=== PATIENT | male | born 1960 | race Caucasian/White ===

== ENCOUNTER 2019-09-28 13:18 | Outpatient (CLI) | payer OTHER, SELFPAY ==
--- NOTE | ~2019-09-28 | CT_ITS ---
EXAMINATION: CT abdomen pelvis wo/w con DATE: 09/28/2019 14:11 INDICATION: Hematuria, weight loss, right-sided abdominal pain TECHNIQUE: Computed tomography (CT) of the abdomen and pelvis was performed without intravenous contr ast. CT of the abdomen and pelvis was then performed with a total of 130 mL Omnipaque 350 intravenous contrast using a double-bolus technique for simultaneous opacification of the renal parenchyma and r enal collecting system. The dose-length product (DLP) was 1491.59 mGy-cm. Automated exposure control and iterative reconstruction technique were employed. COMPARISON: 03/09/2019 FINDINGS: Minimal dependent atelectasis is present in the lung bases. The heart size is normal. A tra ce pericardial effusion is noted. The gallbladder is surgically absent. The liver, spleen, pancreas, and adrenal glands are normal. No stones are identified in the kidneys, ureters, or bladder. There is no hydronephrosis or hydroureter. Cysts of the left kidney measure up to 6 mm. No suspicious renal o r urothelial lesion is identified. No pathologically enlarged abdominal or pelvic lymph nodes are george ntified. There is no free intraperitoneal gas or evidence of bowel obstruction. There is calcified at herosclerosis of the aorta and many of the other arteries. The appendix is normal. There is colonic d iverticulosis without evidence of diverticulitis. Again noted is thickening of the sigmoid colon whic h is unchanged since the prior examination. There is severe lumbar spondylosis at L5-S1. IMPRESSION: 1. No CT correlate for the patient's symptoms. 2. Chronic thickening of the sigmoid colon which could reflect diverticulitis but correlation with co lonoscopy history is recommended to exclude underlying neoplasm. Reviewed, dictated and finalized at location A. DER IMPRESSION: 1. No CT correlate for the patient's symptoms. 2. Chronic thickening of the sigmoid colon which could reflect diverticulitis b ut correlation with colonoscopy history is recommended to exclude underlying ne oplasm.
[2019-09-28 13:42] LABS: Blood Urea Nitrogen 11 mg/dL (8-26); Estimated Glomerular Filt Rate > 60
== END 2019-09-28 13:19 ==
DX: R31.9 Hematuria, unspecified (principal); K63.89 Other specified diseases of intestine; R10.9 Unspecified abdominal pain
CPT/HCPCS: 74178; Q9967

== ENCOUNTER 2020-05-06 11:21 | Outpatient (CLI) | payer OTHER, SELFPAY ==
--- NOTE | ~2020-05-06 | MR_ITS ---
EXAMINATION: MR cervical spine wo con DATE: 05/06/2020 12:19 INDICATION: Cervical spondylosis. Neck pain. TECHNIQUE: Magnetic resonance imaging (MRI) of the cervical spine was performed without intravenous c ontrast. Sequences included sagittal T2-weighted FSE, sagittal STIR FSE, sagittal T1-weighted FSE, ax ial MERGE, and axial T2-weighted FSE. COMPARISON: Cervical spine MRI 07/12/2009 FINDINGS: There is 2 mm anterolisthesis of C3 on C4. Vertebral body heights are normal. There is mild ly decreased disc height at C3-C4, C5-C6, and C6-C7. The spinal cord signal intensity is normal. The following disc levels are specifically discussed: C2-C3: There is a central protrusion. There is moderate right uncovertebral joint osteoarthritis. The re is mild right and severe left facet joint osteoarthritis. There is mild bilateral neural foraminal stenosis. There is no central canal stenosis. C3-C4: The disc is bulging. There is mild right and severe left uncovertebral joint osteoarthritis. T here is mild right and severe left facet joint osteoarthritis. There is moderate left neural foramina l stenosis. There is mild central canal stenosis. C4-C5: The disc does not extend beyond the endplate margin. There is mild left uncovertebral joint os teoarthritis. There is mild right and severe left facet joint osteoarthritis. There is mild left neur al foraminal stenosis. There is no central canal stenosis. C5-C6: The disc is bulging. There is mild bilateral uncovertebral joint osteoarthritis. There is linda re right and moderate left facet joint osteoarthritis. There is mild left neural foraminal stenosis. There is mild central canal stenosis. C6-C7: The disc is bulging. There is mild bilateral uncovertebral joint osteoarthritis. There is mode rate right and severe left facet joint osteoarthritis. There is mild bilateral neural foraminal steno sis. There is no central canal stenosis. C7-T1: The disc does not extend beyond the endplate margin. There is no uncovertebral joint osteoarth ritis. There is moderate bilateral facet joint osteoarthritis. There is no neural foraminal stenosis. There is no central canal stenosis. IMPRESSION: 1. Moderate cervical spondylosis, worsened from 07/12/2009. Reviewed, dictated and finalized at location A.
== END 2020-05-06 11:22 ==
LOC: MICIMG 11:21
PROVIDERS: PCP Emergency Medicine; Visit Provider Emergency Medicine
DX: M47.892 Other spondylosis, cervical region (principal)
CPT/HCPCS: 72141

== ENCOUNTER 2020-06-26 10:45 | Outpatient (CLI) | payer OTHER, SELFPAY ==
--- NOTE | ~2020-06-26 | CT_ITS ---
EXAMINATION:CT lung screening DATE: 06/26/2020 10:59 INDICATION: Personal history of tobacco dependence. Current smoker with 54 pack year history. TECHNIQUE: Computed tomography (CT) of the chest was performed without intravenous contrast. Automate d exposure control and iterative reconstruction technique were employed. The dose-length product (DLP ) was 123.24 mGy-cm. COMPARISON: Chest CT 12/23/2018 FINDINGS: There is moderate emphysema. There is mild scarring at right lung apex. There is a 5 mm nod ule at left major fissure without change. There is a 5 mm nodule in left upper lobe without change. N o pleural effusion. The heart size is normal. There is a chronic small pericardial effusion. There is mild bilateral gynecomastia. There are changes of cholecystectomy. There is mild thoracic spondylosi s. IMPRESSION: 1. Lung-RADS category 2: Benign appearance or behavior. Continue annual screening with noncontrast lo w-dose chest CT in 12 months. Reviewed, dictated and finalized at location B. ANCE DIRECTOR IMPRESSION: 1. Lung-RADS category 2: Benign appearance or behavior. Continue annual screeni ng with noncontrast low-dose chest CT in 12 months.
== END 2020-06-26 10:46 ==
LOC: MICIMG 10:46
PROVIDERS: PCP Emergency Medicine; Visit Provider Emergency Medicine
DX: Z72.0 Tobacco use (principal); Z12.2 Encounter for screening for malignant neoplasm of respiratory organs
CPT/HCPCS: G0297

== ENCOUNTER 2021-01-17 11:21 | Emergency (ER) | payer OTHER, SELFPAY ==
--- NOTE | ~2021-01-17 | CT_ITS ---
EXAMINATION: CTA neck EXAM DATE: 01/17/2021 12:52 INDICATION: Right neck pain, difficulty swallowing. TECHNIQUE: Spiral CTA of the carotid arteries was performed with intravenous injection 100cc of Omnip aque 350. Axial, coronal, sagittal reformatted images reviewed. Additional reformatted images creat ed on dedicated 3-D workstation. NASCET comparable standard used to assess the degree of arterial st enosis. The dose-length product (DLP) for this examination was 555.09 mGy-cm. The exposure was tail ored according to patient size (auto mA exposure control), and iterative reconstruction (ASIR) was us ed as additional dose reduction technique. There is no prior study for comparison. FINDINGS: There is tiny amount of bilateral carotid bulb plaque, 0% stenosis bilaterally. Carotid sip hons are also widely patent. Left vertebral artery is dominant. No aortic arch, carotid, vertebral di ssection or evidence of fibromuscular dysplasia. No cervical lymphadenopathy. Parotid, submandibular glands are unremarkable. There is a right thyroid lobe 1.5 cm nodule. Parapharyngeal fat planes are clear. Mild to moderate paraseptal emphysema. Subcutaneous nodule overlying the right posterior cervical triangle, lateral aspect of the neck measu ring 1.8 cm, likely containing proteinaceous fluid. Location and appearance most consistent with seba ceous cyst but please clinically correlate. Advanced left-sided facet arthropathy C2-5, with signific ant left C3-4 neural foraminal stenosis suspected. IMPRESSION: 1. Bilateral carotid bulb 0% stenosis. 2. Right lateral neck subcutaneous nodule most likely sebaceous cyst. 3. Right thyroid lobe nodule; consider nonemergent ultrasound for risk stratification. 4. Mild to moderate paraseptal emphysema. 5. Cervical spondylosis. Reviewed, dictated and finalized at location B. IMPRESSION: 1. Bilateral carotid bulb 0% stenosis. 2. Right lateral neck subcutaneous nodule most likely sebaceous cyst. 3. Right thyroid lobe nodule; consider nonemergent ultrasound for risk stratif ication. 4. Mild to moderate paraseptal emphysema. 5. Cervical spondylosis.
[2021-01-17 11:26] VITALS: BP 150/94; PULSE 101; RESP 17; TEMP 36.7; O2SAT 100
[2021-01-17 12:01] VITALS: BP 139/86; PULSE 85; RESP 20; O2SAT 97
[2021-01-17 12:15] LABS: Basophils Percent Auto 0.4 % (0.2-1.2); Eosinophils Absolute Auto 0.1 K/mm3 (0-0.3); Eosinophils Percent Auto 0.9 % (0-4.4); Hematocrit 44.5 % (42.0-52.0); Hemoglobin 15.5 g/dL (14.0-18.0); Immature Granulocyte Absolute 0.03 K/mm3 (0.00-0.031); Immature Granulocyte Percent A 0.3 % (0-0.5); Lymphocytes Absolute Auto 2.07 K/mm3 (0.9-3.2); Lymphocytes Percent Auto 22.8 % (18.3-44.2); Mean Corpuscular HGB Conc 34.8 g/dl (32-36); Mean Corpuscular Hemoglobin 32.4 pg (26-34); Mean Corpuscular Volume 92.9 fl (80-100); Mean Platelet Volume 9.4 fl (7.4-10.4); Monocytes Absolute Auto 0.6 K/mm3 (0.1-0.6); Monocytes Percent Auto 6.2 % (2.6-8.5); Neutrophils Absolute Auto 6.3 K/mm3 (1.3-6.7); Neutrophils Percent Auto 69.4 % (45.5-73.1); Platelet Count Result 223 k/mm3 (150-375); Red Blood Count 4.79 M/mm3 (4.6-6.20); Red Cell Distribution Width 12.6 % (11.5-14.5); White Blood Count 9.1 K/mm3 (4.5-10.0)
--- NOTE | 2021-01-17 12:22 | ED.GENADULT ---
HPI - General Adult General Chief complaint: Neck Pain/Injury Stated complaint: neck started swelling up Time Seen by Provider: 01/17/21 11:38 History of Present Illness HPI narrative: Patient is a 60-year-old male who presents ER with right neck pain and swelling. Patient reports he was mowing his lawn a couple days ago when he felt a pop in his neck. He then reports became tight and she is started having pressure along his esophagus and trachea that gives him discomfort when he tries to swallow. No lightheadedness or syncope. Has discomfort that radiates down into his chest. No chest pain or new back pain. Patient reports chronic numbness to his right neck over the last year that is not related to this issue. Patient also reports a cyst on his right neck that he has not had evaluated. Related Data Home Medications Medication Instructions Recorded Confirmed hydrocodone 7.5 mg-acetaminophen 1 tablet PO Q8H PRN 09/15/20 09/27/20 325 mg tablet omeprazole 20 mg-sodium 1 cap PO DAILY 09/15/20 09/27/20 bicarbonate 1.1 gram capsule tamsulosin mg PO 01/17/21 Allergies Allergy/AdvReac Type Severity Reaction Status Date / Time latex Allergy Mild Rash Verified 01/17/21 11:40 Review of Systems Review of Systems: All systems reviewed & are unremarkable except as noted in HPI and below Constitutional: Constitutional: Denies chills and Denies fever(s) ENT: Denies nasal congestion and Denies sore throat Comments: Right neck pain Cardiovascular: Cardiovascular: Denies chest pain, Denies rapid heart rate and Denies radiating jaw, neck or arm pain Respiratory: Respiratory: Denies cough and Denies dyspnea Gastrointestinal: Gastrointestinal: Denies abdominal pain, Denies nausea and Denies vomiting Neurologic: Denies dizziness, Denies focal weakness and Reports numbness (Chronic right neck) [facility] Past Medical History Medical History (Updated 01/17/21 @ 14:18 by Harris Murillo MD) Carpal tunnel syndrome IBS (irritable bowel syndrome) Ulnar club hand Surgical History Surgical History Hx of cholecystectomy Social History Social History (Updated 09/27/20 @ 10:12 by Liz Weiner CMA) Smoking status: Former smoker Tobacco type: cigarettes Alcohol intake: never Substance use: never Gender identity (if verbalized by the patient): Male Exam Narrative: Exam Narrative: GENERAL: Well-appearing, well-nourished, and in no acute distress. HEAD: Normocephalic, atraumatic. ENT: Normal posterior oropharynx. Tolerating oral secretions without issue. NECK: Supple. No discernible swelling. Large sebaceous cyst right side. Trachea midline. CHEST: Clear to auscultation. No respiratory distress. No stridor. HEART: Regular rate and rhythm. Normal peripheral pulses. EXTREMITIES: Normal range of motion. No edema. SKIN: Warm, dry, no rash. NEURO: Alert and oriented x3. PSYCH: Normal mood and affect. Course Course Emergency Course: Patient informed of results. Discharge home. Vital Signs Vital signs: Vital Signs Temperature 98.1 F 01/17/21 11:26 Pulse Rate 101 H 01/17/21 11:26 Respiratory Rate 17 01/17/21 11:26 Blood Pressure 150/94 H 01/17/21 11:26 Pulse Oximetry 100 01/17/21 11:26 Temperature 98.1 F 01/17/21 11:26 Pulse Rate 70 01/17/21 13:02 Respiratory Rate 13 01/17/21 13:02 Blood Pressure 139/85 01/17/21 13:02 Pulse Oximetry 100 01/17/21 13:02 Medical Decision Making Vital Signs Vital Signs: Vital Signs Temperature 98.1 F 01/17/21 11:26 Pulse Rate 101 H 01/17/21 11:26 Respiratory Rate 17 01/17/21 11:26 Blood Pressure 150/94 H 01/17/21 11:26 Pulse Oximetry 100 01/17/21 11:26 Temperature 98.1 F 01/17/21 11:26 Pulse Rate 70 01/17/21 13:02 Respiratory Rate 13 01/17/21 13:02 Blood Pressure 139/85 01/17/21 13:02 Pulse Oximetry 100 01/17/21 13:02 Lab Da
[2021-01-17 12:23] LABS: Anion Gap 10 mmol/L (8-16); Blood Urea Nitrogen 7 mg/dL (9-20); Calcium 9.6 mg/dL (8.4-10.2); Carbon Dioxide 24 mmol/L (22-30); Chloride 108 mmol/L (98-107); Estimated CRCL calculation 79 ml/min; Estimated Glomerular Filt Rate > 60; Glucose 106 mg/dL (75-110); Potassium 4.1 mmol/L (3.4-5.0); Sodium 142 mmol/L (137-145)
[2021-01-17 12:24] LABS: INR 0.9; Partial Thromboplastin Time 30.9 SECONDS (22.3-36.8); Prothrombin Time 12.6 Seconds (11.1-14.7)
[2021-01-17 12:54] VITALS: BP 153/87; PULSE 73; RESP 18; O2SAT 100
[2021-01-17 13:02] VITALS: BP 139/85; PULSE 70; RESP 13; O2SAT 100
[2021-01-17 14:30] VITALS: BP 136/81; PULSE 82; RESP 16; O2SAT 100
== END 2021-01-17 14:30 | disposition home or self-care (01) ==
PROVIDERS: Emergency Provider Emergency Medicine; PCP Emergency Medicine
DX: S16.1XXA Strain of muscle, fascia and tendon at neck level, initial encounter (principal); E04.1 Nontoxic single thyroid nodule; K58.9 Irritable bowel syndrome, unspecified; Z87.891 Personal history of nicotine dependence; M47.812 Spondylosis without myelopathy or radiculopathy, cervical region; J43.9 Emphysema, unspecified; X50.9XXA Other and unspecified overexertion or strenuous movements or postures, initial encounter
CPT/HCPCS: 36415; 70498; 80048; 85025; 85610; 85730; 99284; Q9967

== ENCOUNTER → 2021-01-27 10:09 | Outpatient (CLI) | payer OTHER, SELFPAY ==
--- NOTE | ~2021-01-27 | US_ITS ---
EXAMINATION: US thyroid DATE: 01/27/2021 10:27 INDICATION: Thyroid nodule TECHNIQUE: Multiple ultrasound images of the thyroid were obtained. COMPARISON: CTA neck dated 01/17/2021 FINDINGS: The right thyroid lobe measures 3.8 x 2.3 x 1.4 cm. The left thyroid lobe measures 3.5 x 1.5 x 1.1 c m. Thyroid isthmus measures 5 mm in thickness. 1.9 cm wider than tall solid hypoechoic nodule with sm ooth margins and without echogenic foci (TI-RADS 4, moderately suspicious , FNA if >=1.5 cm, annual f ollowup is >=1 cm) in the right thyroid lobe. There is normal echotexture, echogenicity and vascular flow throughout the thyroid gland. IMPRESSION: 1. 0.9 cm solid TI RADS 4 nodule in the right thyroid for which ultrasound-guided biopsy would be rec ommended. Reviewed, dictated and finalized at location A. IMPRESSION: 1. 0.9 cm solid TI RADS 4 nodule in the right thyroid for which ultrasound-guid ed biopsy would be recommended.
== END ==
PROVIDERS: Visit Provider Emergency Medicine
DX: E04.1 Nontoxic single thyroid nodule (principal)
CPT/HCPCS: 76536

== ENCOUNTER 2021-02-16 10:10 | Outpatient (CLI) | payer OTHER, SELFPAY ==
--- NOTE | ~2021-02-16 | US_ITS ---
EXAMINATION: US FNA w image guidance DATE: 02/16/2021 11:14 INDICATION: Right thyroid nodule. TECHNIQUE: The procedure and its benefits and risks were discussed with the patient. Risks specifically discusse d included bleeding. The patient verbalized understanding of the risks and agreed to proceed. The nec k was prepped and draped in the usual sterile manner. 1% lidocaine was used for local anesthesia. 5 passes were made with a 25G needle into the lesion under ultrasound guidance. There were no immedia te complications. The patient understood to call the ordering physician for results after a week and a half and verbalized that understanding. FINDINGS: Grayscale ultrasound images demonstrate needles advanced into a 2.1 cm nodule in right thyroid lobe f or biopsy. IMPRESSION: 1. Ultrasound-guided fine needle aspiration of a right thyroid nodule. Reviewed, dictated and finalized at location A.
== END 2021-02-16 10:11 | disposition home or self-care (01) ==
PROVIDERS: PCP Emergency Medicine; Visit Provider Otolaryngology
DX: E04.1 Nontoxic single thyroid nodule (principal)
CPT/HCPCS: 10005; 88173; 88305

== ENCOUNTER 2021-02-19 18:53 | Emergency (ER) | payer OTHER, SELFPAY ==
[2021-02-19 19:52] VITALS: BP 131/88; PULSE 98; RESP 17; TEMP 36.7; O2SAT 99
[2021-02-19 20:16] LABS: Basophils Percent Auto 0.3 % (0.2-1.2); Eosinophils Percent Auto 0.1 % (0-4.4); Hematocrit 45.6 % (42.0-52.0); Immature Granulocyte Absolute 0.06 K/mm3 (0.00-0.031); Immature Granulocyte Percent A 0.4 % (0-0.5); Lymphocytes Absolute Auto 1.96 K/mm3 (0.9-3.2); Lymphocytes Percent Auto 12.6 % (18.3-44.2); Mean Corpuscular HGB Conc 35.1 g/dl (32-36); Mean Corpuscular Hemoglobin 32.7 pg (26-34); Mean Corpuscular Volume 93.1 fl (80-100); Mean Platelet Volume 9.5 fl (7.4-10.4); Monocytes Absolute Auto 1.4 K/mm3 (0.1-0.6); Monocytes Percent Auto 8.9 % (2.6-8.5); Neutrophils Absolute Auto 12.1 K/mm3 (1.3-6.7); Neutrophils Percent Auto 77.7 % (45.5-73.1); Platelet Count Result 218 k/mm3 (150-375); Red Cell Distribution Width 12.4 % (11.5-14.5); White Blood Count 15.6 K/mm3 (4.5-10.0)
[2021-02-19 20:24] LABS: Add Urine Microscopic? YES; Appearance Urine Clear (Clear); Bacteria Urine Trace /hpf; Bilirubin Urine Negative (Negative); Blood Urine 1+ (Negative); Color Urine Yellow (Yellow); Glucose Urine UA Negative (Negative); Ketones Urine 2+ mg/dL (Negative); Leukocyte Esterase Ur Negative LEU/UL (Negative); Mucus Urine Heavy /lpf; Nitrate Urine Negative (Negative); Protein Urine 1+ mg/dL (Negative); Specific Grav Ur 1.024 (1.001-1.035); Squamous Epithelial Cell Urine Occasional /hpf (Few); Urobilinogen Urine Negative mg/dL (<2.0); WBC Urine 0-3 /hpf
[2021-02-19 20:26] LABS: Alanine Aminotransferase 14 U/L (4-50); Albumin Level 4.7 g/dL (3.5-5.1); Alkaline Phosphatase 102 U/L (38-126); Anion Gap 12 mmol/L (8-16); Aspartate Amino Transferase 20 U/L (17-59); Blood Urea Nitrogen 9 mg/dL (9-20); Calcium 9.6 mg/dL (8.4-10.2); Carbon Dioxide 23 mmol/L (22-30); Chloride 104 mmol/L (98-107); Estimated CRCL calculation 87 ml/min; Estimated Glomerular Filt Rate > 60; Glucose 97 mg/dL (75-110); Lipase 83 U/L (23-300); Potassium 3.9 mmol/L (3.4-5.0); Sodium 139 mmol/L (137-145)
[2021-02-19 21:44] VITALS: BP 140/77; PULSE 96; RESP 14; TEMP 37; O2SAT 99
--- NOTE | 2021-02-20 00:39 | PC.NURSE ---
Pt called to be roomed. No answer from the WR.
== END 2021-02-20 03:28 | disposition left against medical advice (07) ==
PROVIDERS: Emergency Provider Emergency Medicine; PCP Emergency Medicine
DX: Z53.21 Procedure and treatment not carried out due to patient leaving prior to being seen by health care provider (principal)
CPT/HCPCS: 36415; 80053; 81001; 83690; 85025; 99199

== ENCOUNTER 2021-03-05 12:34 | Emergency (ER) | payer OTHER, SELFPAY ==
[2021-03-05 12:50] VITALS: BP 134/99; PULSE 84; RESP 17; TEMP 36.7; O2SAT 100
--- NOTE | 2021-03-05 13:58 | ED.SKABFB ---
HPI - Skin/Abscess/Foreign Bdy General Chief complaint: Skin/Abscess/Foreign Body Stated complaint: Lump on Neck Source: patient and RN notes reviewed Limitations: no limitations History of Present Illness HPI narrative: The patient, on minimal meds who is followed by ENT, presents with neck pain/wound check. Patient states he has had a recent CT scan of his neck and ultrasound biopsy of his thyroid after being seen by ENT for thyroid nodule and separate cyst. He also has a known ganglion cyst of the right neck, US shows sebaceous cyst. The last couple days has had increasing redness and discomfort with spontaneous discharge this morning -despite the Augmentin provided by his doctor. No fever, hoarseness, trismus, abscess / fluctuance -and the discharge is thick/cheesy. He has upcoming appointment, discussed plan to provide pain meds and slightly stronger antibiotic [ so stop augmentin] . 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 Related Data Home Medications Medication Instructions Recorded Confirmed amoxicillin-pot clavulanate 1 tablet PO DAILY 03/05/21 03/05/21 Allergies Allergy/AdvReac Type Severity Reaction Status Date / Time latex Allergy Mild Rash Verified 03/05/21 12:52 Review of Systems Review of Systems: Narrative: General/Constitutional: No weight loss,fever Eyes: N0: Redness,discharge Ears/Nose/Throat: No: Epistaxis,ear discharge Respiratory: Denies: Hemoptysis Gastrointestinal: No Vomiting, Bleeding-rectal Skin: REPORTS lumps, eruption Neurologic: No Focal Weakness,Sz Hematologic: Denies: Petechiae/Purpura Psychiatric: No: Suicida ideationl All Other Systems: Reviewed and Negative [facility] Past Medical History Medical History (Updated 03/06/21 @ 00:01 by Lakshmi Garsia) Carpal tunnel syndrome IBS (irritable bowel syndrome) Ulnar club hand Surgical History Surgical History Hx of cholecystectomy Social History Social History (Updated 09/27/20 @ 10:12 by Liz Weiner CMA) Smoking status: Former smoker Tobacco type: cigarettes Alcohol intake: never Substance use: never Gender identity (if verbalized by the patient): Male Comments At time of signature, agree with nursing past medical, surgical, social and family history. There is no relevant family history pertinent to the presenting complaint Exam Narrative: Exam Narrative: General Appearance: Well appearing, Well nourished, No distress EYE: PERRLA, EOMI Ears: External ear normal, Auditory canal normal Nose: Normal nose, Nares clear Mouth/Throat: Normal appearing, Normal lips Neck: Supple, No adenopathy Respiratory: Airway patent, No respiratory distress Skin: Warm, Dry; infected sebaceous cyst on the right neck with spontaneously oozing cheesy discharge Neurological: A&O x3, CN II-X intact Psychiatric: Normal mood, Normal affect Course Vital Signs Vital signs: Vital Signs Temperature 98.1 F 03/05/21 12:50 Pulse Rate 84 03/05/21 12:50 Respiratory Rate 17 03/05/21 12:50 Blood Pressure 134/99 H 03/05/21 12:50 Pulse Oximetry 100 03/05/21 12:50 Temperature 98.1 F 03/05/21 12:50 Pulse Rate 84 03/05/21 12:50 Respiratory Rate 17 03/05/21 12:50 Blood Pressure 134/99 H 03/05/21 12:50 Pulse Oximetry 100 03/05/21 12:50 Discharge Plan Discharge Clinical Impression: Infected cyst of skin Patient Disposition: Home, Self-Care Condition: Stable Instructions: Antibiotic Form Additional Instructions: Take clindamycin with food, probiotics, or antacids; stop if diarrhea occurs Keep photo log of area; see ENT as scheduled this week Prescriptions: New cyclobenzaprine 10 mg tablet 10 mg PO BID Qty: 20 RF: 0 acetaminophen-codeine 120-12 mg/5 mL solution 5 - 7.5 ml PO HS PRN (Reason: pain) Qty: 118
== END 2021-03-05 14:06 | disposition home or self-care (01) ==
PROVIDERS: Emergency Provider Emergency Medicine; PCP Emergency Medicine
DX: L72.0 Epidermal cyst (principal); Z87.891 Personal history of nicotine dependence
CPT/HCPCS: 99213; G0463

== ENCOUNTER 2021-09-04 14:31 | Emergency (ER) | payer OTHER, SELFPAY ==
--- NOTE | ~2021-09-04 | XR_ITS ---
EXAMINATION: XR knee LT 3V DATE: 09/04/2021 15:05 INDICATION: Left knee pain. TECHNIQUE: 3 views of left knee were obtained. COMPARISON: None. FINDINGS: Bone alignment is normal. No fracture. There is mild tricompartmental osteoarthritis charac terized by tiny marginal osteophytes. No joint space narrowing. There is a small knee joint effusion. IMPRESSION: 1. Mild left knee osteoarthritis. 2. Small left knee joint effusion. Reviewed, dictated and finalized at location A. RIOR DESIGN DIRECTOR
--- NOTE | 2021-09-04 14:37 | ED.LOWEXIN ---
HPI - Extremity Injury (Lower) General Chief Complaint: Extremity Injury, Lower Stated Complaint: Left Knee Pain Time Seen by Provider: 09/04/21 14:43 Source: patient, RN notes reviewed and old records reviewed Mode of arrival: ambulatory Limitations: no limitations History of Present Illness HPI Narrative: 60-year-old male presents to the [facility] with complaints of left knee pain for 2 days. Has taken ibuprofen, tried using a knee brace, icing it and heating it Related Data Allergies Allergy/AdvReac Type Severity Reaction Status Date / Time latex Allergy Mild Rash Verified 09/04/21 15:24 Review of Systems Review of Systems: All systems reviewed & are unremarkable except as noted in HPI and below Constitutional: Constitutional: Reports no additional constitutional complaints, Denies chills and Denies fever(s) Eyes: Eyes: Reports no additional eye complaints ENT: Reports system reviewed and no additional complaints, except as documented Cardiovascular: Cardiovascular: Reports no additional cardiovascular complaints and Denies chest pain Respiratory: Respiratory: Reports no additional respiratory complaints Gastrointestinal: Gastrointestinal: Reports no additional gastrointestinal complaints Musculoskeletal: Musculoskeletal: Reports as per HPI, Reports arthralgias (left knee) and Reports joint swelling (left knee) Comments: walking with a limp Integumentary/Breasts: Skin/Breast: Reports system reviewed and no additional complaints, except as docu Neurologic: Reports system reviewed and no additional complaints, except as documented Psychiatric: Psychiatric: Reports no additional psychiatric complaints Allergic/Immunologic: Allergic/Immunologic: Reports no additional allergic/immunologic complaints PMFSH Past Medical History Medical History Carpal tunnel syndrome IBS (irritable bowel syndrome) Ulnar club hand Surgical History Surgical History Hx of cholecystectomy Social History Social History Smoking status: Former smoker Tobacco type: cigarettes Alcohol intake: never Substance use: never Gender identity (if verbalized by the patient): Male Comments At the time of my signature, I reviewed and agree with the nursing past medical, surgical, social, and family history. There is no relevant family history pertinent to the patient complaint. Exam Const: General: healthy appearing, no acute distress and alert Nutritional Appearance: well nourished Orientation/consciousness: patient oriented x3 Limitations: no limitations HENMT: Head: normal to inspection Ears: external ears normal Eyes: Pupils: Equal, round and reactive pupils present Neck: Neck: normal visual inspection, no lymphadenopathy and no meningeal signs Chest: Chest palpation & inspection: normal inspection of the chest Resp: Effort & Inspection: normal respiratory effort Cardio: Rate: regular rate Back/Spine/Pelvis: Back: no CVA tenderness Skin: General skin exam: normal color Rashes: no rashes Wounds: no wounds Neuro: General: patient oriented x3, moves all extremities, no meningeal signs and no focal motor deficits Cranial nerves: Yes Equal, round and reactive pupils present Speech: normal speech Gait exam (Neuro): gait abnormal (walking with a limp favoring left leg) Extrem: General: full ROM, capillary refill normal and normal exam except as noted Left lower extremity: knee Details: tenderness (Posterior and lateral), swelling (Mild lateral), normal ROM and knee ligament exam normal; no abrasions, no ecchymosis, no penetrating wound, no deformity and no unusual warmth Psych: Appearance: grossly normal and well kempt Mental Status: mental status grossly normal Affect: normal affect Attitude: cooperative Thought content: Yes Normal thought content present Course Cou
[2021-09-04 14:42] VITALS: BP 147/87; PULSE 91; RESP 16; TEMP 37.2; O2SAT 99
== END 2021-09-04 15:24 | disposition home or self-care (01) ==
PROVIDERS: Emergency Provider Nurse Practitioner; PCP Emergency Medicine
DX: M25.462 Effusion, left knee (principal); M17.12 Unilateral primary osteoarthritis, left knee; Z87.891 Personal history of nicotine dependence
CPT/HCPCS: 73562; 99213; G0463

== ENCOUNTER → 2021-10-19 13:16 | Outpatient (CLI) | payer OTHER, SELFPAY ==
--- NOTE | ~2021-10-19 | CT_ITS ---
EXAMINATION: CT lung screening DATE: 10/19/2021 13:35 INDICATION: Personal history of tobacco dependence. Lung cancer screening. TECHNIQUE: Computed tomography (CT) of the chest was performed without intravenous contrast. The dose -length product was 93.64 mGy-cm. Automated exposure control and iterative reconstruction technique w ere employed. COMPARISON: CT dated 06/26/2020 FINDINGS: Small pericardial effusion. Heart size normal. No thoracic lymphadenopathy. No significant pleural effusion. There are cholecystectomy clips. There is moderate emphysema. There is a 4 mm left upper lobe nodule, unchanged. There is a 5 mm nodule of the left major fissure without change. Calcif ied granuloma right upper lobe. No new pulmonary nodules or masses. There is bilateral gynecomastia. IMPRESSION: 1. Lung-RADS category 2: Benign appearance or behavior. Continue annual screening with noncontrast lo w-dose chest CT in 12 months. Reviewed, dictated and finalized at location A. WELDER IMPRESSION: 1. Lung-RADS category 2: Benign appearance or behavior. Continue annual screeni ng with noncontrast low-dose chest CT in 12 months.
== END ==
PROVIDERS: PCP Emergency Medicine; Visit Provider Emergency Medicine
DX: Z12.2 Encounter for screening for malignant neoplasm of respiratory organs (principal); Z87.891 Personal history of nicotine dependence
CPT/HCPCS: 71271

== ENCOUNTER 2021-11-29 13:49 | Outpatient (CLI) | payer OTHER, SELFPAY ==
--- NOTE | ~2021-11-29 | US_ITS ---
EXAMINATION: US soft tissue head and neck EXAM DATE: 11/29/2021 14:14 INDICATION: Neck pain on left side . TECHNIQUE: Multiple grayscale and Doppler images of the left-sided neck symptomatic region were obtai estrella (by a technologist who performed the scan) and subsequently reviewed. There is no prior study fo r comparison. FINDINGS: Scanning in the left-sided neck area of concern demonstrated several small internal jugular chain lym ph nodes well within normal size limits. Unremarkable skin, subcutaneous fat, sternocleidomastoid. IMPRESSION: Small left internal jugular chain lymph nodes well within normal size limits. Reviewed, dictated and finalized at location B. IMPRESSION: Small left internal jugular chain lymph nodes well within normal si ze limits.
== END 2021-11-29 13:50 ==
LOC: MICIMG 13:49
PROVIDERS: PCP Emergency Medicine; Visit Provider Otolaryngology
DX: M54.2 Cervicalgia (principal)
CPT/HCPCS: 76536

== ENCOUNTER 2022-01-05 12:16 | Emergency (ER) | payer OTHER, SELFPAY ==
--- NOTE | 2022-01-05 12:24 | ED.EYEPROB ---
HPI - Eye Problem General Chief complaint: Eye Problems Stated complaint: right eye redness/pain Time Seen by Provider: 01/05/22 12:25 Source: patient and RN notes reviewed Mode of arrival: ambulatory Limitations: no limitations History of Present Illness HPI Narrative: 61-year-old male presents to the [facility] with right eye redness, pain, drainage and crusting that started 2 days ago. Swelling noted to the right lower lid. thought it was a stye and has been using warm compresses chief complaint: eye pain (right eye) and eye redness Related Data Allergies Allergy/AdvReac Type Severity Reaction Status Date / Time latex Allergy Mild Rash Verified 01/05/22 12:24 Review of Systems Review of Systems: All systems reviewed & are unremarkable except as noted in HPI and below Constitutional: Constitutional: Reports no additional constitutional complaints, Denies chills and Denies fever(s) Eyes: Eyes: Reports as per HPI, Denies blind spots, Denies blurry vision, Denies exophthalmos, Denies change in vision, Reports eye discharge, Reports irritation, Reports itchy eyes, Denies eye pain, Denies requires corrective lenses and Denies photophobia ENT: Reports system reviewed and no additional complaints, except as documented Cardiovascular: Cardiovascular: Reports no additional cardiovascular complaints Respiratory: Respiratory: Reports no additional respiratory complaints Gastrointestinal: Gastrointestinal: Reports no additional gastrointestinal complaints Musculoskeletal: Musculoskeletal: Reports no additional musculoskeletal complaints Integumentary/Breasts: Skin/Breast: Reports system reviewed and no additional complaints, except as docu Neurologic: Reports system reviewed and no additional complaints, except as documented Psychiatric: Psychiatric: Reports no additional psychiatric complaints Allergic/Immunologic: Allergic/Immunologic: Reports no additional allergic/immunologic complaints [facility] Past Medical History Medical History Carpal tunnel syndrome IBS (irritable bowel syndrome) Ulnar club hand Surgical History Surgical History Hx of cholecystectomy Social History Social History Smoking status: Former smoker Tobacco type: cigarettes Alcohol intake: never Substance use: never Gender identity (if verbalized by the patient): Male Comments At the time of my signature, I reviewed and agree with the nursing past medical, surgical, social, and family history. There is no relevant family history pertinent to the patient complaint. Exam Const: General: healthy appearing, no acute distress and alert Nutritional Appearance: well nourished Orientation/consciousness: patient oriented x3 Limitations: no limitations HENMT: Head: normal to inspection Ears: external ears normal Eyes: General: appearance normal, both eyes and all related structures Visual Stapleton: normal visual stapleton by confrontation Eyelids: eyelid abnormality right lower eyelid inflamed cyst, erythema, lid margins crusty/scaly, swelling and tenderness Conjunctivae: conjunctival abnormality right conjunctival injection localized (Right lower lid) and discharge mucoid; without chemosis and without subconjunctival hemmorhages Pupils: Equal, round and reactive pupils present Neck: Neck: normal visual inspection, no lymphadenopathy and no meningeal signs Chest: Chest palpation & inspection: normal inspection of the chest Resp: Effort & Inspection: normal respiratory effort and no use of accessory muscles Auscultation: clear to auscultation bilaterally, no crackles, no rales, no rhonchi and no wheezes Cardio: Rate: regular rate Rhythm: regular rhythm GI: GI Palp: Yes Soft to palpation and No Tenderness to palpation present (GI) Back/Spine/Pelvis: Back: no CVA tenderness Skin: Gener
[2022-01-05 12:26] VITALS: BP 129/87; PULSE 77; RESP 16; TEMP 36.4; O2SAT 99
== END 2022-01-05 12:50 | disposition home or self-care (01) ==
PROVIDERS: Emergency Provider Nurse Practitioner; PCP Emergency Medicine
DX: H10.9 Unspecified conjunctivitis (principal); H00.012 Hordeolum externum right lower eyelid; Z87.891 Personal history of nicotine dependence
CPT/HCPCS: 99213; A9270; G0463

== ENCOUNTER 2023-05-26 13:19 | Emergency (ER) | payer BC, SELFPAY ==
--- NOTE | ~2023-05-26 | CT_ITS ---
EXAMINATION: CT abdomen pelvis wo con DATE: 05/26/2023 13:52 INDICATION: Right flank pain. TECHNIQUE: Computed tomography (CT) of the abdomen and pelvis was performed without intravenous contr ast. Automated exposure control and iterative reconstruction technique were employed. The dose-length product was 179.97 mGy-cm. COMPARISON: CT abdomen and pelvis 09/28/2019 FINDINGS: The visualized portions of the lung bases demonstrated minimal atelectasis on the left. No pleural effusion. The heart size is normal. There is a stable small pericardial effusion. The liver a nd spleen are normal. There are changes of cholecystectomy. The pancreas, adrenal glands, and right k idney are normal. There is a 13 mm cyst in left kidney. There is no urolithiasis. The prostate is mil dly enlarged. There is calcified atherosclerosis of the aorta and many of the other arteries. There i s diverticulosis of the colon without evidence of diverticulitis. There are no dilated loops of bowel . The appendix is normal. There are no pathologically enlarged lymph nodes. There is no free intraper itoneal fluid. There is severe lumbar spondylosis. IMPRESSION: 1. No urolithiasis. Reviewed, dictated and finalized at location A. IMPRESSION: 1. No urolithiasis.
--- NOTE | ~2023-05-26 | XR_ITS ---
EXAMINATION: XR chest 2V DATE: 05/26/2023 13:55 INDICATION: Chest pain and right flank pain TECHNIQUE: PA and lateral views of the chest were obtained. COMPARISON: Chest CT dated 10/19/2021 FINDINGS: Mild increased lucency in the parasternal upper lungs consistent with emphysema better appreciated on prior CT. Small focus of linear lingular atelectasis/scarring extending peripherally from the apex o f heart. No other airspace opacities, pulmonary edema, pleural effusion or pneumothorax. Heart size i s normal. Mild thoracic spondylosis with chronic mild anterior wedging at T7. IMPRESSION: 1. Emphysema with mild lingular atelectasis/scarring. Reviewed, dictated and finalized at location A.
[2023-05-26 13:23] VITALS: BP 143/85; PULSE 73; RESP 16; O2SAT 100
--- NOTE | 2023-05-26 13:32 | ED.BACK ---
HPI - Back Pain/Injury General Chief Complaint: Back Pain/Injury Stated Complaint: right flank pain Time Seen by Provider: 05/26/23 13:31 History of Present Illness HPI Narrative: Patient is a 62-year-old male with history of diverticulosis, chronic back and neck pain here with right sided flank pain. he notes that his flank pain began 4 days ago, seems to be located over the right flank and radiates anteriorly into the lower abdomen. He notes he has had some increased urinary frequency does drink quite a bit a water so he is unsure if this is a change for him. He denies dysuria or hematuria. He notes a history of chronic back pain and initially thought that this was his back pain however the nature of it seemed to be quite a bit different so he decided to present to the emergency department to get seen. He does note chronic lower extremity numbness which is unchanged from his baseline. Denies bowel or bladder incontinence. No saddle anesthesia. No history of prior kidney stones. He additionally does note some neck pain and left-sided chest pain which she notes has been constant for the last 2 years. This is unchanged. He denies cough, congestion, fever, chills. Related Data Allergies Allergy/AdvReac Type Severity Reaction Status Date / Time latex Allergy Mild Rash Verified 05/26/23 14:16 Review of Systems Review of Systems: All systems reviewed & are unremarkable except as noted in HPI and below PMFSH Past Medical History Medical History Carpal tunnel syndrome IBS (irritable bowel syndrome) Ulnar club hand Surgical History Surgical History Hx of cholecystectomy Social History Social History Smoking status: Former smoker Tobacco type: cigarettes Alcohol intake: never Substance use: never Living arrangements: with family Occupation/Education: retired Gender identity (if verbalized by the patient): Male Exam Narrative: GENERAL: Well-appearing, well-nourished, and in no acute distress. HEAD: Normocephalic, atraumatic. EYES: PERRLA and EOMI. ENT: Nares clear. Mucous membranes moist. NECK: Supple. CHEST: Clear to auscultation. No respiratory distress. HEART: Regular rate and rhythm. Normal peripheral pulses. ABDOMEN: Soft, nontender, nondistended. Right sided CVA tenderness. No left CVA tenderness. EXTREMITIES: Normal range of motion. No edema. No midline thoracic or lumbar tenderness. SKIN: Warm, dry, no rash. NEURO: No focal deficits. Alert and oriented x3. PSYCH: Normal mood and affect. Course Course Emergency Course: Chart review performed. Patient is here with right sided flank pain. Triage vitals show mild HTN, otherwise normal. Patient seen evaluated, is here with right-sided flank pain radiating to the abdomen, concern for nephrolithiasis versus pyelonephritis. CT abdomen pelvis, UA, basic abdominal labs ordered. He is additionally complaining of some chest pain that is been present for several years, given age and risk factors we will do a screening cardiac workup including chest x-ray, troponin, EKG. Patient agreeable to plan of care. Lab work and imaging reviewed, WBC 10.1, CMP normal, LFTs normal, UA negative for infection or blood. Troponin negative, CXR negative. CT abdomen pelvis negative. The results of pertinent diagnostic studies and exam findings were discussed. The patient?s provisional diagnosis and plan of care were discussed with the patient and present family. The patient and/or present family expressed understanding of the diagnosis and plan. The nurse was instructed to provide written instructions and appropriate follow-up information. The patient understands their need and responsibility to obtain additional follow-up as instructed. The risks of medications administered and prescribed were discussed w
--- NOTE | 2023-05-26 13:42 | ECG_ITS ---
Measurements Intervals Deport Rate: 71 P: 54 DC: 137 QRS: 57 QRSD: 88 T: 61 QT: 365 QTc: 399 Interpretive Statements SINUS RHYTHM NO PREVIOUS ECG AVAILABLE FOR COMPARISON Electronically Signed On 05-27-2023 15:53:44 CDT by Iglesia Childs M.D.
[2023-05-26 13:45] LABS: Basophils Absolute Auto 0.1 K/mm3 (0.0-0.1); Basophils Percent Auto 0.5 % (0.2-1.2); Eosinophils Absolute Auto 0.1 K/mm3 (0-0.3); Eosinophils Percent Auto 1.1 % (0-4.4); Hematocrit 47.7 % (42.0-52.0); Hemoglobin 16.6 g/dL (14.0-18.0); Immature Granulocyte Absolute 0.03 K/mm3 (0.00-0.031); Immature Granulocyte Percent A 0.3 % (0-0.5); Lymphocytes Percent Auto 21.8 % (18.3-44.2); Mean Corpuscular HGB Conc 34.8 g/dl (32-36); Mean Corpuscular Hemoglobin 33.3 pg (26-34); Mean Corpuscular Volume 95.6 fl (80-100); Mean Platelet Volume 9.4 fl (7.4-10.4); Monocytes Absolute Auto 0.5 K/mm3 (0.1-0.6); Monocytes Percent Auto 4.5 % (2.6-8.5); Neutrophils Absolute Auto 7.2 K/mm3 (1.3-6.7); Neutrophils Percent Auto 71.8 % (45.5-73.1); Platelet Count Result 246 k/mm3 (150-375); Red Blood Count 4.99 M/mm3 (4.6-6.20); Red Cell Distribution Width 12.4 % (11.5-14.5); White Blood Count 10.1 K/mm3 (4.5-10.0)
[2023-05-26 13:46] LABS: Add Urine Microscopic? NO; Appearance Urine Clear (Clear); Bilirubin Urine Negative (Negative); Blood Urine Negative (Negative); Color Urine Yellow (Yellow); Glucose Urine UA Negative (Negative); Ketones Urine Negative (Negative); Leukocyte Esterase Ur Negative LEU/UL (Negative); Nitrate Urine Negative (Negative); Protein Urine Negative (Negative); Specific Grav Ur <= 1.005 (1.001-1.035); Urobilinogen Urine 0.2 mg/dL (<2.0); pH Urine 5.5 (5.0-9.0)
[2023-05-26 13:49] LABS: Bacteria Urine None Seen /hpf; Non Pathogenic Casts 0-2; RBC Urine 0-2 /hpf (0-2); Squamous Epithelial Cell Urine None seen /hpf (Few); WBC Urine 0-5 /hpf
[2023-05-26 13:56] LABS: Alanine Aminotransferase 19 U/L (6-50); Alkaline Phosphatase 81 U/L (38-126); Anion Gap 7 mmol/L (8-16); Aspartate Amino Transferase 28 U/L (17-59); Bilirubin,Total 0.7 mg/dL (0.2-1.3); Blood Urea Nitrogen 12 mg/dL (9-20); Calcium 9.4 mg/dL (8.4-10.2); Carbon Dioxide 27 mmol/L (22-30); Chloride 104 mmol/L (98-107); Estimated CRCL calculation 78 ml/min; Estimated Glomerular Filt Rate > 60; Glucose 123 mg/dL (65-110); Lipase 239 U/L (23-300); Potassium 4.4 mmol/L (3.4-5.0); Sodium 138 mmol/L (137-145)
[2023-05-26] MEDS: ACETAMINOPHEN 500 MG TABLET 1000 MG PO (14:22)
[2023-05-26] MEDS: KETOROLAC 30 MG/ML VIAL (*BKC) 15 MG IV PUSH (14:22)
[2023-05-26 14:33] LABS: Troponin I < 0.012 ng/mL (0.000-0.034)
== END 2023-05-26 15:06 | disposition home or self-care (01) ==
PROVIDERS: Emergency Provider Student in an Organized Health Care Education/Training Program; PCP Emergency Medicine
DX: R07.89 Other chest pain (principal); M54.50 Low back pain, unspecified; G89.29 Other chronic pain
CPT/HCPCS: 36415; 71046; 74176; 80053; 81003; 83690; 84484; 85025; 93005; 96374; 99284; A9270; J1885

== ENCOUNTER → 2023-06-20 15:35 | Outpatient (CLI) | payer BC, SELFPAY ==
--- NOTE | ~2023-06-20 | CT_ITS ---
EXAMINATION: CT lung screening DATE: 06/20/2023 15:53 INDICATION: Personal history of nicotine dependence TECHNIQUE: Computed tomography (CT) of the chest was performed without intravenous contrast. The dose -length product was 79.06 mGy-cm. Automated exposure control and iterative reconstruction technique were employed. COMPARISON: Comparison to multiple prior studies sequentially, with oldest reviewed study dated 11/2021. FINDINGS: No thoracic lymphadenopathy. Small pericardial effusion. No significant pleural effusion. The upper abdomen is unremarkable. There are cholecystectomy clips. There is emphysema. Stable 4 mm f issural nodule on the left, image 29. There are lingular infiltrates, most likely atelectasis/scarrin g. There is a 3 mm left upper lobe nodule, image 53. No endobronchial lesions. No pneumothorax. Mild thoracic spondylosis. There is gynecomastia. IMPRESSION: 1. Lung-RADS category 2: Benign appearance or behavior. Continue annual screening with noncontrast lo w-dose chest CT in 12 months. Reviewed, dictated and finalized at location A. IMPRESSION: 1. Lung-RADS category 2: Benign appearance or behavior. Continue annual screeni ng with noncontrast low-dose chest CT in 12 months.
== END ==
PROVIDERS: PCP Emergency Medicine; Visit Provider Emergency Medicine
DX: Z12.2 Encounter for screening for malignant neoplasm of respiratory organs (principal); Z87.891 Personal history of nicotine dependence
CPT/HCPCS: 71271

== ENCOUNTER 2023-08-22 13:11 | Outpatient (CLI) | payer BC, SELFPAY ==
--- NOTE | ~2023-08-22 | US_ITS ---
EXAMINATION: US thyroid DATE: 08/22/2023 13:40 INDICATION: Thyroid nodule. TECHNIQUE: Multiple ultrasound images of the thyroid were obtained. COMPARISON: Ultrasound 01/27/2021 FINDINGS: The right thyroid lobe measures 4.6 x 2.5 x 1.8 cm. The left thyroid lobe measures 3.5 x 1.6 x 1.1 c m. In the right thyroid lobe, there is a 2.3 cm solid, hypoechoic, wider than tall nodule with jama h margin without echogenic foci (TI-RADS TR4). IMPRESSION: 1. Stable thyroid nodule status post benign biopsy on 02/16/2021. Reviewed, dictated and finalized at location E. [employer]
== END 2023-08-22 13:12 ==
PROVIDERS: PCP Emergency Medicine; Visit Provider Emergency Medicine
DX: E04.1 Nontoxic single thyroid nodule (principal)
CPT/HCPCS: 76536

== ENCOUNTER 2023-10-28 00:15 | Day surgery (SDC) | payer BC, SELFPAY ==
[2023-10-21 11:24] VITALS: BMI 21.8
--- NOTE | 2023-10-24 10:37 | SUR.PREOP ---
Patient called regarding upcoming procedure. Unable to leave message.
[2023-10-28 09:20] VITALS: BP 108/76; PULSE 96; RESP 18; TEMP 36.8; O2SAT 100; BMI 21.2
[2023-10-28] MEDS: LACTATED RINGERS 1,000 ML 150 ML IV CONT (09:23)
--- NOTE | 2023-10-28 09:31 | P.PNAN_ITS ---
Anes - Initial Pre Proc Eval Procedure: Operation Date: 10/28/23 10:30 Proposed Procedures p Colonoscopy - Clement Isaacs MD Date/Time: 10/28/23 09:31 Surgeon: Clement Isaacs MD Pre Op Diagnosis: Personal history of colon polyps Patient Data Age: 62 Gender: M Height: 1.85 m Weight: 73 kg Last Vital Signs Temp 98.2 F 10/28/23 09:20 Pulse 96 10/28/23 09:20 Resp 18 10/28/23 09:20 BP 108/76 10/28/23 09:20 Pulse Ox 100 10/28/23 09:20 O2 Del Method Room Air 10/28/23 09:20 Allergies Allergy/AdvReac Type Severity Reaction Status Date / Time latex Allergy Intermediate Rash Verified 10/28/23 09:18 Home Medications Medication Instructions Recorded Confirmed Type cyclobenzaprine 5 mg tablet 5 mg PO BID PRN muscle spasm 10/21/23 10/28/23 History hydrocodone 7.5 mg-acetaminophen 1 tablet PO Q6H PRN Pain 10/21/23 10/28/23 History 325 mg tablet Patient hx anesthesia problems: none Family hx anesthesia problems: none Results Review: All pre-operative results and documents have been reviewed as part of the pre- operative evaluation. [facility] Past Medical History Medical History Carpal tunnel syndrome IBS (irritable bowel syndrome) Ulnar club hand Surgical History Surgical History Hx of cholecystectomy Social History Social History Smoking packs per day: 1 Smoking cigarettes per day: 20.0 Years smoked: 40 Smoking pack-years: 40.00 Smoking status: Current every day smoker Tobacco type: cigarettes Alcohol intake: never Substance use: current Substance use type: marijuana Other substance usage details: OCC. Living arrangements: with family Occupation/Education: retired Gender identity (if verbalized by the patient): Male Spiritual care concerns: No Anes - Eval Final PreProcedure Day of Procedure 10/28/23 09:31 Patient weight: normal Heart: regular rate and rhythm Lungs: clear to auscultation Airway: Mallampati scale class III Neurological: alert and oriented Last oral intake: >/= 8 hours ASA classification: II Emergent: no Anesthetic plan: proceed Anesthesia type and monitoring: general GIVS and standard monitoring Results Review: All pre-operative results and documents have been reviewed as part of the pre- operative evaluation. Informed Consent: The patient's anesthetic plan and its attendant risks and benefits were discussed with the patient/family/POA. Questions were solicited and answers provided to the satisfaction of the patient/family/POA.
--- NOTE | 2023-10-28 09:46 | PM.HPGS ---
History of Present Illness History of Present Illness Consent: Risks, benefits, and alternatives have been discussed and questions answered. Patient agrees to proceed with procedure. Chief complaint: Personal history of colon polyps Narrative: Foreign Zamora is a 62 year old male with colon polyp 5 years ago Review of Systems Review of Systems: All systems reviewed & are unremarkable except as noted in HPI and below PMFSH Past Medical History Medical History (Updated 10/28/23 @ 09:46 by Clement Isaacs MD) Carpal tunnel syndrome Colon polyp IBS (irritable bowel syndrome) Ulnar club hand Surgical History Surgical History Hx of cholecystectomy Social History Social History Smoking packs per day: 1 Smoking cigarettes per day: 20.0 Years smoked: 40 Smoking pack-years: 40.00 Smoking status: Current every day smoker Tobacco type: cigarettes Alcohol intake: never Substance use: current Substance use type: marijuana Other substance usage details: OCC. Living arrangements: with family Occupation/Education: retired Gender identity (if verbalized by the patient): Male Spiritual care concerns: No Meds Home Medications and Allergies Home Medications Medication Instructions Recorded Confirmed Type cyclobenzaprine 5 mg tablet 5 mg PO BID PRN muscle spasm 10/21/23 10/28/23 History hydrocodone 7.5 mg-acetaminophen 1 tablet PO Q6H PRN Pain 10/21/23 10/28/23 History 325 mg tablet Allergies Allergy/AdvReac Type Severity Reaction Status Date / Time latex Allergy Intermediate Rash Verified 10/28/23 09:18 Vital Signs Vital Signs - 24 hr 10/28/23 09:20 Temperature 98.2 F Pulse Rate 96 Respiratory Rate 18 Blood Pressure 108/76 Pulse Oximetry 100 Oxygen Delivery Room Air Exam Const: General: comfortable and no acute distress HENMT: Face/Nose/Sinus: Normal nares present Eyes: General: appearance normal, both eyes and all related structures Neck: Neck: no JVD Resp: Auscultation: clear to auscultation bilaterally Cardio: Rate: regular rate Rhythm: regular rhythm GI: Inspection: non-distended GI Palp: Yes Soft to palpation Skin: General skin exam: normal color Neuro: General: gait normal Speech: normal speech Extrem: General: normal to inspection Psych: Mental Status: mental status grossly normal Assessment and Plan Assessment and plan (1) Colon polyp: Code(s): K63.5 - Polyp of colon Status: Acute Assessment and Plan: colonoscopy
[2023-10-28 10:02] VITALS: BP 87/45; PULSE 85; RESP 24; O2SAT 100
[2023-10-28 10:12] VITALS: BP 100/74; PULSE 86; RESP 18; O2SAT 99
[2023-10-28 10:22] VITALS: BP 113/85; PULSE 94; RESP 18; O2SAT 99
== END 2023-10-28 10:24 | disposition home or self-care (01) ==
PROVIDERS: PCP Emergency Medicine; Visit Provider Internal Medicine Gastroenterology
PROC: 0DJD8ZZ Inspection of Lower Intestinal Tract, Via Natural or Artificial Opening Endoscopic (ICD-10-PCS; CPT 45378; principal; 2023-10-28 10:30)
DX: Z12.11 Encounter for screening for malignant neoplasm of colon (principal); K63.5 Polyp of colon; K57.30 Diverticulosis of large intestine without perforation or abscess without bleeding; K64.8 Other hemorrhoids; K58.9 Irritable bowel syndrome, unspecified; Z79.891 Long term (current) use of opiate analgesic; Z79.899 Other long term (current) drug therapy; F17.210 Nicotine dependence, cigarettes, uncomplicated; F17.290 Nicotine dependence, other tobacco product, uncomplicated
CPT/HCPCS: 45385; 88305; J2704; J7120

== ENCOUNTER 2024-03-05 11:38 | Emergency (ER) | payer BC, SELFPAY ==
--- NOTE | ~2024-03-05 | XR_ITS ---
XR knee LT 3V 03/05/2024 12:16 Indication: Left knee pain Procedure: 3 views left knee Comparison: 09/04/2021 Findings: No fracture, subluxation or dislocation. No significant joint effusion. No foreign bodies. Impression: 1: No acute bone or joint abnormality. Reviewed, dictated and finalized at location B. Impression: 1: No acute bone or joint abnormality.
[2024-03-05 11:40] VITALS: BP 124/85; PULSE 92; RESP 18; TEMP 36.7; O2SAT 98
--- NOTE | 2024-03-05 12:39 | ED.LOWEXIN ---
HPI - Extremity Injury (Lower) General Chief Complaint: Extremity Injury, Lower Stated Complaint: L knee pain Time Seen by Provider: 03/05/24 11:51 History of Present Illness HPI Narrative: 63-year-old male presents to the emergency room for evaluation of left knee pain. States 1 month ago he was installing a new letter to his pool when he began developing left knee pain to the medial surface. Patient was referred to Orthopedics, he was given a steroid injection. Patient reports initial pain following the injection. Patient was told he needed to go to physical therapy prior to any advanced imaging. States couple of days ago he was walking down a sidewalk when he developed a sharp stabbing pain began to the medial side of his left knee. Patient states the knee pain is worse with walking upper walking down stairs or inclines. Related Data Home Medications Medication Instructions Recorded Confirmed cyclobenzaprine 5 mg tablet 5 mg PO BID PRN muscle spasm 10/21/23 10/28/23 hydrocodone 7.5 mg-acetaminophen 1 tablet PO Q6H PRN Pain 10/21/23 10/28/23 325 mg tablet Allergies Allergy/AdvReac Type Severity Reaction Status Date / Time latex Allergy Intermediate Rash Verified 10/28/23 09:18 Review of Systems Review of Systems: ROS unremarkable except for noted in HPI PMFSH Past Medical History Medical History Carpal tunnel syndrome Colon polyp IBS (irritable bowel syndrome) Ulnar club hand Surgical History Surgical History Hx of cholecystectomy Social History Social History Smoking packs per day: 1 Smoking cigarettes per day: 20.0 Years smoked: 40 Smoking pack-years: 40.00 Smoking status: Current every day smoker Tobacco type: cigarettes Alcohol intake: never Substance use: current Substance use type: marijuana Other substance usage details: OCC. Living arrangements: with family Occupation/Education: retired Gender identity (if verbalized by the patient): Male Spiritual care concerns: No Exam Narrative: GENERAL: Well-appearing, well-nourished, no physical limitations, and in no acute distress. HEAD: Normocephalic, atraumatic. EYES: Conjunctivae normal, PERRLA and EOMI. CHEST: Clear to auscultation. No respiratory distress. No wheezes rales or rhonchi. HEART: Regular rate and rhythm. No murmur heard. Normal peripheral pulses. ABDOMEN: Soft, nontender, nondistended, normal active bowel sounds. EXTREMITIES: Left knee: +TTP to medial and posterior surfaces. No patellar tracking. No joint laxity. FROM. Pain with McMurrays test. SKIN: Warm, dry, no rash. No noted wounds NEURO: No focal deficits. Alert and oriented x3. MAEW. CN's II-XI intact bilaterally, antalgic gait PSYCH: Cooperative. Normal mood and affect. Course Vital Signs Vital signs: Vital Signs Temperature 36.7 C 03/05/24 11:40 Pulse Rate 92 03/05/24 11:40 Respiratory Rate 18 03/05/24 11:40 Blood Pressure 124/85 03/05/24 11:40 Pulse Oximetry 98 03/05/24 11:40 Oxygen Delivery Room Air 03/05/24 11:40 Temperature 36.7 C 03/05/24 11:40 Pulse Rate 92 03/05/24 11:40 Respiratory Rate 18 03/05/24 11:40 Blood Pressure 124/85 03/05/24 11:40 Pulse Oximetry 98 03/05/24 11:40 Oxygen Delivery Room Air 03/05/24 11:40 Discharge Plan Discharge Clinical Impression: Injury of knee, left Patient Disposition: Home, Self-Care Condition: Stable Instructions: Antibiotic Form Prescriptions: New hydrocodone-acetaminophen 5-325 mg tablet 1 tablet PO Q6H PRN (Reason: pain) Qty: 20 0RF No Action hydrocodone-acetaminophen 7.5-325 mg tablet 1 tablet PO Q6H PRN (Reason: Pain) Patient Comments: PT STATES HE TAKES 0.5 TAB QAM AND ANOTHER HALF IF NEEDED cyclobenzaprine 5
== END 2024-03-05 13:30 | disposition home or self-care (01) ==
PROVIDERS: Emergency Provider Nurse Practitioner Family; PCP Emergency Medicine
DX: S89.92XA Unspecified injury of left lower leg, initial encounter (principal); F17.210 Nicotine dependence, cigarettes, uncomplicated; X58.XXXA Exposure to other specified factors, initial encounter
CPT/HCPCS: 73562; 99283

== ENCOUNTER 2024-04-02 11:01 | Outpatient (CLI) | payer BC, SELFPAY ==
--- NOTE | ~2024-04-02 | MR_ITS ---
EXAMINATION: MR knee LT wo con DATE: 04/02/2024 11:34 INDICATION: Left lower leg injury with generalized left knee pain, weakness, limited range of motion and giving out TECHNIQUE: Magnetic resonance imaging (MRI) of the left knee was performed without intravenous contra st. Sequences included coronal PD-weighted FSE, coronal PD-weighted FS FSE, sagittal T2-weighted FSE , sagittal PD-weighted FS FSE and axial PD weighted fat saturated FSE. COMPARISON: Radiographs dated 03/23/24 FINDINGS: Medial compartment: Medial meniscus is normal. Chondral ulceration and deep fissuring at the central weightbearing medial femoral condyle with mild underlying subarticular edema-like signal change. Normal cartilage along t he medial tibial plateau. Lateral compartment: Small complex tear extending to the superior and inferior articular surfaces in the inner half of the medial meniscal body. There is deep chondral fissuring with minimal underlying edema-like signal shaun nge at the posterior medial aspect of the lateral tibial plateau. Patellofemoral compartment: Partial-thickness chondral fissuring without degenerative subchondral changes but with adjacent small marginal osteophytes along the medial margin of the medial tibial plateau. Additional partial-thickn ess chondral fissuring without degenerative subchondral changes at the inferior margin of the medial trochlea. Shallow chondral surface regularity along the inferior aspect of the lateral trochlea. Ligaments and tendons: Anterior and posterior cruciate ligaments are normal. The medial collateral ligament and fibular ruddy ateral ligament complex are normal. Patellar tendon is normal. Small enthesophytes at the patellar in sertion of the otherwise unremarkable distal quadriceps tendon. The visualized medial and lateral ham string tendons as well as the iliotibial band are normal. Fluid: Physiologic amount of fluid in the joint space. No loose osteochondral bodies identified. Osseous/other: No fracture or pathologic marrow replacing process. IMPRESSION: 1. Small complex tear at the lateral meniscal body. 2. 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 Reviewed, dictated and finalized at location A. IMPRESSION: 1. Small complex tear at the lateral meniscal body. 2. 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
== END 2024-04-02 11:02 ==
PROVIDERS: PCP Emergency Medicine; Visit Provider Orthopaedic Surgery
DX: S83.272A Complex tear of lateral meniscus, current injury, left knee, initial encounter (principal); M17.12 Unilateral primary osteoarthritis, left knee; M94.262 Chondromalacia, left knee
CPT/HCPCS: 73721

== ENCOUNTER 2024-05-03 00:34 | Day surgery (SDC) | payer BC, SELFPAY ==
[2024-04-26 13:33] VITALS: BMI 22.2
--- NOTE | 2024-04-26 13:42 | PC.NURSE ---
Report to the Outpatient Waiting Room, entrance under the green pavilion located off [facility], at time _0600_ on date _[id number]_. Planned Procedure Time: _0730_.? Time changes happen often and if your time is changed the preop area will call you the afternoon before. - You and your visitor will be asked to self-screen and do not enter if you have any COVID symptoms. Please call surgeon if you need to reschedule. - A mask is optional within the hospital at this time. Patients may have clear liquids (water, carbonated beverages, clear teas, apple juice) until 3 hours prior to surgery with a maximum of 20 ounces. - No food from midnight until time of surgery and no smoking Take only the following medications with a SIP of water on the morning of surgery: ___Pain pill if needed. DO NOT STOP ANY OF YOUR OTHER PRESCRIPTION MEDICATIONS PRIOR TO SURGERY EXCEPT THE FOLLOWING Medications to discontinue per physician ____None___ Date to take last dose Please no make-up, nail malian, hairspray, perfume, deodorant, or body powder the day of surgery.? No jewelry (including any body piercings) or valuables the day of surgery, leave them at home.? Please take a shower or bath the night before, or the morning of, surgery with an antibacterial soap.? Wear comfortable, loose fitting clothing.? - Jewelry must be removed prior to entering the operating room.? Rings and piercings that are not removed may be cut off. - The hospital will not accept responsibility for valuables.? - Please leave all valuables, including medications, at home the day of surgery. If you are going home after surgery, a licensed chassis driver must drive you home.? - NO public transportation without another adult if you receive anesthesia. - We recommend that an adult stay with you for 24 hours following discharge. - We also recommend that you do not drive, make important decision, drink alcoholic beverages, or take any drugs that were not prescribed by your health care provider for at least 24 hours after your discharge time. Follow any additional instructions given to you from your surgeon. Telephone instructions given to __Foreign__and asked if any additional questions and then verbalized understanding. Patient advised to call surgeon office or pre surgery nurse liaison [phone] if any additional questions.
[2024-05-03] VITALS (7 sets, daily range): BP systolic 109–137; BP diastolic 74–92; PULSE 57–80; RESP 16–17; TEMP 36.1–36.5; O2SAT 100
[2024-05-03] MEDS: ACETAMINOPHEN 500 MG TABLET 1000 MG PO (06:40)
--- NOTE | 2024-05-03 07:13 | WPDHPUPDATE1 ---
History and Physical Update Update Date/Time: 05/03/24 07:13 History and Physical has been reviewed, including an updated exam of the patient. There are NO changes in the patient's condition. Risks, benefits, and alternatives have been discussed and questions answered. Patient agrees to proceed with procedure.
[2024-05-03] MEDS: KETOROLAC 15 MG/ML VIAL (*BKC) IV PUSH (07:15)
--- NOTE | 2024-05-03 07:22 | WPDANESEPPF ---
Anes - Initial Pre Proc Eval Procedure: Operation Date: 05/03/24 07:30 Proposed Procedures p Left Knee Arthroscopy, Debride Meniscus, Chondroplasty Proceed As Indicated - Lewis Acosta MD Date/Time: 05/03/24 07:22 Surgeon: Lewis Acosta MD Pre Op Diagnosis: left knee pain, meniscus tear,chondromalacia Patient Data Age: 63 Gender: M Height: 1.83 m Weight: 74.6 kg Last Vital Signs Temp 97.7 F 05/03/24 06:44 Pulse 77 05/03/24 06:44 Resp 16 05/03/24 06:44 BP 137/79 05/03/24 06:44 Pulse Ox 100 05/03/24 06:44 O2 Del Method Room Air 05/03/24 06:44 Allergies Allergy/AdvReac Type Severity Reaction Status Date / Time latex Allergy Intermediate Rash Verified 05/03/24 06:12 Home Medications Medication Instructions Recorded Confirmed Type hydrocodone 5 mg-acetaminophen 325 1 tablet PO Q6H PRN pain #20 tabs 03/05/24 05/03/24 Rx mg tablet Patient hx anesthesia problems: none Family hx anesthesia problems: none Results Review: All pre-operative results and documents have been reviewed as part of the pre-operative evaluation. FORMERLY [facility], [facility] Past Medical History Medical History Acute lateral meniscus tear of left knee Acute medial meniscus tear of left knee Carpal tunnel syndrome Colon polyp IBS (irritable bowel syndrome) Ulnar club hand Surgical History Surgical History Hx of cholecystectomy Social History Social History Smoking packs per day: 1 Smoking cigarettes per day: 20.0 Years smoked: 40 Smoking pack-years: 40.00 Smoking status: Current every day smoker Tobacco type: cigarettes Alcohol intake: never Substance use: current Substance use type: marijuana Other substance usage details: OCC. Living arrangements: with family Occupation/Education: retired Gender identity (if verbalized by the patient): Male Spiritual care concerns: No Anes - Eval Final PreProcedure Day of Procedure 05/03/24 07:22 Patient weight: normal Heart: regular rate and rhythm Lungs: clear to auscultation Airway: Mallampati scale class II and special considerations (Missing many teeth upper and lower aspect, none loose per pt. ) Neurological: alert and oriented Last oral intake: >/= 8 hours ASA classification: II Emergent: no Anesthetic plan: proceed Anesthesia type and monitoring: general LMA and standard monitoring Results Review: All pre-operative results and documents have been reviewed as part of the pre-operative evaluation. Pt smokes 1 ppd for 40 years, smoked at approx 6 am today. Informed Consent: The patient's anesthetic plan and its attendant risks and benefits were discussed with the patient/family/POA. Questions were solicited and answers provided to the satisfaction of the patient/family/POA.
[2024-05-03] MEDS: ceFAZolin 2 GM/D5W 50 ML 2 GM/50 ML BAG IVPB (07:29)
[2024-05-03] MEDS: BUPIVACAINE/EPINEPHRINE 0.5% 50 ML VIAL 10 ML INFILTRATE (08:10)
[2024-05-03] MEDS: BUPivacaine HCL 0.25% PF 30 ML VIAL 10 ML INFILTRATE (08:29)
[2024-05-03] MEDS: LACTATED RINGERS 1,000 ML 30 ML IV CONT ×2 (08:37)
--- NOTE | 2024-05-03 08:42 | P.OP_ITS ---
Procedure Note - Detailed Date of Procedure 05/03/24 Pre-op Diagnosis left knee pain, meniscus tear,chondromalacia Post-op Diagnosis Same (Lateral meniscus tear) Procedure Performed left knee arthroscopy with partial lateral meniscectomy Surgeon Lewis Acosta MD Anesthesia General Indications 63-year-old gentleman with left knee pain after injury 4 months ago. Unrelieved with cortisone injection, physical therapy, home exercises and activity modification. MRI shows lateral meniscus tear. Presents for operative treatment. Findings Grade 3 chondromalacia medial femoral condyle, grade 2 chondromalacia medial tibial plateau. Complex tear of the inner border of the lateral meniscus body. Medial meniscus intact. ACL / PCL intact. Minimal chondromalacia lateral compartment. Grade 2 chondromalacia patellofemoral. Description of Procedure Informed consent given by patient. Operative extremity marked in preoperative holding area. Patient received intravenous antibiotics. Patient brought to op erating room and underwent general anesthetic by anesthesia team. Positioned supine on operating room table. Left leg placed into a posterior thigh leg joshi. Foot of the table dropped to 90? and right leg padded out of the field. Time-out performed confirming patient, site of surgery and plan. Left knee prepped and draped in usual sterile surgical fashion using ChloraPrep skin solution. Standard arthroscopic portals made by using a 11 blade knife for the anterior lateral portal 1st. Capsule penetrated bluntly. Camera and inflow started. The below operative findings noted. Intra-articular visualization used to position the anterior medial portal using 22 gauge spinal needle. An 11 blade knife used for the skin and blunt penetration of the capsule. 4.7 millimeter arthroscopic shaver introduced and partial lateral meniscectomy of the loose and torn portion performed. Edge of meniscus completed with arthroscopic Wand. Arthroscopic Wand used to perform chondroplasty of the patellofemoral articulation and the medial femoral condyle. Shaver reintroduced and a synovectomy performed of the anterior fat pad and extensive synovium. Bleeding points coagulated with Wand. Knee inspected, no loose pieces noted. 1 liter of irrigant infused and suction out. Arthroscopic cannulas removed. Skin closed with 4 nylon interrupted suture. Local anesthetic with 0.25% Marcaine. Sterile dressing applied. Patient awoken from anesthesia, extubated and taken to recovery room in stable condition. All sponge needle and instrument counts correct at the end of the case. Estimated Blood Loss 5 Tourniquet Time Total Tourniquet Time: 0 Drains No Packing No Pathology None sent Complications None Condition Stable Disposition PACU [facility] Billing Surgery - Charge Forward: Surgery Billing ([id number])
[2024-05-03] MEDS: fentaNYL CITRATE INJ (*CRX) 100 MCG/2 ML VIAL 25 MCG IV PUSH ×5 (08:48→09:14)
[2024-05-03] MEDS: oxyCODONE HCL (*CRX) 5 MG TAB IR PO (09:56)
== END 2024-05-03 10:21 | disposition home or self-care (01) ==
PROVIDERS: PCP Emergency Medicine; Visit Provider Orthopaedic Surgery
PROC: (CPT 29870; principal; 2024-05-03 07:30)
DX: S83.272A Complex tear of lateral meniscus, current injury, left knee, initial encounter (principal); M94.262 Chondromalacia, left knee; K58.9 Irritable bowel syndrome, unspecified; F17.210 Nicotine dependence, cigarettes, uncomplicated; F12.90 Cannabis use, unspecified, uncomplicated; Z79.891 Long term (current) use of opiate analgesic; Z98.890 Other specified postprocedural states; Z90.49 Acquired absence of other specified parts of digestive tract; Z86.010 Personal history of colon polyps; X58.XXXA Exposure to other specified factors, initial encounter
CPT/HCPCS: 29881; A9270; J0690; J1100; J1885; J2250; J2405; J2704; J3010; J7120

== ENCOUNTER 2024-10-09 13:16 | Emergency (ER) | payer BC, SELFPAY ==
--- NOTE | ~2024-10-09 | CT_ITS ---
EXAMINATION: CT abdomen pelvis w con DATE: 10/09/2024 15:20 INDICATION: Right abdominal pain. Nausea. TECHNIQUE: Computed tomography (CT) of the abdomen and pelvis was performed with 100 mL Omnipaque 350 intravenous contrast. Automated exposure control and iterative reconstruction technique were employe d. The dose-length product was 344.41 mGy-cm. COMPARISON: CT abdomen and pelvis 05/26/2023 FINDINGS: The visualized portions of lung bases demonstrate mild atelectasis. No pleural effusion. Th e heart size is normal. There is a small pericardial effusion. There is a small sliding hiatal hernia . The liver and spleen are normal. There are changes of cholecystectomy. The pancreas, adrenal glands , and right kidney are normal. There are cysts in left kidney measuring up to 17 mm. The prostate is mildly enlarged. There is diverticulosis of the colon without evidence of diverticulitis. There are n o dilated loops of bowel. The appendix is normal. There are no pathologically enlarged lymph nodes. T here is no free intraperitoneal fluid. There is severe lower lumbar spondylosis. IMPRESSION: 1. Small sliding hiatal hernia. 2. Chronic small pericardial effusion. Reviewed, dictated and finalized at location A. TRON GUN INSPECTOR
[2024-10-09 13:16] VITALS: BP 137/87; PULSE 86; RESP 16; TEMP 36.4; O2SAT 100
--- OUTSIDE RECORDS SUMMARY | 2024-10-09 13:18 | XMS_ITS | Data Portability ---
Author Organization [place] [facility] [employer], Main Office Address [address] [place] [address] Care Team Providers Care Field Aide Name Role Phone SARA RAFAELA Primary Care Provider [phone] RAFAELA RUIZ Referring Provider [phone] Assessment Encounter Date Assessment Date Assessment LastModified by Organization Details LastModified Time 02/18/2024 02/18/2024 63 year old male present for his left knee. Reports pain for the past month, denies any injury. He had sharp pain walking on uneven ground, worse with activities. He has been taking meloxicam and hydrocodone without improvement. Denies prior injury. 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 Smokes 1 ppd ROS per questionnaire Antalgic gait, tenderness over medial and lateral joint line. ROM 5-130. Stable ligaments. Positive [facility]. Sensation intact. XR reviewed, minimal degenerative changes I recommended starting with a course of conservative management with PT and continued meloxicam. He insists he does not want PT because he doesn't think it will help. Provided him with home exercises instead. Advised him to discontinue narcotics for this. He wanted something that helps immediately, and discussed cortisone injection which he wanted to proceed with. Follow up PRN. [email or web address] Not available 02/20/2024 15:08:30 Plan of Treatment Reminders Order Date Submit Date Provider Last Modified By Organization Details Last Modified Time Details Appointments None recorded. Lab None recorded. Referral None recorded. Procedures injection/a spiration joint/bursa (PROC) - in office procedure, administere d by provider 2023 024 [email or web address] In-Office Order, Internal Use Only DO Not Attach Compendium DO Not Attach Compendium, Do Not Delete/merge, [address] 11:11:43 Surgeries None recorded. Imaging XR, knee 2023 024 [facility] [place], [address], [place], [address], 4 09:01:36 Medication Orders Marcaine (PF) 0.5 % (5 mg/mL) injection solution [address] [id number], [address] [facility], [place], [place], [phone], 12:15:00 Kenalog 10 mg/mL suspension for injection [address] [id number], [address] , [place], [place], [phone], 12:15:00 Patient TargetsNo targets recorded. Patient InstructionsNo instructions recorded. Reason for Referral None Reported. Results Created Date Observation Date Name Description Value Unit Range Abnormal Flag Note LastModifiedBy Organization Detail LastModifiedTime 02/18/20 24 XR, knee No observ ation record ed. [facility] [place] [address], [place], [address], 02/18/2024 10:39:50 Result Notes None recorded. Problems Name Problem SNOMED Code Status Onset Date Resolution Date Notes Provider Name and Address Organization Details Recorded Time Asthma 943481715 Active Not Available [facility] 3 20:21:28 Pain of left knee joint 775222746937724 Active 2023 JUAN Briones, [employer] 10:39:47 Problem Notes None recorded. Procedures Surgical History Date Name Laterality Status Provider Name and Address Organization Details Recorded Time Ortho - Cortisone Injection completed Ba Good MD [address] [facility], [facility] [address], [place], [address], [employer] 02/20/2024 15:08:44 Imaging Results Imaging Date Name Status LastModified by Organiz ation Details LastModified Time 02/18/2024 XR, knee completed [email or web address] [facility] [place] [address], [place], [address], 02/18/2024 10:39:50 Procedure Notes None recorded. Medical Equipment None Reported. Allergies Allergen ID Allergen Name Allergen Category Reaction Reaction Severity Criticality Documentation Date Start Date Code Code System Note Provider Name and Address Organization Details Recorded Time 49640 latex environme nt,medica tion Not available Not available Not available 10/16/2022 27528 91 RxNorm Not Available [employer] 20:22:53 Medications Name Sig Start Date Stop Date Status Note LastModified by Organization Details LastModified Time cyclobenzap rine 10 mg tablet TAKE 1 TABLET BY MOUTH TWICE DAILY NEEDED 02/09 completed Not Available Not Available Not Available ibuprofen 800 mg tablet 02/09 completed Not Available Not Available Not Available meloxicam 15 mg tablet TAKE 1 TABLET BY MOUTH EVERY DAY active Not Available Not Available No t Available peg-electro lyte solution 420 gram oral solution 02/09 completed Not Available Not Available Not Available omeprazole 40 mg capsule,del ayed release 02/09 completed Not Available Not Available Not Available tramadol 50 mg tablet 02/09 completed Not Available Not Available Not Available triamcinolo ne acetonide 0.025 % topical cream APPLY TOPICALLY TO THE AFFECTED AREA TWICE DAILY UNTIL GONE. RUB IN WELL 02/17 completed Not Available Not Available Not Available dicyclomine 20 mg tablet 02/09 completed Not Available Not Available Not Available Kenalog 10 mg/mL suspension for injection Take 1 mL by injection route. 2023 active ND: 0003- 0494- 20 Not Available Not Available Not Available hydrocodone 7.5 mg-acetamin ophen 325 mg tablet TAKE 1 TABLET BY MOUTH EVERY 6 HOURS NEEDED FOR PAIN active Not Available Not Available No t Available gabapentin 300 mg capsule 02/09 completed Not Available Not Available Not Available omeprazole 20 mg capsule,del ayed release 02/09 completed Not Available Not Available Not Available Levaquin 500 mg tablet Take 1 tablet every 24 hours by oral route. 02/09 completed Not Available Not Available Not Available mirtazapine 15 mg tablet 02/09 completed Not Available Not Available Not Available diazepam 10 mg tablet 02/09 completed Not Available Not Available Not Available methylpredn isolone 4 mg tablets in a dose pack 07/06 completed Not Available Not Available Not Available finasteride 5 mg tablet TK 1 T PO QD 02/09 completed Not Available Not Available Not Available diazepam 5 mg tablet 02/09 completed Not Available Not Available Not Available escitalopra m 10 mg tablet TAKE 1 TABLET BY MOUTH EVERY DAY 02/17 completed Not Available Not Available Not Available cyclobenzap rine 5 mg tablet TAKE 1 TABLET BY MOUTH THREE TIMES DAILY NEEDED FOR MUSCLE SPASM 02/17 completed Not Available Not Available Not Available Marcaine (PF) 0.5 % (5 mg/mL) injection solution Take 4 mL by injection route. 2023 active Not Available Not Available Not Avai lable duloxetine 30 mg capsule,del ayed release TAKE 1 CAPSULE BY MOUTH EVERY DAY 02/17 completed Not Available Not Available Not Available Vitals Date Recorded Body height Body mass index (BMI) Body weight Provider Name and Address Organization Details Last Updated DateTime 02/18/2024 185.42 cm 21.8 kg/m2 24490.74 g JUAN Briones [employer] 02/18/2024 10:36:11 Social History Question Answer Notes LastModified by Organizat ion Details LastModified Time Tobacco Smoking Status Never Smoker JUAN Briones null [employer] 02/18/2024 10:37:35 What Is Your Level Of Alcohol Consumption? None [email or web address] Information not available 02/18/2024 Sex: Unknown Functional Status None recorded. Mental Status None recorded. Family History Relationship Description Onset Age of this Age Resolved Age Notes LastModified by Organization Details LastModified Time Maternal Grandmother Diabetes mellitus [email or web address] Not available 2023 10:37:24 Notes:cancer= brother Medical History No medical history recorded. Past Encounters Encounter ID Performer Location Encounter Start Date Encounter Closed Date Diagnosis/Indication Diagnosis SNOMED-CT Code Diagnosis ICD10 Code Diagnosis Note [id number] Ba Good MD [facility] [place] [address] [place] [address] 02/18/2024 10:18:05 02/18/2024 11:16:12 Pain of left knee joint 8159498485 48379 M25.562 Health Concerns Section Related Observation LastModified by Organization Detai ls LastModified Time None Recorded Concern Status LastModified by Organization Details LastModified Time None Recorded Advance Directives Directive None Recorded Payers Encounter Date Sequence Insurance Name Policy Number Policy Devi Covered Member ID Devi Member ID Guarantor Name 02/18/2024 1 [facility] ([place] [id number] Shawna Zamora [id number] [employer] Zamora
--- OUTSIDE RECORDS SUMMARY | 2024-10-09 13:18 | XMS_ITS | Continuity of Care Document ---
Author Organization [facility] Address [address] [place] [address] Phone Care Team Providers Care Tutor Name Role Phone Mark Lang MD Unavailable Unavailable Allergies, Adverse Reactions, Alerts Substance Reaction Status Criticality latex Active No Information Medications Medication Instructions Dosage Effective Dates (start - stop) Status Comments meloxicam 15 mg tablet take 1 tablet by oral route every day 15 MG - Active hydrocodone 7.5 mg-acetaminophen 325 mg tablet take 1 tablet by oral route every 6 hours as needed for pain as needed 1 tablet - Active PRN for pain, avoid driving or operate machines Procedures Procedure Date OFFICE/OUTPATIENT VISIT, EST OFFICE/OUTPATIENT VISIT, EST OFFICE/OUTPATIENT VISIT, EST OFFICE/OUTPATIENT VISIT, EST PREV VISIT, EST, AGE 40-64 OFFICE/OUTPATIENT VISIT, EST PREV VISIT, EST, AGE 40-64 OFFICE/OUTPATIENT VISIT, EST OFFICE/OUTPATIENT VISIT, EST OFFICE/OUTPATIENT VISIT, EST OFFICE/OUTPATIENT VISIT, EST OFFICE/OUTPATIENT VISIT, EST OFFICE/OUTPATIENT VISIT, EST OFFICE/OUTPATIENT VISIT, EST OFFICE/OUTPATIENT VISIT, EST OFFICE/OUTPATIENT VISIT, EST OFFICE/OUTPATIENT VISIT, EST OFFICE/OUTPATIENT VISIT, EST PREV VISIT, EST, AGE 40-64 OFFICE/OUTPATIENT VISIT, EST OFFICE/OUTPATIENT VISIT, EST OFFICE/OUTPATIENT VISIT, EST OFFICE/OUTPATIENT VISIT, EST OFFICE/OUTPATIENT VISIT, EST OFFICE/OUTPATIENT VISIT, EST OFFICE/OUTPATIENT VISIT, EST PREV VISIT, NEW, AGE 40-64 Advance Directives Directive Yes / No Effective Date File Name No Information Encounters Encounter Description Practice Location Reason(s) For Visit Diagnoses Date Provider Providers Copied on Encounter OFFICE/OUTPA TIENT VISIT, [facility], [address], [place], [place], [address], [place] tel:[phone] [facility] pain (chief complaint) basal cell (chief complaint) knee pain1 (chief complaint) Chronic pain syndromePain in left kneeNevus, non-neoplastic 4 Rickey Flores. [address], [place], [place], [address] , [place]. tel:[phone] Referring Provider: Zachary Chavarria [address], [place], [place], [address]. tel:[phone] OFFICE/OUTPA TIENT VISIT, [facility], [address], [place], [place], [address], [place] tel:[phone] [facility] anxiety1 (chief complaint) colon polyp1 (chief complaint) pain (chief complaint) nevus1 (chief complaint) Polyp of colonGeneralized Anxiety DisorderNevus, non-neoplasticChron ic pain syndrome 4 Rickey Flores. [address], [place], [place], [address] , [place]. tel:[phone] Referring Provider: Zachary Chavarria [address], [place], [place], [address]. tel:[phone] OFFICE/OUTPA TIENT VISIT, [facility], [address], [place], [place], [address], [place] tel:[phone] [facility] anxietty1 (chief complaint) thyroid nodule1 (chief complaint) colon polyp1 (chief complaint) pain (chief complaint) Polyp of colonThyroid noduleChronic pain syndromeGeneralized Anxiety Disorder 0 4 Rickey Muñoz [address], [place], [place], [address] , [place]. tel:[phone] Referring Provider: Zachary Chavarria [address], [place], [place], [address]. tel:[phone] OFFICE/OUTPA TIENT VISIT, EST [facility], [address], [place], [place], [address], [place] tel:[phone] [facility] glucose1 (chief complaint) thyroid nodule1 (chief complaint) polyp1 (chief complaint) anxiety1 (chief complaint) Chronic pain syndromeGeneralized Anxiety DisorderPolyp of colonThyroid noduleHyperglycemia 3 Rickey Muñoz [address], [place], [place], [address] , [place]. tel:[phone] Referring Provider: Zachary Chavarria [address], [place], [place], [address]. tel:[phone] PREV VISIT, EST, AGE 40-64 [facility], [address], [address], [place] tel:[phone] [facility] physical (chief complaint) Encounter for general adult medical exam w abnormal findingsAbnormal weight lossPolyp of colonChronic pain syndromeGeneralized Anxiety Disorder 3 Rickey Muñoz [address], [place], [place], [address] , [place]. tel:[phone] Referring Provider: Zachary Chavarria [address], [place], [place], [address]. tel:[phone] PREV VISIT, EST, AGE 40-64 [facility], [address], [place], [place], [address], [place] tel:[phone] [facility] physical (chief complaint) Encounter for general adult medical exam w abnormal findingsBPH w/o LUTSThyroid noduleGERD w/o esophagitisDisorder of iron metabolism, unspecifiedPain in left kneePolyp of colon 2 Rickey Flores. [address], [place], [place], [address] , [place]. tel:[phone] Referring Provider: Zachary Chavarria [address], [place], [place], [address]. tel:[phone] OFFICE/OUTPA TIENT VISIT, [facility], [address], [place], [place], [address], [place] tel:[phone] [facility] GERD1 (chief complaint) BPH1 (chief complaint) thyroid nodule1 (chief complaint) neck swelling1 (chief complaint) tobacco1 (chief complaint) BPH w/o LUTSIrritable bowel syndromeTobacco useThyroid noduleSebaceous cyst 1 Rickey Muñoz [address], [place], [place], [address] , [place]. tel:[phone] Referring Provider: Zachary Chavarria [address], [place], [place], [address]. tel:[phone] OFFICE/OUTPA TIENT VISIT, [facility], [address], [address], [place] tel:[phone] [facility] pain (chief complaint) abd pain1 (chief complaint) BPH1 (chief complaint) GERD w/o esophagitisBPH w/o LUTSOther spondylosis, cervical regionIrritable bowel syndrome 1 Rickey Muñoz [address], [place], [place], [address] , [place]. tel:[phone] Referring Provider: Zachary Chavarria [address], [place], [place], [address]. tel:[phone] OFFICE/OUTPA TIENT VISIT, [facility], [address], [place], [place], [address], [place] tel:[phone] [facility] tobacco1 (chief complaint) neck pain (chief complaint) GERD1 (chief complaint) weigh tloss (chief complaint) Other spondylosis, cervical regionGERD w/o esophagitisAbnormal weight lossTobacco use 0 Rickey Muñoz [address], [place], [place], [address] , [place]. tel:[phone] Referring Provider: Zachary Chavarria [address], [place], [place], [address]. tel:[phone] OFFICE/OUTPA TIENT VISIT, [facility], [address], [place], [place], [address], [place] tel:[phone] [facility] neck pain1 (chief complaint) tobacco (chief complaint) colon polyp1 (chief complaint) Other spondylosis, cervical regionRadiculopathy , cervical regionTobacco usePolyp of colon 0 Rickey Muñoz [address], [place], [place], [address] , [place]. [phone] Referring Provider: Zachary Chavarria [address], [place], [address]. tel:[phone] OFFICE/OUTPA TIENT VISIT, [facility], [address], [place], [place], [address], [place] tel:[phone] [facility] neck pain1 (chief complaint) LDCT (chief complaint) ferritin1 (chief complaint) Chronic pain syndromeDisorder of iron metabolism, unspecifiedTobacco use Apr- 0 Ric[address] Sh[address], [place], [place], [address] , [place]. [phone] Referring Provider: Zachary Chavarria [address], [place], [place], [address]. tel:[phone] OFFICE/OUTPA TIENT VISIT, [facility], [address], [place], [address], [place] tel:[phone] [facility] neck pain1 (chief complaint) Other spondylosis, cervical regionRadiculopathy , cervical region Aug- 0 Rickey Muñoz [address], [place], [place], [address] , [place]. tel:[phone] Referring Provider: Mark Lang [address], [place], [place], [address]. tel:[phone] OFFICE/OUTPA TIENT VISIT, [facility], [address], [place], [place], [address], [place] tel:[phone] [facility] pain1 (chief complaint) GERD1 (chief complaint) GERD w/o esophagitisOther spondylosis, cervical region 0 Rickey Flores. [address], [place], [place], [address] , [place]. [phone] Referring Provider: Mark Lang, [address], [place], [place], [address]. tel:[phone] OFFICE/OUTPA TIENT VISIT, [facility], [address], [place], [place], [address], [place] tel:[phone] [facility] BPH1 (chief complaint) ferritin1 (chief complaint) neck pain1 (chief complaint) GERD1 (chief complaint) anxiety1 (chief complaint) HematuriaGERD w/o esophagitisDisorder of iron metabolism, unspecifiedOther spondylosis, cervical regionTobacco useGeneralized Anxiety Disorder 0 Rickey Flores. [address], [place], [place], [address] , [place]. [phone] Referring Provider: Zachary Chavarria [address], [place], [place], [address]. tel:[phone] OFFICE/OUTPA TIENT VISIT, [facility], [address], [place], [place], [address], [place] tel:[phone] [facility] blood in urine1 (chief complaint) weight loss1 (chief complaint) ferritin1 (chief complaint) neck pain1 (chief complaint) anxiety1 (chief complaint) HematuriaBPH w/o LUTSDisorder of iron metabolism, unspecifiedCervical giaSebaceous cystGeneralized Anxiety Disorder 0 Rickey Flores. [address], [place], [place], [address] , [place]. tel:[phone] Referring Provider: Zach[address] Chavar[address], [place], [place], [address]. tel:[phone] OFFICE/OUTPA TIENT VISIT, EST [facility], [address], [place], [place], [address], [place] tel:[phone] [facility] anxiety1 (chief complaint) ferritin (chief complaint) mcv (chief complaint) Disorder of iron metabolism, unspecifiedOther specified disease of bloodGeneralized Anxiety DisorderPolyp of colon 9 Rickey Flores. [address], [place], [place], [address] , [place]. tel:[phone] Referring Provider: Zachary Chavarria [email or web address] A, [place], [place], [address]. tel:[phone] PREV VISIT, EST, AGE 40-64 [facility], [address], [place], [place], [address], [place] tel:[phone] [facility] Physical (chief complaint) Encntr for general adult medical exam w/o abnormal findings 9 Rickey Flores. [address], [place], [place], [address] , [place]. tel:[phone] Referring Provider: Zachary Chavarria [facility] [[email or web address]] A, [place], [place], [address]. tel:[phone] OFFICE/OUTPA TIENT VISIT, EST [facility], [address], [place], [address], [place] tel:[phone] [facility] abd pain1 (chief complaint) WBC (chief complaint) anxiety1 (chief complaint) Secondary polycythemiaAbdomin al painGeneralized Anxiety DisorderLeukocytosi sHematuriaHyperglyc emiaBPH w/o LUTS 9 Ric[address], [place], [address] , [place]. tel:[phone] Referring Provider: Zachary Chavarria [address], [place], [place], [address]. tel:[phone] OFFICE/OUTPA TIENT VISIT, [facility], [address], [place], [address], [place] tel:[phone] [facility] anxiety1 (chief complaint) Generalized Anxiety DisorderAdjustment disorder w/ depressed mood 9 Rickey Flores. [address], [place], [place], [address] , [place]. [phone] Referring Provider: Zachary Chavarria [address], [place], [place], [address]. tel:[phone] OFFICE/OUTPA TIENT VISIT, [facility], [address], [place], [place], [address], [place] tel:[phone] [facility] polycythem ia1 (chief complaint) tobacco1 (chief complaint) back pain1 (chief complaint) Secondary polycythemiaChronic pain syndromeAlcohol dependence, uncomplicatedTobacc o use 9 Rickey Flores. [address], [place], [place], [address] , [place]. [phone] Referring Provider: Zachary Chavarria [address], [place], [place], [address]. tel:[phone] OFFICE/OUTPA TIENT VISIT, [facility], [address], [place], [address], [place] tel:[phone] [facility] HTN (chief complaint) mole1 (chief complaint) GERD1 (chief complaint) back pain1 (chief complaint) Essential (primary) hypertensionChronic pain syndromeGERD w/o esophagitisNevus, non-neoplasticTobac co useSecondary polycythemia 9 Rickey Flores. [address], [place], [place], [address] , [place]. [phone] Referring Provider: Zachary Chavarria [address], [place], [place], [address]. tel:[phone] OFFICE/OUTPA TIENT VISIT, [facility], [address], [place], [place], [address], [place] tel:[phone] [facility] abdominal pain1 (chief complaint) BPH1 (chief complaint) low back pain1 (chief complaint) HTN (chief complaint) Essential (primary) hypertensionLumbago with sciatica, left sideBPH w/o LUTSUmbilical hernia without obstruction or gangreneHydrocele 8 Rickey Flores. [address], [place], [place], [address] , [place]. [phone] Referring Provider: Zachary Chavarria [address], [place], [place], [address]. tel:[phone] OFFICE/OUTPA TIENT VISIT, [facility], [address], [place], [address], [place] tel:[phone] [facility] foot pain1 (chief complaint) chronic pain1 (chief complaint) GERD1 (chief complaint) HTN (chief complaint) GERD w/o esophagitisPain in unspecified footEssential (primary) hypertensionTobacco useChronic pain syndrome 8 Rickey Muñoz [address], [place], [address] , [place]. [phone] Referring Provider: Zachary Chavarria [address], [place], [place], [address]. tel:[phone] OFFICE/OUTPA TIENT VISIT, [facility], [address], [place], [place], [address], [place] tel:[phone] [facility] glucose1 (chief complaint) HLP (chief complaint) polycythem ia1 (chief complaint) chronic pain1 (chief complaint) GERD1 (chief complaint) HyperglycemiaHyperl ipidemiaSecondary polycythemiaGERD w/o esophagitis 8 Rickey Muñoz [address], [place], [place], [address] , [place]. tel:[phone] Referring Provider: Mark Lang, [address], [place], [place], [address]. tel:[phone] PREV VISIT, NEW, AGE 40-64 [facility], [address], [place], [place], [address], [place] tel:[phone] [facility] PHysical (chief complaint) Encntr for general adult medical exam w/o abnormal findings 0201 8 Rickey Flores. [address], [place], [place], [address] , [place]. tel:[phone] Referring Provider: Mark Lang, [address] [facility], [place], [place], [address]. tel:[phone] Family History Family Member Type Diagnosis Age At Onset Brother Problem (finding) of mva Mother Problem (finding) thyroid CA Father Problem (finding) CAD (Cause Of ) 43 Mother Problem (finding) Alive and well Brother Problem (finding) of neck CA 50 Mother Problem (finding) knee replacement Payers Payer name Insurance type Covered republican ID Authoriza tion(s) No Information Social History Type Description Quantity Date Captured Comments Alcohol Use Details No Caffeine Use Details Unknown Tobacco Use Status Very heavy cigarette smoker (40+ cigs/day) Smoking Status Heavy tobacco smoker Sex Male Vital Signs Date / Time: Height Weight BMI Pulse Rate Blood Pressure Temperature Respiratory Rate Body Surface Area Head Circumference BMI percentile Pulse Ox Inhaled Ox 10:02 AM 73.00 in 166.40 lbs 21.9 5 kg/m eter (2) 80 /min 110/78 mm[Hg] 98.1 F 16 /min Chief Complaint And Reason For Visit From encounter dated '01/30/2024 10:01'. pain (chief complaint). Description: Pt has chronic neck and back pain due to DDD Pt denies any loss of bowel or bladder control or saddle area paresthesia .Pt needs norco and flexeril refilled basal cell (chief complaint). Description: pt saw dermatology and the moles on his chest area is benign but they did find basal cell cancer left side of nose and it was removed. knee pain1 (chief complaint). Description: Pt has chronic left knee pain with acute worsening left knee pain since 5 days ago. pt denies any injury Pt denies any redness or warmth Pt c/o stabbing left knee pain with stiffness and he notices worsening pain under left knee cap. Pt denies any calf pain. Pt notices mild swelling left knee as well Plan Of Treatment Date Type Action Status Goal Tobacco cessation counseling completed Goal Tobacco cessation counseling completed Goal Tobacco cessation counseling completed Goal Special diet education compl eted Goal Tobacco cessation counseling completed Goal Special diet education compl eted Goal Tobacco cessation counseling completed Goal Special diet education compl eted Goal Tobacco cessation counseling completed Goal Special diet education compl eted Goal Special diet education compl eted Goal Special diet education compl eted Goal Special diet education compl eted Referral Ordered: HAYLEY PACE -[facility] Phys[facility] : Orthopaedic Surgery (related to Pain in left knee) ordered Referral Referred To: HAYLEY PACE [address], [place], [phone] Ordered: Referrals: [facility]opathic [facility] Osteopathic Physicians : Orthopaedic Surgery. HAYLEY PACE. Evaluate and treat ordered Referral Ordered: Dermatology (related to Nevus, non-neoplastic) ordered Referral Ordered: Referrals: Dermatology. Evaluate and treat ordered Referral Referred To: Vin HARDWICK, Abraham Weiner [address] [place], [place], [id number] Ordered: Referrals: Abraham Banuelos MD. Evaluate and treat ordered Referral Ordered: US THYROID ordered Referral Ordered: Myke Shelton MD -Urology (related to BPH w/o LUTS) ordered Referral Referred To: Myke Shelton MD [address] [facility]
[address] [place], [place], [address] Ordered: Referrals: Urology. Myke Shelton MD. Evaluate and treat ordered Referral Referred To: Myke Shelton MD [address] [facility]
[address] [place], [place], [address] Ordered: Referrals: Myke Shelton MD. Evaluate and treat ordered Referral Referred To: Narayan Banks MD [address]
[place], [address] Ordered: Referrals: Narayan Banks MD. Evaluate and treat ordered Referral Ordered: Physical Therapy (related to Other spondylosis, cervical region) ordered Referral Referred To: Physical Therapy Ordered: Referrals: Physical Therapy. Evaluate and treat ordered Referral Ordered: MRI NECK SPINE W/O DYE ordered Referral Ordered: KATHRYN JAY -[facility] Phys[facility] : Surgery (related to Hematuria) ordered Referral Referred To: KATHRYN JAY [address] [place], [place], [phone] Ordered: Referrals: [facility]opathic [facility]opathic Physicians : Surgery. KATHRYN JAY. Evaluate and treat ordered Referral Ordered: COLONOSCOPY AND BIOPSY ordered Referral Ordered: Hematology (related to Secondary polycythemia) ordered Referral Ordered: US EXAM, ABDOM, COMPLETE ordered Referral Ordered: Referrals: Hematology. Evaluate and treat ordered Referral Ordered: José Miguel Catherine -[facility] : Surgery (related to Nevus, non-neoplastic) ordered Referral Referred To: José Miguel Catherine [address] [place], [place] [id number] Ordered: Referrals: [facility]opathic [facility] Osteopathic Physicians : Surgery. José Miguel Catherine. Evaluate and treat ordered Referral Ordered: REGINA MACHUCA -Podiatric Medicine & Surgery Service Providers : Life Science Technical Officer (related to Pain in unspecified foot) ordered Referral Referred To: REGINA MACHUCA [facility] [place], [place], [phone] Ordered: Referrals: Podiatric Medicine & Surgery Service Providers : Life Science Technical Officer. REGINA MACHUCA. Evaluate and treat ordered Referral Ordered: CERVICAL SPINE XRAY 7 VIEWS ordered Referral Ordered: CT THORAX W/O DYE ordered History Of Present Illness Encounter Date Complaint History Of Prese nt Illness basal cell pt saw dermatolo gy and the moles on his chest area is benign but they did find basal cell cancer left side of nose and it was removed. pain Pt has chronic n howard and back pain due to DDD Pt denies any loss of bowel or bladder control or saddle area paresthesia .Pt needs norco and flexeril refilled knee pain1 Pt has chronic l eft knee pain with acute worsening left knee pain since 5 days ago. pt denies any injury Pt denies any redness or warmth Pt c/o stabbing left knee pain with stiffness and he notices worsening pain under left knee cap. Pt denies any calf pain. Pt notices mild swelling left knee as well nevus1 Pt notices a sma ll dark mole mid chest area for several months. Pt denies any bleeding Pt denies any size change pain Pt has chronic n howard and back pain due to DDD Pt denies any loss of bowel or bladder control or saddle area paresthesia .Pt needs norco and flexeril refilled colon polyp1 Pt has sessile p olyps on colonoscopy and he needs to repeat in 5 years Pt denies any GI issue anxiety1 Pt has chronic a nxiety and depression Pt does not like lexapro either Pt states that he can not focus with lexapro Pt denies any suicidal or homicidal thought Pt denies any crying spells. pt states that he does not want anymore SSRis. thyroid nodule1 Pt has history o f thyroid nodule with benign biopsy Pt denies any dysphagia or neck pain. 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 Pt denies any suicidal or homicidal thought Pt denies any crying spells colon polyp1 Pt has tubular a denoma on colonoscopy 2018 and he needs colonoscopy. Pt states that he called his GI and the nurse was very rude and told him he owe some money and was sent to collection and he never asked about making dolores for colonoscopy. Pt denies any lower Gi issue or bleeding pain Pt has chronic n howard and back apin due to DDD Pt denies any loss of bowel or bladder control or saddle area paresthesia .Pt needs norco and flexeril refilled glucose1 Pt has mildly dannielle rderline high glucose pt denies any polyuria polydipsia thyroid nodule1 Pt has normal TS H and borderline high thyroglobulin Pt denies any dysphagia or neck pain. polyp1 Pt has history o f colon polyp. Pt has not heard from GI yet about colonoscopy anxiety1 Pt has mild anxi ety and depression Pt tried cymbalta for one week and he feels more irritable with cymbalta and he stopped it. Pt denies any suicidal or homicidal thought Pt denies any crying spells. Pt feels baseline irritable anyway physical Pt needs annual physical >pt has not see me for almost two years Pt has chronic anxiety and depression with weight loss. Pt states that he does not have much appetite. Pt denies any suicidal or homicidal thought. Pt denies any crying spells. Pt c/o acute on set of right side low back pain with radiation of pain to right side of abdomen since two weeks ago. Pt woke up with pain. Pt denies any nausea, vomiting, diarrhea blood in stool. Pt does have chronic low back pain with bilateral sciatica and leg numbness and tingling Pt denies any injury Pt went to ER several days ago and he had negative lab and also CT of abdomen and pelvis and chest x ray. Pt also never had repeat colonoscopy last year. he received a FIT by insurance and did one which was negative last year. Pt denies any GI issue. physical Pt needs annual physical. Pt has multiple medical issue Pt had benign thyroid nodule biopsy. pt has history of polycythemia s/p evaluation by hematology. He has high ferritin pt was referred to liver specialist but he never went. Pt has not had lab done for several years .Pt has been having recurrent GERD for a while Pt takes a lot of ibuprofen. Pt c/o acute left knee pain with swelling for two weeks Pt denies any acute injury. Pt does have chronic left knee pain but he has not had flare up until two weeks ago. Pt notices left knee swelling with worsening pain with ROM issue Pt went to urgent care and he had x ray showed effusion and arthritis Pt is limping around due to pain Pt was given diclofenac but not working. Pt denies any knee redness or warmth. Pt also has BPH without LUTS. pt is seeing urology Pt is not on any meds Pt doing ok. Pt has adenoma on colonoscopy 2018. 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 Pt denies any sob. Pt went to ER and CTA of neck done which showed sebaceous cyst right side of the neck only thyroid nodule1 Pt has thyroid n odule on CTA of neck. Pt denies any dysphagia. BPH Pt has BPH with LUTS. Pt was started on flomax by urology and had PSA and prostate exam done which was ok per patient. Pt could not tolerate flomax and he is off and he is doing ok with supplement. tobacco1 Pt has 50 pack y ear tobacco. Pt has mild COPD Pt denies any sob Pt denies any hemoptysis GERD Pt denies any GE RD and he saw Gi and was told that he has IBS. Pt is doing diet now and he is doing ok. Pt denies any abd pain BPH1 Pt has BPH witho ut any urinary symptoms. Pt denies any dysuria, ,urgency and frequency. Pt had prostate exam done by urology September 2019. abd pain1 pt c/o abdominal bloating and abdominal discomfort and crampy pain. Pt also c/o recurrent GERD. Pt has been taking tums ,Pt denies any blood in stool. Pt has frequent BM with diarrhea without blood pain Pt has chronic n howard pain due to spondylosis .Pt has radiculopathy Pt takes norco PRN for pain Pt just saw neurosurgery and he will do NCS and he was referred to [facility] and he was started on amitriptyline but had not helped Pt was told to try back injection but he could not afford it now. tobacco1 Pt continues to smoke Pt denies any hemoptysis, sob or cough .LDCT ok neck pain Additional infor mation: Pt has chronic neck pain due to spondylosis .pt has dolores with neurosurgery next week. Pt needs norco refilled. pt denies any worsening pain. GERD1 Pt denies any GE RD or abd pain Pt is off omeprazole. weigh tloss Pt has gained so me weight since last month ,Pt denies any appetite loss, nausea, vomiting, early satiety, etc . colon polyp1 Pt has colon vick yp Pt denies any GI bleeding or lower GI symptoms. tobacco Pt has more than 30 pack year tobacco pt denies any hemoptysis, sob or cough Pt has not done LDCT yet neck pain1 Pt has chronic n howard pain with left radiculopathy Pt c/o mild left arm/hand numbness and weakness. Pt had MRI done which showed moderate cervical spondylosis without bulging disc. Pt is rather uncomfortable daily. Pt failed NSAID. ferritin1 Pt has high ferr itin Pt has not drink alcohol for over one year Pt had benign liver ultrasound. Pt has not seen liver specialist at [facility] yet LDCT PT denies any he moptysis, sob or cough Pt still smoking Pt needs LDCT neck pain1 Pt c/o chronic n howard pain with left radiculopathy Pt failed PT .Pt notices mild weakness left arm with left finger numbness and tingling Pt denies any cold extremity PT denies any finger discoloration neck pain1 Pt has chronic p osterior neck pain with left radiculopathy for 2-3 months. Pt c/o numbness and tingling of left arm and shoulder area radiating down to left hand. Pt tried to do PT for above symptoms which made the neck pain worse. Pt could not tolerate PT after only one session. Pt states that he has worsening left upper extremity numbness and tingling after physical therapy and he has hard time lift things from left arm for the past week. Pt denies any cold extremity Pt denies any injury Pt denies any finger discoloration. Pt states that he feels uncomfortable constantly .Pt had neck x ray done which showed cervical spondylosis with left side facet arthropathy. Pt denies any extremity discoloration GERD1 Pt has mild GERD and he takes omeprazole PRn only pT still has plenty of omeprazole left pain1 Pt c/o chronic n howard pain. Pt c/o left radiculopathy from neck to left elbow area. Pt feels mild weakness left arm. Pt denies any injury. Pt states that his neck pain has been worse. he does have spondylosis with left side facet arthropathy. He has 6/10 sharp pain. Insurance denied MRi due to lack of physical therapy. Pt states that current pain medication does not help. Pt is in 7/10 pain BPH1 Pt has BPH with hematuria. pt did see urology and he told me he had negative CT scan and cysto and digital prostate exam .He is doing ok. he was told above is benign ferritin1 Pt has high ferr itin Pt did see hematology and was referred to liver specialist and his appointment was postponed due to COVID-19. He has not made follow up appointment with liver specialist yet at [facility] He denies any abd pain neck pain1 Pt c/o chronic n howard pain. Pt c/o acute onset of left radiculopathy since two weeks ago. Pt states that left radiculopathy radiating down to left elbow only Pt denies any weakness Pt denies any injury. Pt states that his neck pain has been worse he does have spondylosis with left side facet arthropathy. Pt states that he has hard time moving his left arm due to pain . He has 6/10 sharp pain GERD1 Pt has intermitt ent gerd Pt wants refill of omeprazole. Pt had benign EGD. pt takes it PRn anxiety1 Pt states that a nxiety is doing better now and he is off valium. Pt denies any depression or suicidal or homicidal thought ,Pt denies any crying spells anxiety1 Pt has chronic a nxiety, Pt denies any depression or any suicidal thought Pt denies any crying spells Pt doing ok with valium PRn blood in urine1 Pt c/o blood in urine two weeks ag x one episode pt denies any dysuria, urinary frequency and urgency pt notices darkish urine sometimes pt denies any flank pain, fever, chill. weight loss1 pt unable to gai n weight despite eating more food. Pt had benign EGD and colonoscopy. Pt does have some poor appetite due to severe stress an anxiety from his son passing ferritin1 pt has high ferr itin. Pt was referred to [facility] Gi but he does not have dolores until october. Pt is concerned neck pain1 pt c/o left side neck muscle pain for several weeks pt denies any radiculopathy. Pt denies any injury mcv Pt has enlarged MCV on recent lab. Pt was drinking heavily but not anymore. anxiety1 Pt has anxiety a nd mild depression Pt denies any suicidal or homicidal thought. Pt denies any crying spells ,Pt could not tolerate remeron ,Pt is off remeron Pt wants valium refill. ferritin Pt has high ferr itin. Pt has high MCV. 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 He is confused and is concerned He told me hematology referring him to a specialist at [facility] but he does not know why and who?? His liver is ok on ultrasound and Ct scan. Pt does have intermittent right side periumbilical pain Pt had benign EGD, Pt had colonoscopy done which showed adenoma. He denies any lower GI bleeding He denies any GERD and he is off omeprazole Physical Pt needs annual physical Pt has GERD pt just had EGD done recently but he does not know the result. Pt was given omeprazole 40 mg x 3 months by his GI. Pt also had colonoscopy also which showed polyps Pt has not heard from GI yet. Pt denies any GI bleeding. pt has been losing weight for the past two months Pt has lost of appetite. His son recently. He c/o mild right side abdominal pain once a while Pt had negative Ct scan. pt had benign colonoscopy and EGD. Pt c/o dull ache right side of abdomen chronically for 2-3 months PT denies any relation to food on consistent basis. Pt feels gassy. Pt states that pain occurs randomly. Pt does feel anxious and depressed since his son . Pt takes valium for anxiety, he wants higher dose due to his poor mood. Pt feels anxious and shaky all the time during the day. Pt has no interest with poor motivation. Pt told me everybody around him notices changing of personality. Pt denies any crying spells. Pt has insomnia. Pt does snore and feel fatigue. Pt notices a small nontender nodule left radial wrist area for several months Pt denies any stiffness, pain, size change, finger numbness or tingling WBC Pt had mildly el evated WBC in ER along with hematuria and borderlin high glucose. Pt just seen hematology and he was told he has resessive gene for polycythemia. His LFT and liver imaging are all ok abd pain1 Pt c/o acute ons et of periumbilical abdominal and right side abdominal pain x 1-2 weeks. Pt went to ER and Ct showed sequela of chronic diverticulitis and prostate enlargement. Pt did feel nauseated without vomiting last week but has not felt above for one week. Pt is on omeprazole 40 mg from ER. Pt denies any acute abdomen pain pt denies any blood in stool. Pt was referred to Dr. Fish (GI) but he was told that he needs referral from us before he can be seen by GI anxiety1 Pt has severe an xiety after his son recently pt takes valium PRN for anxiety Pt has crying spells and has hard time dealing with other people due to anxiety Pt denies any suicidal or homicidal thought Pt denies any crying spells anxiety1 Pt c/o feeling s evere anxiety for the past week. His son from MVA early this week .Pt has crying spells with severe anxiety ,Pt denies any suicidal thought. Pt denies any depression .Pt feels severe anxiety. Pt has difficulty keeping calm and perform any activity at work. back pain1 Pt has low back pain. Pt denies any loss of bowel or bladder control. Pt has DDD. Pt failed NSAID and ultram tobacco1 pt still smoking Pt denies any sob, hemoptysis or cough polycythemia1 Pt has borderlin e polycythemia. Pt smokes Pt may have sleep apnea. Pt has high ferritin. Pt states that he drinks 6-8 beers per day. Pt denies any abdominal pain Pt denies any jaundice HTN Pt has borderlin e hTN. Pt denies any chest pain or headache Pt does not want to take med mole1 Pt notices a sca bby lesion left anterior thigh for 4 weeks. Pt notices getting bigger with white scab Pt denies any pain Pt denies any bleeding. Pt notices getting bigger. GERD1 Pt has intermitt ent GERD Pt takes omeprazole only depending on food. Pt uses on average 2-3 per week. Pt denies any abdominal pain back pain1 pt has chronic l ow back pain with sciatica Pt denies any loss of bladder control P t takes norco prn for pain Pt unable to tolerate NSAID HTN Pt has persisten t mild hTn Pt denies any chest pain or headache abdominal pain1 Pt was trying to reach forward last week and he felt acute low back pain radiating to left front low pelvic area. Pt had sharp pain. Pt feels stabbing pain. Pt went to Er and he had Ct scan which showed tiny umbilical and left inguinal hernia with mild enlarged prostate and diverticulosis. Pt denies any pain anymore. Pt also has trace hydrocele both side. BPH1 Pt has mild BPH. Pt denies any urinary symptoms. Pt denies any dribbling or any trouble with urination low back pain1 Pt has chronic l ow back pain. he is back to his baseline pain now Pt c/o chronic left sciatica and left leg numbness. Pt denies any loss of bladder control. foot pain1 Pt has some foot numbness and also he has hard nodule both arch area for several years Pt denies any worsening symptoms Pt deferred podiatry referral last time. Pt stats that symptoms worse now with cold weather. Pt denies any injury chronic pain1 Pt has chronic l ow back and hip pain due to arthritis pt philip any sciatica or any worsening pain pt denies any loss of bladder control. Pt failed NSAID and ultram GERD1 Pt states that o meprazole which helps He no longer uses tums Pt wants refill pt failed zantac. HTN Pt has mild HTn today. Pt denies any chest pain or headache. chronic pain1 Pt has chronic n howard and back pain Pt denies any worsening pain, pt denies any loss or bladder control pt has ddD and arthritis on back and hip x rays. pt denies any loss of bladder control. Pt states that norco does help with his pain. HLP Pt has HLP Pt is not on any diet glucose1 Pt has high gluc ose Pt denies any polyuria polydipsia GERD1 Pt has chronic G ERD. Pt takes multiple tums per day. Pt has heartburn Pt denies any abd pain or nausea, vomiting, abdominal pain polycythemia1 Pt has polycythe óscar Pt does smoke. pt has snoring and sometimes he has difficulty with breathing at night. Pt sometimes feels fatigue in the morning. PHysical Pt needs annual physical. Pt has chronic back and neck pain. pt used to see pain management 10 years ago and he got injection back then. He had MRi of l Spine 10 years ago which showed DDD. Pt was recommended surgery but he did not go for the surgery. Pt states that he has low back and neck pain and radiating to bilateral hip. Pt has chronic bilateral hand and feet numbness. Pt states that he has arthritis also. 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 Pt states that he has chronic low back pain and he usually gets better with some OTC NSAID and heating pad but he did some lifting work about 10 days ago and he woke up with severe low back pain 10 days ago and he could not move or get out of bed. Pt went to urgent care and x ray showed moderate spondylosis. Pt was given ibuprofen and flexeril but it does not help with the pain. Pt current 02/24 neck and 01/25 low back pain Instructions Date Instruction Additional Infor dyan Weight gain advised Related to B rodolfo mass index (BMI) 23.0-23.9, adult Special diet education Related t o Body mass index (BMI) 25.0-25.9, adult Quit smoking Related to Gener alized Anxiety Disorder Special diet education Related t o Body mass index (BMI) 26.0-26.9, adult Quit smoking Related to Secon tessa polycythemia Special diet education Related t o Body mass index (BMI) 27.0-27.9, adult Stop smoking. Related to Essen tial (primary) hypertension Increase activity. Related to Es sential (primary) hypertension Stop smoking. Related to Essen tial (primary) hypertension Follow a low sodium diet. Relate d to Essential (primary) hypertension Special diet education Related t o Body mass index (BMI) 27.0-27.9, adult Elevate head of bed prior to sle ep. Related to GERD w/o esophagitis Special diet education Related t o Body mass index (BMI) 27.0-27.9, adult Avoid provocative fo ods: citrus, alcohol, coffee, chocolate, mints. Related to GERD w/o esophagitis Eat smaller meals, n o eating three hours prior to bedtime. Related to GERD w/o esophagitis Special diet education Related t o Body mass index (BMI) 27.0-27.9, adult Quit smoking Related to Hyper glycemia Special diet education Related t o Body mass index (BMI) 27.0-27.9, adult Assessments Type Assessment Date assessment Chronic pain syndrome 4 assessment Pain in left knee assessment Nevus, non-neoplastic 4 Mental Status Date Cognitive Assessment Orientation - [place] ed to time, place, person, situation.
--- OUTSIDE RECORDS SUMMARY | 2024-10-09 13:18 | XMS_ITS | Clinical Summary ---
Author Organization [facility] Address [address] [place] [address] Care Team Providers Care Storage Facility Rental Clerk Name Role Phone Mark Lang MD Primary Care Provider [phone] Source Comments [facility],non-owned Affiliates and Associated Physician Practices is amultiple site organization consisting of ambulatory clinics and hospital sitesin [place], [place], [place] and [place]. This disclosure is being madepursuant to the Care Everywhere program and may not contain all information available regarding this patient. Last updated 18.[facility] Allergies Active Allergy Reactions Criticality Noted Date Comments Bee Venom Swelling 02/08/2019 Shortness of breath and swelling after bee sting Shortness of breath and swelling after bee sting Beef Allergy Swelling 01/25/2019 Latex Rash Medium 03/06/2018 blisters blisters Medications * Be aware that medications may not be up to date on this document. Alwaysverify current medications with the patient. Medication Sig Dispensed Refills Start Date End Date Status calcium carbonate (TUMS) 500 MG chew tablet Take 1 tablet by mouth daily with food Active calcium carbonate (CALCI-CHEW) 1250 (500 Ca) MG chew tablet Take 1 tablet by mouth Active omeprazole (PRILOSEC) 20 MG capsule Take 1 capsule by mouth every 24 hours 01/25/2020 Active Active Problems Problem Noted Date Diagnosed Date Nicotine addiction 11/16/2020 Neck pain 11/16/2020 Bilateral carpal tunnel syndrome 11/16/2020 Cervical radiculopathy 11/16/2020 Social History Tobacco Use Types Packs/Day Years Used Date Smoking Tobacco: Every Day Cigarettes Smokeless Tobacco: Never Alcohol Use Standard Drinks/Week Comments Not Currently 0 (1 standard drink = 0.6 oz pur e alcohol) Sex and Gender Information Value Date Recorded Sex Assigned at Not on file Gender Identity Not on file Sexual Orientation Not on file Last Filed Vital Signs Vital Sign Reading Time Taken Comments Blood Pressure 127/82 11/16/2020 9:57 AM CDT Pulse 94 11/16/2020 9:57 AM CDT Temperature 36.4 C (97.6 F) 11/16/2020 9:57 AM CDT Respiratory Rate 18 07/20/2020 8:49 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 Oxygen Saturation 99% 11/16/2020 9:57 AM CDT Inhaled Oxygen Concentration - - Weight 78 kg (172 lb) 11/16/2020 9:57 AM CDT Height 185.4 cm (6' 1 ) 11/16/2020 9:57 AM CDT Body Mass Index 22.69 11/16/2020 9:57 AM CDT Plan of Treatment Health Maintenance Due Date Last Done Comments COLOGUARD (AGES 45-75) - COL ON CA SCREENING 1960 COLON MONITORING 1960 COLONOSCOPY - COLON CA SCREENING 1960 CT COLONOGRAPHY - COLON CA SCREENING 1960 Colorectal Cancer Screening 1960 FIT - COLON CA SCREENING 1960 FLEX SIG - COLON CA SCREENING 1960 LIPID TESTING 1960 HIV SCREENING 11/28/1975 HEPATITIS C SCREENING 11/23/1978 DTAP/TDAP/TD VACCINES (1 - Tdap) 11/28/1979 PNEUMOCOCCAL VACCINE 50+ (1 of 2 - PCV) 11/28/1979 PNEUMOCOCCAL VACCINE (1 of 2 - PCV) 11/28/1979 ZOSTER VACCINE (1 of 2) 2010 COVID-19 VACCINE ( - 2023-2 5 season) 2024 INFLUENZA VACCINE (#1) 2024 DEPRESSION SCREENING 08/18/2024 Respiratory Syncytial Virus (RSV) Vaccine Pt: or over 60 yrs (1 - 1-dose 75+ series) 11/28/2035 HEPATITIS B VACCINE Aged Out No longe r eligible based on patient's age to complete this topic HIB VACCINE Aged Out No longer eligi ble based on patient's age to complete this topic HPV VACCINE Aged Out No longer eligi ble based on patient's age to complete this topic MENINGOCOCCAL (Group B) VACCINE Aged Out No longer eligible based on patient's age to complete this topic MENINGOCOCCAL VACCINE Aged Out No aniceto bonita eligible based on patient's age to complete this topic Care Teams Storage Facility Rental Clerk Relationship Specialty Start Date End Date Mark Lang MD PCP - General 06/13/20
--- OUTSIDE RECORDS SUMMARY | 2024-10-09 13:18 | XMS_ITS | Referral Summary ---
Author Organization [facility] Address [address] [place] [address] Care Team Providers Care Kiln Packer Name Role Phone Mark Lang MD Primary Care Provider [phone] Source Comments [facility],non-owned Affiliates and Associated Physician Practices is amultiple site organization consisting of ambulatory clinics and hospital sitesin [place], [place], [place] and [place]. This disclosure is being madepursuant to the Care Everywhere program and may not contain all information available regarding this patient. Last updated 18.[facility] Allergies Active Allergy Reactions Criticality Noted Date [...] CDT Respiratory Rate 18 07/20/2020 8:49 AM INVESTIGATION DIVISION CAPTAIN Oxygen Saturation 99% 11/16/2020 9:57 AM CDT Inhaled Oxygen Concentration - - Weight 78 kg (172 lb) 11/16/2020 9:57 AM CDT Height 185.4 cm (6' 1 ) 11/16/2020 9:57 AM CDT Body Mass Index 22.69 11/16/2020 9:57 AM CDT Plan of Treatment Not on file Care Teams Kiln Packer Relationship Specialty Start Date End Date Mark Lang MD PCP - General 06/13/20
--- OUTSIDE RECORDS SUMMARY | 2024-10-09 13:18 | XMS_ITS | Patient Health Summary ---
Author Organization [facility] Address [address] [place] [address] Care Team Providers Care Mineralogy Professor Name Role Phone Mark Lang MD Primary Care Provider [phone] Note from [facility] [place],non-owned Affiliates and Associated Physician Practices is amultiple site organization consisting of ambulatory clinics and hospital sitesin [place], [place], [place] and [place]. This disclosure is being madepursuant to the Care Everywhere program and may not contain all information available regarding this patient. Last updated 18.[facility] Allergies * Bee Venom(Swelling) * Beef Allergy(Swelling) * Latex(Rash) -Medium Criticality Medications * Be aware that medications may not be up to date on this document. Alwaysverify current medications with the patient. * calcium carbonate (TUMS) 500 MG chew tablet Take 1 tablet by mouth daily with food * calcium carbonate (CALCI-CHEW) 1250 (500 Ca) MG chew tablet Take 1 tablet by mouth * omeprazole (PRILOSEC) 20 MG capsule(Started 01/25/2020) Take 1 capsule by mouth every 24 hours Active Problems Problem Noted Date Diagnosed Date [...] CDT Respiratory Rate 18 07/20/2020 8:49 AM PROMOTION MANAGER Oxygen Saturation 99% 11/16/2020 9:57 AM CDT Inhaled Oxygen Concentration - - Weight 78 kg (172 lb) 11/16/2020 9:57 AM CDT Height 185.4 cm (6' 1 ) 11/16/2020 9:57 AM CDT Body Mass Index 22.69 11/16/2020 9:57 AM CDT Procedures * DERMATOPATHOLOGY(Performed 01/01/2024) Results * DERMATOPATHOLOGY (01/01/2024 3:33 AM CDT) Case Report Dermatopathology Report Case: [id number] Authorizing Provider: Tanner Tse MD Collected: 01/01/2024 03:33 AM Ordering Location: [facility] - Received: 01/02/2024 07:35 AM DermPath Lab Pathologist: Danuta Vásquez MD Specimen: Skin, left nasal ala 4:30 PM CDT DERMATOPATHOLOGY LABORATORY Final Diagnosis Specimen A. SKIN, left nasal ala: BASAL CELL CARCINOMA, NODULAR TYPE (C44.311) 4:30 PM CDT DERMATOPATHOLOGY LABORATORY Clinical History R/o BCC. 4:30 PM CDT DERMATOPATHOLOGY LABORATORY Gross Description Specimen A: Received is one formalin filled container labeled with the patient's name and designated left nasal ala. The specimen consists of a shave biopsy measuring 6x3x2,4x2x1 mm. Jar 0. 4:30 PM CDT DERMATOPATHOLOGY LABORATORY Microscopic Description Specimen A. SKIN, left nasal ala: Within the dermis there are aggregates of basaloid cells with a high nuclear to cytoplasmic ratio and peripheral palisading. 4:30 PM CDT DERMATOPATHOLOGY LABORATORY Disclaimer An external and internal positive and negative controls are appropriate for the histochemical, immunohistochemical and immunofluorescence stain(s) in this case (if any), except where stated explicitly. The performance characteristics of the stain(s) cited in this report were developed and its performance characteristic determined by the Dermatopathology Laboratory at [facility], directed by Dr. Candy Boles. These tests need not be, and therefore are not, approved by the [place] Food and Drug Administration. The tests are used for clinical purposes. Billing Codes Specimen Charges Stain Charges 10958 1 4 4:30 PM CDT DERMATOPATHOLOGY LABORATORY Embedded Images 4 4:30 PM CDT DERMATOPATHOLOGY LABORATORY Pathology/Cytolo gy TISSUE SPECIMEN FROM SKIN / Unknown 01/01/2024 3:33 AM CDT 01/02/2024 7:35 AM CDT Tanner Tse MD LAB - PATHOLOGY/CYTO LOGY ORDERABLES DERMATOPATHOLOGY LABORATORY [facility] - Department of Dermatology [facility] Specialized Medicine [address] [place] [address], [address] [phone] Care Teams Mineralogy Professor Relationship Specialty Start Date End Date Mark Lang MD PCP - General 06/13/20
--- OUTSIDE RECORDS SUMMARY | 2024-10-09 13:18 | XMS_ITS | Encounter Summary ---
Author Organization [facility] Address [address] [place] [address] Care Team Providers Care Supervisor Transferring And Boxing Name Role Phone Mark Lang MD Primary Care Provider [phone] Encounter Details Date Type Department Care Team (Late st Contact Info) Description 01/01/2024 Lab Requisition [facility] - DermPath Lab [address] [place] [id number] Tanner Tse MD [address] [place] [address] Social History Tobacco Use Types Packs/Day Years Used Date Smoking Tobacco: Every Day Cigarettes Smokeless Tobacco: Never Alcohol Use Standard Drinks/Week Comments Not Currently 0 (1 standard drink = 0.6 oz pur e alcohol) Sex and Gender Information Value Date Recorded Sex Assigned at Not on file Gender Identity Not on file Sexual Orientation Not on file documented as of this encounter Plan of Treatment Not on file documented as of this encounter Procedures Procedure Name Priority Date/Time Associated Diagnosis Comments DERMATOPATHOLOGY Routine 01/01/2024 3:33 AM CDT documented in this encounter Results * DERMATOPATHOLOGY (01/01/2024 3:33 AM CDT) Case Report Dermatopathology Report Case: [id number] Authorizing Provider: Tanner Tse MD Collected: 01/01/2024 03:33 AM Ordering Location: [facility] Physician [facility] - Received: 01/02/2024 07:35 AM DermPath Lab [...] characteristic determined by the Dermatopathology Laboratory at [facility], directed by Dr. Candy Boles. These tests need not be, and therefore are not, approved by the [place] Food and Drug Administration. The tests are used for clinical purposes. Billing Codes Specimen Charges Stain Charges 62510 1 4:30 PM CDT DERMATOPATHOLOGY LABORATORY Embedded Images 4:30 PM CDT DERMATOPATHOLOGY LABORATORY Pathology/Cytolo gy TISSUE SPECIMEN FROM SKIN / Unknown 01/01/2024 3:33 AM CDT 01/02/2024 7:35 AM CDT Tanner Tse MD LAB - PATHOLOGY/CYTO LOGY ORDERABLES DERMATOPATHOLOGY LABORATORY [facility] - Department of Dermatology [address], [address] [phone] documented in this encounter Visit Diagnoses Not on filedocumented in this encounter Care Teams Supervisor Transferring And Boxing Relationship Specialty Start Date End Date Mark Lang MD PCP - General 06/13/20 documented as of this encounter
--- OUTSIDE RECORDS SUMMARY | 2024-10-09 13:19 | XMS_ITS | Clinical Summary ---
Author Organization [facility] [address] Address [address] [place] [address] Care Team Providers Care Bull Gang Supervisor Name Role Phone Mark Lang MD Primary Care Provider [phone] Allergies Active Allergy Reactions Criticality Noted Date Comments Latex Rash Medium 03/06/2018 blisters Venom-Honey Bee Swelling Medium 02/08/2019 Shortness of breath and swelling after bee sting Medications calcium carbonate (TUMS) 500 mg calcium (200 mg of elemental calcium) chewable tablet Take 1 tablet by mouth 3 (three) times a day with meals Active Active Problems Problem Noted Date Diagnosed Date Neck pain on left side 11/11/2021 Dysphonia 11/11/2021 Infected sebaceous cyst 03/26/2021 Right thyroid nodule 02/10/2021 Neck mass 02/10/2021 Immunizations Immunization Administration Dates Next Due Pfizer SARS-CoV-2 Monovalent Vaccination (12+ Yrs) PURPLE 01/02/2021 Surgical History Surgery Date Site/Laterality Comments ELBOW SURGERY CHOLECYSTECTOMY NECK MASS EXCISION 04/20/2021 Medical History Medical History Date Comments Allergic rhinitis Thyroid disease Family History Medical History Relation Name Comments Thyroid disease Brother Thyroid disease Mother Relation Name Status Comments Brother Mother Social History Tobacco Use Types Packs/Day Years Used Date Smoking Tobacco: Every Day Cigarettes Smokeless Tobacco: Never Personal Safety Answer Date Recorded Getting School Help Needed Not on file Sex and Gender Information Value Date Recorded Sex Assigned at Not on file Legal 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 Gender Identity Not on file Sexual Orientation Not on file Obstetrics History Last Filed Vital Signs Vital Sign Reading Time Taken Comments Blood Pressure - - Pulse - - Temperature - - Respiratory Rate 17 11/08/2021 9:11 AM CDT Oxygen Saturation - - Inhaled Oxygen Concentration - - Weight 79.4 kg (175 lb) 11/08/2021 9:11 AM CDT Height 185.4 cm (6' 1 ) 11/08/2021 9:11 AM CDT Body Mass Index 23.09 11/08/2021 9:11 AM CDT Plan of Treatment Health Maintenance Due Date Last Done Comments Colon Cancer Screening-Colonoscopy 1960 Depression Screening 1960 Hepatitis C Screening 1960 Prostate Cancer Screening-PSA 1960 DTaP/Tdap/Td Vaccine (1 - Tdap) 11/28/1971 Hepatitis B Screening 1978 Regular Well Visit/Exam 18-64 1978 Pneumococcal vaccine <65 (1 of 2 - PCV) 11/28/1979 Zoster Vaccine (1 of 2) 2010 Covid-19 Vaccine (2 - 2023- season) 2024 Influenza Vaccine (#1) 2024 Insurance [facility] PPO Care Teams Bull Gang Supervisor Relationship Specialty Start Date End Date Mark Lagn MD [address] [place] [address] PCP - General Family Medicine 01/19/21
--- OUTSIDE RECORDS SUMMARY | 2024-10-09 13:19 | XMS_ITS | Clinical Summary ---
Author Organization [facility] Address [address], [facility] [address] [place] [address] Phone Care Team Providers Care Manufacturing Process Engineer Name Role Phone Mark Lang Primary Care Provider [phone] Gallo Del Castillo MD Unavailable [phone] Allergies Active Allergy Reactions Criticality Noted Date Comments Bee Venom Swelling 02/08/2019 Shortness of breath and swelling after bee sting Beef Allergy Swelling 01/25/2019 Latex Rash 01/25/2019 blisters Medications diazePAM (VALIUM) 5 MG Tablet TK 1 T PO BID PRA. AVOID DRIVING AND OPERATE MACHINES 0 01/22/2019 Active calcium carbonate (TUMS) 500 MG Chewable Tablet Take 2 Tabs by mouth daily. Active omeprazole (PRILOSEC) 40 MG CAPSULE DELAYED RELEASE TK 1 C PO QD AC 0 04/12/2019 Active Family History Medical History Relation Name Comments Cancer Brother Seizures Brother Diabetes Maternal Grandmother Thyroid Disease Mother Relation Name Status Comments Brother Maternal Grandmother Mother Social History Tobacco Use Types Packs/Day Years Used Date Smoking Tobacco: Some Days Smokeless Tobacco: Never Alcohol Use Standard Drinks/Week Comments Never 0 (1 standard drink = 0.6 oz pur e alcohol) AUDIT-C Answer Date Recorded Frequency of Alcohol Consumption Never 01/25/2019 Average Number of Drinks Not on file 019 Frequency of Binge Drinking Not on file 01/16 PHQ-2 Answer Date Recorded PHQ-2 Score 1 06/11/2019 Sex and Gender Information Value Date Recorded Sex Assigned at Not on file Legal Sex Male 7:36 PM CDT Gender Identity Not on file Sexual Orientation Not on file Last Filed Vital Signs Vital Sign Reading Time Taken Comments Blood Pressure 124/80 06/11/2019 8:52 AM CDT Pulse 82 06/11/2019 8:52 AM CDT Temperature 36.7 C (98 F) 06/11/2019 8:52 AM CDT Respiratory Rate 16 06/11/2019 8:52 AM CDT Oxygen Saturation 98% 06/11/2019 8:52 AM CDT Inhaled Oxygen Concentration - - Weight 79 kg (174 lb 3.2 oz) 06/11/2019 8:52 AM CDT Height 185.4 cm (6' 1 ) 06/11/2019 8:52 AM CDT Body Mass Index 22.98 06/11/2019 8:52 AM CDT Plan of Treatment Health Maintenance Due Date Last Done Comments Hepatitis C Virus (HCV) Screening 1960 TdaP Immunization 1960 Colonoscopy 2005 Colorectal Cancer Screening 2005 Cologuard 2010 Immunochemical Fecal Occult Blood 2010 Pneumococcal Immunization (5 0+ years) (1 of 1 - PCV) 2010 Zoster Immunization (1 of 2) 2010 Influenza Immunization (#1) 2024 SARS-COV-2 Immunization ( season) 2024 05/30/2021, 01/02/2021 Respiratory Syncytial Virus (RSV) Immunization (Adult) (1 - 1-dose 75+ series) 11/28/2035 PSA Discussion Discontinued 06/09/2019 Hepatitis B Immunization Aged Out No longer eligible based on patient's age to complete this topic Meningococcal Immunization (ACWY) Aged Out No longer eligible based on patient's age to complete this topic Pneumococcal Immunization Combined Aged Out No longer eligible based on patient's age to complete this topic Rotavirus Immunization Aged Out No lo nger eligible based on patient's age to complete this topic Procedures Procedure Name Priority Date/Time Associated Diagnosis Comments PSA DIAGNOSTIC,TOTAL Routine 06/09/2019 10:50 AM CDT Benign prostatic hyperplasia, unspecified whether lower urinary tract symptoms present from Last 3 Months or Most Recently Relevant to Health Maintenance Results * PSA DIAGNOSTIC,TOTAL (06/09/2019 10:50 AM CDT) PSA 0.86 0.00 - 4.00 ng/mL [facility] Comment: Maude Paramagnetic Particle Chemiluminescent Immunoassay Method Blood specimen (specimen) 06/09/2019 10:50 AM CDT Mark Lang CHEMISTRY ORDERABLES Final Resul t [facility] [address] [place] [address], from Last 3 Months or Most Recently Relevant to Health Maintenance Insurance [facility] Care Teams Manufacturing Process Engineer Relationship Specialty Start Date End Date LangMark [address] [place] [address] PCP - General Family Medicine 01/01/19 Gallo Del Castillo MD [address] [place] [address] Consulting Physician Oncology 01/01/19
--- OUTSIDE RECORDS SUMMARY | 2024-10-09 13:19 | XMS_ITS | Continuity of Care Document ---
Author Organization [facility] Address [address] [place] [address] Phone Care Team Providers Care E Learning Manager Name Role Phone Jakub PT,MPT,ATC, Keven Unavailable Unavai lable Procedures Procedure Date Therapeutic Exercise Neuromuscular Re-Ed Therapeutic Activities Neuromuscular Re-Ed Therapeutic Exercise PT Evaluation Moderate Complexity Therapeutic Exercise Advance Directives Directive Yes / No Effective Date File Name No Information Encounters Encounter Description Practice Location Reason(s) For Visit Diagnoses Date Provider Providers Copied on Encounter [facility], [place], [place], [address], tel:[phone] [place] No Information 0 Jakub Baca. , [place], [place]. [facility], [place], [place], [address], tel:[phone] [place] No Information 0 Jakub Baca. , [place], [place]. Referring Provider: Mark Lang, [address], [place], [address]. tel:[phone] [facility], [place], [place], [address], tel:[phone] [place] No Information 0 Jakub Baca. , [place], [place]. Referring Provider: Mark Lang [address], [place], [address]. tel:[phone] [facility], [place], [place], [address], [place] tel:[phone] [place] No Information 0 Dada Middleton. . Referring Provider: Mark Lang, [address], [place], [address]. tel:[phone] Family History Family Member Type Diagnosis Age At Onset No Information Payers Payer name Insurance type Covered democrat ID Ros tovar(s) [facility] [id number] Social History Type Description Quantity Date Captured Comments Sex Male Smoking Status No Information Chief Complaint And Reason For Visit No Information Reason For Referral Reason For Referral No Information History Of Present Illness Encounter Date Complaint History Of Prese nt Illness No Information Functional Status Date Functional Assessmen t No Information Instructions Date Instruction Additional Infor mation No Information Assessments Type Assessment Date No Information Patient Care Teams Name Effective Dates (start - stop) Status Members No Information
--- OUTSIDE RECORDS SUMMARY | 2024-10-09 13:19 | XMS_ITS | Clinical Summary ---
Author Organization [facility] Address [facility] [place] [address] Care Team Providers Care Household Assistant Name Role Phone Mark Lang MD Primary Care Provider [phone] Allergies Active Allergy Reactions Criticality Noted Date Comments Bee Venom Swelling 02/08/2019 Shortness of breath and swelling after bee sting Latex Rash Low 01/25/2019 blisters Medications calcium carbonate 500 MG chewable tablet Chew 1 tablet by mouth daily as needed. Active cyclobenzaprine 10 MG tablet Take 10 mg by mouth 2 (two) times daily as needed. Usually only take 5 mg if needed 03/05/2021 Active traMADol 50 MG tabletIndicatio ns:Acute Pain < 3 Day Supply Take 1 tablet (50 mg total) by mouth every 6 (six) hours as needed for Pain. Indications: Acute Pain < 3 Day Supply 12 tablet 04/20/2021 Active Active Problems Problem Noted Date Diagnosed Date Neck mass 04/20/2021 Family History Medical History Relation Comments Cancer Brother neck Heart Disease Father Cancer Maternal Grandmother Diabetes Maternal Grandmother Heart Disease Maternal Grandmother pacemaker Cancer Mother thyroid Thyroid Mother Relation Status Comments Brother Father Maternal Grandmother (Age 90s) Mother Alive Social History Tobacco Use Types Packs/Day Years Used Date Smoking Tobacco: Every Day Cigarettes 1 30 Smokeless Tobacco: Never Alcohol Use Standard Drinks/Week Comments Never 0 (1 standard drink = 0.6 oz pur e alcohol) none in 2-3 years AUDIT-C Answer Date Recorded Q1: How often do you have a drink containing alc ohol? 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 Gender Identity Not on file Sexual Orientation Not on file Last Filed Vital Signs Vital Sign Reading Time Taken Comments Blood Pressure 118/70 04/20/2021 9:31 AM CDT Pulse 59 04/20/2021 9:31 AM CDT Temperature 36.1 C (97 F) 04/20/2021 9:31 AM CDT Respiratory Rate 18 04/20/2021 9:31 AM CDT Oxygen Saturation 99% 04/20/2021 9:31 AM CDT Inhaled Oxygen Concentration - - Weight 76.1 kg (167 lb 12.3 oz) 04/20/2021 6:20 AM CDT Height 185.4 cm (6' 1 ) 04/20/2021 6:20 AM CDT Body Mass Index 22.13 04/20/2021 6:20 AM CDT Plan of Treatment Health Maintenance Due Date Last Done Comments Colorectal Cancer Screening Colonoscopy (10 Years) 1960 Annual Physical 11/28/1963 Pneumococcal Vaccine: Pediat rics (0 to 5 Years) and At-Risk Patients (6 to 64 Years) (1 of 2 - PCV) 1966 Hepatitis C 1978 DTaP, Tdap and Td Vaccines ( 1 - Tdap) 11/28/1979 Zoster Vaccines (1 of 2) 2010 COVID-19 Vaccine (2 - 2023-2 5 season) 2024 01/02/2021 Influenza Adult (#1) 2024 RSV Immunization or 60+ Years (1 - 1-dose 75+ series) 11/28/2035 Meningococcal B Vaccine Aged Out No l onger eligible based on patient's age to complete this topic Meningococcal Vaccine Aged Out No aniceto bonita eligible based on patient's age to complete this topic RSV Immunizations Under 20 Months Aged Out No longer eligible based on patient's age to complete this topic Insurance Care Teams Household Assistant Relationship Specialty Start Date End Date Mark Lang MD PCP - General FAMILY PRACTICE 11/15/20
--- OUTSIDE RECORDS SUMMARY | 2024-10-09 13:19 | XMS_ITS | Referral Summary ---
Author Organization [facility] [address] Address [address] [place] [address] Care Team Providers Care Lab Engineer Name Role Phone Mark Lang MD Primary Care Provider [phone] Allergies Active Allergy Reactions Criticality Noted Date [...] SARS-CoV-2 Monovalent Vaccination (12+ Yrs) PURPLE 01/02/2021 Social History Tobacco Use Types Packs/Day Years Used Date Smoking Tobacco: Every Day Cigarettes Smokeless Tobacco: Never Personal Safety Answer Date Recorded Getting School Help Needed Not on file Sex and Gender Information Value Date Recorded Sex Assigned at Not on file 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
--- OUTSIDE RECORDS SUMMARY | 2024-10-09 13:19 | XMS_ITS | Encounter Summary ---
Author Organization [facility] Address [address] [place] [address] Care Team Providers Care Resilient Tile Installer Name Role Phone Mark Lang MD Primary Care Provider [phone] Encounter Details Date Type Department Care Team (Late st Contact Info) Description 04/13/2021 Prep for Procedure [facility]-Ad[facility] [place] [address] Reginald Elizondo MD [address] [place] [address] Social History Tobacco Use Types Packs/Day Years [...] on file Legal Sex Male 9:14 AM YOUTH COORDINATOR Gender Identity Not on file Sexual Orientation Not on file COVID-19 Exposure Response Date Recorded In the last month, have you been in contact with someone who was confirmed or suspected to have Coronavirus / COVID-19? No / Unsure 04/13/2021 4:38 PM CDT documented as of this encounter Plan of Treatment Not on file documented as of this encounter Results * CORONAVIRUS (COVID 19) (04/17/2021 9:50 AM CDT) SPEC DESCRIPTION NASAL 04/17/20 12:21 PM CDT [facility] CORONAVIRUS SARS COV 2 PCR (RESP) NEGATIVE NEGATIVE 04/17/2021 9:19 PM CDT [facility] Comment: THE SARS-CoV-2 TEST HAS BEEN AUTHORIZED BY THE FDA UNDER AN EUA FOR USE BY AUTHORIZED LABORATORIES. PERFORMED BY NUCLEIC ACID AMPLIFICATION PCR FIRST TEST NO 04/17/2021 12:21 PM CDT [facility] EMPLOYED IN HEALTHCARE NO 04/17/2021 12:21 PM CDT [facility] SYMPTOMATIC DEFINED BY CDC NO 04/17/2021 12:21 PM CDT [facility] HOSPITALIZATION STATUS NO 04/17/2021 12:21 PM CDT [facility] PATIENT IN ICU NO 04/17/2021 12:21 PM CDT [facility] RESIDENT OF [facility] NO 04/17/2021 12:21 PM CDT [facility] NASAL STRUCTURE / Unknown 04/17/2021 9:50 AM CDT us Reginald Elizondo MD MICROBIOLOGY - GENERAL ORDERABLE S Final Result [facility] [address] [place] [address], [place] [phone] [facility] [address] [place] [address], [place] [phone] documented in this encounter Visit Diagnoses Diagnosis Preop examination- Primary Preoperative examination, unspecified documented in this encounter Additional Health Concerns Infection Onset Date Last Indicated Resolved Time COVID-19 Rule Out 04/17/2021 04/17/2021 04/17/2021 9:19 PM CDT documented as of this encounter Care Teams Resilient Tile Installer Relationship Specialty Start Date End Date Mark Lang MD PCP - General FAMILY PRACTICE 11/15/20 documented as of this encounter
--- NOTE | 2024-10-09 14:23 | ED_ITS ---
HPI - Abdominal Pain General Chief Complaint: Abdominal Pain Stated Complaint: R SIDED ABD PAIN/SWELLING Time Seen by Provider: 10/09/24 14:13 Source: patient Mode of arrival: ambulatory Limitations: no limitations History of Present Illness HPI narrative: Patient is a 63-year-old male, with past medical history of cholecystectomy, who presents the ED with report of right-sided abdominal pain. Patient reports having pain for the last 1 week, present throughout his right side abdomen. Worse with heavy lifting and movement. He does note that he frequently lifts heavy at work. Has not taken anything for pain. No alleviating factors. Also reports abdominal bloating, nausea, difficulty eating due to nausea, watery stools, pain with urination. Denies rectal bleeding, melena, hematuria, fevers, vomiting. No history of similar pain. Related Data Allergies Allergy/AdvReac Type Severity Reaction Status Date / Time latex Allergy Intermediate Rash Verified 10/09/24 14:40 Review of Systems 2 Review of Systems: All systems reviewed & are unremarkable except as noted in HPI. All systems reviewed & are unremarkable except as noted in HPI and below PMFSH Past Medical History Medical History Arthritis of ankle, left, degenerative Arthritis History of skin cancer Weight loss, unintentional Acute lateral meniscus tear of left knee Acute medial meniscus tear of left knee Colon polyp IBS (irritable bowel syndrome) Ulnar club hand Carpal tunnel syndrome Surgical History Surgical History Hx of cholecystectomy Family History Family History Unknown Arthritis Cancer Diabetes mellitus Social History Social History Smoking packs per day: 1 Smoking cigarettes per day: 20.0 Years smoked: 40 Smoking pack-years: 40.00 Smoking status: Current every day smoker Tobacco type: cigarettes Alcohol intake: never Substance use: current Substance use type: marijuana Other substance usage details: OCC. Living arrangements: with family Occupation/Education: occupation Additional occupation/education comments: [employer] Gender identity (if verbalized by the patient): Male Spiritual care concerns: No Exam 2 Narrative: GENERAL: Well appearing, well-nourished, non-toxic, in no acute distress. HEAD: Normocephalic, atraumatic. RESPIRATORY: Airway patent, respirations nonlabored. Clear to auscultation bilaterally, no rales, rhonchi, wheezing. CARDIOVASCULAR: Regular rate and rhythm without murmurs, rubs, or gallops. ABDOMINAL: Soft, focal TTP in R mid to upper abdomen extending laterally along anterolateral inferior rib cage, no rebound, nondistended. Normoactive BS. MUSCULOSKELETAL: Moves all extremities. No gross deformities. SKIN: Warm, dry, normal color. NEURO: A&O X3. Speech clear. PSYCHIATRIC: Appropriate mood and affect. Normal interaction. Course Vital Signs Vital signs: Vital Signs Temperature 97.6 F 10/09/24 13:16 Pulse Rate 86 10/09/24 13:16 Respiratory Rate 16 10/09/24 13:16 Blood Pressure 137/87 10/09/24 13:16 Pulse Oximetry 100 10/09/24 13:16 Oxygen Delivery Room Air 10/09/24 13:16 Temperature 97.6 F 10/09/24 13:16 Pulse Rate 86 10/09/24 14:41 Respiratory Rate 18 10/09/24 14:41 Blood Pressure 108/84 10/09/24 14:41 Pulse Oximetry 99 10/09/24 14:41 Oxygen Delivery Room Air 10/09/24 13:16 MDM - Abdominal Pain MDM Narrative Medical decision making narrative: Patient presented to ED with 1 week hx of R sided abdominal pain. Associated with intermittent nausea, diarrhea, dysuria. VSS upon arrival. Patient in no acute distress but with focal TTP in R mid to upper abdomen. Laboratory studies are completely normal. No leukocytosis. Stable electrolytes, kidney function. Normal LFTs and lipase. UA clear. CT scan of abd/pelvis obtained and showing hiatal hernia, chronic pericardial effusion, no other acute abnormalities. Discussed lab and imaging findings, overall reassuring workup with patient. He is feeling improved with supportive therapy. Given that he has such focal tenderness throughout his right-sided abdominal wall, worse with movement/heavy lifting, and non revealing workup today, feel pain is most likely musculoskeletal. Recommended patient continue anti-inflammatories, will prescribe a short course of muscle relaxers and lidocaine patches for home use. I have very low suspicion of pain being related to cardiac etiology. Again patient is very point focally tender along right abdominal wall. Denying chest pain or shortness breath. No respiratory symptoms. I did discuss hiatal hernia and management of such although I do not believe this is causing patient's acute pain either. Will prescribe omeprazole and Zofran for home use as needed. Recommended that patient have close follow-up with his PCP for further evaluation. Given strict return precautions. He agrees with plan feels comfortable discharge home. Discharged in stable condition. Medical Records Attestation: I reviewed the patient's medical records. Lab Data Attestation: I reviewed the patient's lab results. 10/09/24 14:43 10/09/24 14:43 Labs: Lab Results 10/09/24 Range/Units 14:43 WBC 6.2 (4.5-10.0) K/mm3 RBC 4.96 (4.6-6.20) M/mm3 Hgb 15.9 (14.0-18.0) g/dL Hct 45.9 (42.0-52.0) % MCV 92.5 (80-100) fl MCH 32.1 (26-34) pg MCHC 34.6 (32-36) g/dl RDW 12.6 (11.5-14.5) % Plt Count 224 (150-375) k/mm3 MPV 9.2 (7.4-10.4) fl Immature Gran % (Auto) 0.5 (0-0.5) % Neut % (Auto) 62.2 (45.5-73.1) % Lymph % (Auto) 27.9 (18.3-44.2) % Garfield % (Auto) 7.6 (2.6-8.5) % Eos % (Auto) 1.3 (0-4.4) % Baso % (Auto) 0.5 (0.2-1.2) % Lymph # (Auto) 1.73 (0.9-3.2) K/mm3 Garfield # (Auto) 0.5 (0.1-0.6) K/mm3 Eos # (Auto) 0.1 (0-0.3) K/mm3 Baso # (Auto) 0.0 (0.0-0.1) K/mm3 Abs Immat Gran (auto) 0.03 (0.00-0.031) K/mm3 Absolute Neuts (auto) 3.9 (1.3-6.7) K/mm3 Absolute Nucleated RBC 0.000 (0.0-0.012) K/mm3 Nucleated RBC % 0.0 (0.0-0.2) % Sodium 140 (137-145) mmol/L Potassium 4.1 (3.4-5.0) mmol/L Chloride 104 (98-107) mmol/L Carbon Dioxide 26 (22-30) mmol/L Anion Gap 10 (4-12) mmol/L BUN 11 (9-20) mg/dL Creatinine 0.98 (0.7-1.3) mg/dL Estim Creat Clear Calc 73 ml/min Estimated GFR > 60 (59 - ) Glucose 90 (65-110) mg/dL Calcium 9.4 (8.4-10.2) mg/dL Total Bilirubin 0.7 (0.2-1.3) mg/dL AST 23 (17-59) U/L ALT 24 (6-50) U/L Alkaline Phosphatase 116 (38-126) U/L Total Protein 8.0 (6.3-8.2) g/dL Albumin 4.6 (3.5-5.1) g/dL Lipase 213 (23-300) U/L Urine Color Yellow (Yellow) Urine Appearance Clear (Clear) Urine pH 5.5 (5.0-9.0) Ur Specific Ewen 1.006 (1.001-1.035) Urine Protein Negative (Negative) mg/dL Urine Glucose (UA) Negative (Negative) mg/dL Urine Ketones Negative (Negative) mg/dL Ur Blood (Man) Negative (Negative) Urine Nitrate Negative (Negative) Urine Bilirubin Negative (Negative) Urine Urobilinogen 0.2 (<2.0) mg/dL Leukocyte Esterase Rfl Negative (Negative) TORITO/UL Imaging Data Attestation: I personally reviewed and interpreted this imaging study as follows: Radiologist's impression: ITS Impressions Abdomen/Pelvis CT 10/09/24 15:24 IMPRESSION: 1. Small sliding hiatal hernia. 2. Chronic small pericardial effusion. Discharge Plan Discharge Clinical Impression: Right sided abdominal pain, Hiatal hernia Patient Disposition: Home, Self-Care Condition: Stable Instructions: Antibiotic Form, Hiatal Hernia (ED), Abdominal Pain (ED), Musculoskeletal Pain (ED) Additional Instructions: Your workup here was reassuring. Your pain may be related to the muscles of your abdominal wall. Recommend Tylenol and ibuprofen as needed for pain. You may use lidocaine patches to area of pain. Take muscle relaxers as needed and prescribed. Recommend taking these at night as they may cause sedation. Do not drive, operate heavy machinery, drink alcohol while on muscle relaxers as this may cause further sedation. Your imaging did show a small hiatal hernia. Recommend taking omeprazole daily for acid reflux suppression. Utilize Zofran as needed for nausea. Recommend follow-up with your primary care doctor for further evaluation and to ensure improvement of symptoms. Return to the ED if you experience worsening or severe pain, unable to keep down food or drink, chest pain, difficulty breathing, numbness, persistent fevers, or any other symptoms of concern. Patient Language: Armenian Prescriptions: New omeprazole 10 mg capsule,delayed release(DR/EC) 10 mg PO DAILY Qty: 30 0RF lidocaine 5 % adhesive patch,medicated 1 patch topical DAILY Qty: 15 0RF Rx Instructions: leave on most painful area for up to 12 hrs ondansetron 4 mg tablet,disintegrating 4 mg PO Q8H PRN (Reason: nausea and vomiting) Qty: 15 0RF cyclobenzaprine 5 mg tablet 5 mg PO TID PRN (Reason: muscle spasm) Qty: 6 0RF No Action hydrocodone-acetaminophen 5-325 mg tablet 1 tablet PO Q6H PRN (Reason: pain) Qty: 20 0RF Follow-up/Referrals: Mark Lang MD [Primary Care Provider] - Time of Disposition: 16:05
--- OUTSIDE RECORDS SUMMARY | 2024-10-09 14:33 | XMS_ITS | Encounter Summary ---
Author Organization [facility] Address [address] [place] [address] Care Team Providers Care Senior Construction Project Manager Name Role Phone Mark Lang MD Primary Care Provider [phone] Encounter Details Date Type Department Care Team (Late st Contact Info) Description 01/01/2024 Lab Requisition [facility] - DermPath Lab [address] [place] [id number] Tanner Tse MD [address] [place] [address] Social History Tobacco Use Types [...] AM CDT) Case Report Dermatopathology Report Case: [id number] Authorizing Provider: Tanner Tse MD Collected: 01/01/2024 03:33 AM Ordering Location: [facility] Physician [facility] - Received: 01/02/2024 07:35 AM DermPath Lab [...] characteristic determined by the Dermatopathology Laboratory at [facility], directed by Dr. Candy Boles. These tests need not be, and therefore are not, approved by the [place] Food and Drug Administration. The tests are used for clinical purposes. Billing Codes Specimen Charges Stain Charges 81385 1 4:30 PM CDT DERMATOPATHOLOGY LABORATORY Embedded Images 4:30 PM CDT DERMATOPATHOLOGY LABORATORY Pathology/Cytolo gy TISSUE SPECIMEN FROM SKIN / Unknown 01/01/2024 3:33 AM CDT 01/02/2024 7:35 AM CDT Tanner Tse MD LAB - PATHOLOGY/CYTO LOGY ORDERABLES DERMATOPATHOLOGY LABORATORY [facility] - Department of Dermatology [address], [address] [phone] documented in this encounter Visit Diagnoses Not on filedocumented in this encounter Care Teams Senior Construction Project Manager Relationship Specialty Start Date End Date Mark Lang MD PCP - General 06/13/20 documented as of this encounter
--- OUTSIDE RECORDS SUMMARY | 2024-10-09 14:33 | XMS_ITS | Continuity of Care Document ---
Author Organization [facility] Address [address] [place] [address] Phone Care Team Providers Care Hand Polisher Name Role Phone Jakub PT,MPT,ATC, Keven Unavailable Unavai lable Procedures Procedure Date Therapeutic Exercise Neuromuscular Re-Ed Therapeutic Activities Neuromuscular Re-Ed Therapeutic Exercise PT Evaluation Moderate Complexity Therapeutic Exercise Advance Directives Directive Yes / No Effective Date File Name No Information Encounters Encounter Description Practice Location Reason(s) For Visit Diagnoses Date Provider Providers Copied on Encounter [facility], [place], [place], [address], tel:[phone] [place] No Information 0 Jakub Baca. , [place], [place]. [facility], [place], [place], [address], tel:[phone] [place] No Information 0 Jakub Baca. , [place], [place]. Referring Provider: aMrk Lang, [address], [place], [address]. tel:[phone] [facility], [place], [place], [address], tel:[phone] [place] No Information 0 Jakub Baca. , [place], [place]. Referring Provider: Mark Lang [address], [place], [address]. tel:[phone] [facility], [place], [place], [address], [place] tel:[phone] [place] No Information 0 Dada Middleton. . Referring Provider: Mark Lang, [address] [facility] [address], [place], [address]. tel:[phone] Family History Family Member Type Diagnosis Age At Onset No Information Payers Payer name Insurance type Covered alliance party ID Ros tovar(s) [facility] [id number] Social History Type Description Quantity Date Captured [...]
--- OUTSIDE RECORDS SUMMARY | 2024-10-09 14:33 | XMS_ITS | Encounter Summary ---
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 PERFORMED BY NUCLEIC ACID AMPLIFICATION PCR FIRST TEST NO 04/17/2021 12:21 PM CDT [facility] EMPLOYED IN HEALTHCARE NO 04/17/2021 12:21 PM CDT [facility] SYMPTOMATIC DEFINED BY CDC NO 04/17/2021 12:21 PM CDT [facility] HOSPITALIZATION STATUS NO 04/17/2021 12:21 PM CDT [facility] PATIENT IN ICU NO 04/17/2021 12:21 PM CDT [facility] RESIDENT OF [facility] NO 04/17/2021 12:21 PM CDT [facility] NASAL STRUCTURE / Unknown 04/17/2021 9:50 AM CDT us Reginald Elizondo MD MICROBIOLOGY - GENERAL ORDERABLE S Final Result [facility] [address] [place] [address], [place] [phone] [facility] [address] [place] [address], [place] [phone] documented in this encounter Visit Diagnoses Diagnosis Preop examination- Primary Preoperative examination, unspecified documented in this encounter Additional Health Concerns Infection Onset Date Last Indicated Resolved Time COVID-19 Rule Out 04/17/2021 04/17/2021 04/17/2021 9:19 PM CDT documented as of this encounter Care Teams Public Health Veterinarian Relationship Specialty Start Date End Date Mark Lang MD PCP - General FAMILY PRACTICE 11/15/20 documented as of this encounter
--- OUTSIDE RECORDS SUMMARY | 2024-10-09 14:33 | XMS_ITS | Clinical Summary ---
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
--- OUTSIDE RECORDS SUMMARY | 2024-10-09 14:33 | XMS_ITS | Referral Summary ---
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
--- OUTSIDE RECORDS SUMMARY | 2024-10-09 14:33 | XMS_ITS | Continuity of Care Document ---
Author Organization [facility] Address [address] [facility] [place] [address] Phone Care Team Providers Care Whizzer Name Role Phone Mark Lang MD Unavailable Unavailable Allergies, Adverse Reactions, Alerts Substance Reaction Status Criticality latex Active No Information Medications Medication Instructions Dosage Effective Dates (start - stop) Status Comments hydrocodone 7.5 mg-acetaminophen 325 mg tablet take 1 tablet by oral route every 6 hours as needed for pain as needed 1 tablet - Active PRN for pain, avoid driving or operate machines meloxicam 15 mg tablet take 1 tablet by oral route every day 15 MG - Active Procedures Procedure Date OFFICE/OUTPATIENT VISIT, EST OFFICE/OUTPATIENT [...] Providers Copied on Encounter OFFICE/OUTPA TIENT VISIT, [facility], [address], [place], [place], [address], [place] tel:[phone] [facility] pain (chief complaint) basal cell (chief complaint) knee pain1 (chief complaint) Chronic pain syndromePain in left kneeNevus, non-neoplastic 4 Rickey Flores. [address], [place], [place], [address] , [place]. tel:[phone] Referring Provider: Zachary Chavarria [address], [place], [place], [address]. tel:[phone] OFFICE/OUTPA TIENT VISIT, [facility], [address], [place], [place], [address], [place] tel:[phone] [facility] anxiety1 (chief complaint) colon polyp1 (chief complaint) pain (chief complaint) nevus1 (chief complaint) Polyp of colonGeneralized Anxiety DisorderNevus, non-neoplasticChron ic pain syndrome 4 Rickey Flores. [address], [place], [place], [address] , [place]. tel:[phone] Referring Provider: Zachary Chav[address], [place], [place], [address]. tel:[phone] OFFICE/OUTPA TIENT VISIT, [facility], [address], [place], [place], [address], [place] tel:[phone] [facility] anxietty1 (chief complaint) thyroid nodule1 (chief complaint) colon polyp1 (chief complaint) pain (chief complaint) Polyp of colonThyroid noduleChronic pain syndromeGeneralized Anxiety Disorder 0 4 Rickey Muñoz [address], [place], [place], [address] , [place]. tel:[phone] Referring Provider: Zachary Chavarria [address], [place], [place], [address]. tel:[phone] OFFICE/OUTPA TIENT VISIT, EST [facility], [address], [place], [place], [address], [place] tel:[phone] [facility] glucose1 (chief complaint) thyroid nodule1 (chief complaint) polyp1 (chief complaint) anxiety1 (chief complaint) Chronic pain syndromeGeneralized Anxiety DisorderPolyp of colonThyroid noduleHyperglycemia 3 Rickey Muñoz [address], [place], [place], [address] , [place]. tel:[phone] Referring Provider: Zachary Chavarria [address], [place], [place], [address]. tel:[phone] PREV VISIT, EST, AGE 40-64 [facility], [address] [place], [address], [place] tel:[phone] [facility] physical (chief complaint) Encounter for general adult medical exam w abnormal findingsAbnormal weight lossPolyp of colonChronic pain syndromeGeneralized Anxiety Disorder 3 Rickey Muñoz [address], [place], [place], [address] , [place]. tel:[phone] Referring Provider: Zachary Chavarria [address], [place], [place], [address]. tel:[phone] PREV VISIT, EST, AGE 40-64 [facility], [address], [place], [place], [address], [place] tel:[phone] [facility] physical (chief complaint) Encounter for general adult medical exam w abnormal findingsBPH w/o LUTSThyroid noduleGERD w/o esophagitisDisorder of iron metabolism, unspecifiedPain in left kneePolyp of colon 2 Rickey Flores. [address], [place], [place], [address] , [place]. tel:[phone] Referring Provider: Zachary Chavarria [address], [place], [place], [address]. tel:[phone] OFFICE/OUTPA TIENT VISIT, [facility], [address], [place], [place], [address], [place] tel:[phone] [facility] GERD1 (chief complaint) BPH1 (chief complaint) thyroid nodule1 (chief complaint) neck swelling1 (chief complaint) tobacco1 (chief complaint) BPH w/o LUTSIrritable bowel syndromeTobacco useThyroid noduleSebaceous cyst 1 Rickey Muñoz [address], [place], [place], [address] , [place]. tel:[phone] Referring Provider: Zachary Chavarria [address], [place], [place], [address]. tel:[phone] OFFICE/OUTPA TIENT VISIT, [facility], [address] [place], [address], [place] tel:[phone] [facility] pain (chief complaint) abd pain1 (chief complaint) BPH1 (chief complaint) GERD w/o esophagitisBPH w/o LUTSOther spondylosis, cervical regionIrritable bowel syndrome 1 Rickey Muñoz [address], [place], [place], [address] , [place]. tel:[phone] Referring Provider: Zachary Chavarria [address], [place], [place], [address]. tel:[phone] OFFICE/OUTPA TIENT VISIT, [facility], [address], [place], [place], [address], [place] tel:[phone] [facility] tobacco1 (chief complaint) neck pain (chief complaint) GERD1 (chief complaint) weigh tloss (chief complaint) Other spondylosis, cervical regionGERD w/o esophagitisAbnormal weight lossTobacco use 0 Rickey Muñoz [address], [place], [place], [address] , [place]. tel:[phone] Referring Provider: Zachary Chavarria [address], [place], [place], [address]. tel:[phone] OFFICE/OUTPA TIENT VISIT, [facility], [address], [place], [place], [address], [place] tel:[phone] [facility] neck pain1 (chief complaint) tobacco (chief complaint) colon polyp1 (chief complaint) Other spondylosis, cervical regionRadiculopathy , cervical regionTobacco usePolyp of colon 0 Rickey Muñoz [address], [place], [place], [address] , [place]. [phone] Referring Provider: Zachary Chavarria [address], [place], [place], [address]. tel:[phone] OFFICE/OUTPA TIENT VISIT, [facility], [address], [place], [place], [address], [place] tel:[phone] [facility] neck pain1 (chief complaint) LDCT (chief complaint) ferritin1 (chief complaint) Chronic pain syndromeDisorder of iron metabolism, unspecifiedTobacco use Apr- 0 Ric[address] Sh[address], [place], [place], [address] , [place]. [phone] Referring Provider: Zachary Chavarria [address], [place], [place], [address]. tel:[phone] OFFICE/OUTPA TIENT VISIT, [facility], [address], [place], [place], [address], [place] tel:[phone] [facility] neck pain1 (chief complaint) Other spondylosis, cervical regionRadiculopathy , cervical region Aug- 0 Rickey Muñoz [address], [place], [place], [address] , [place]. tel:[phone] Referring Provider: Mark Lang [address], [place], [place], [address]. tel:[phone] OFFICE/OUTPA TIENT VISIT, [facility], [address], [place], [place], [address], [place] tel:[phone] [facility] pain1 (chief complaint) GERD1 (chief complaint) GERD w/o esophagitisOther spondylosis, cervical region 0 Rickey Flores. [address], [place], [place], [address] , [place]. [phone] Referring Provider: Mark Lang, [address], [place], [place], [address]. tel:[phone] OFFICE/OUTPA TIENT VISIT, [facility], [address], [place], [place], [address], [place] tel:[phone] [facility] BPH1 (chief complaint) ferritin1 (chief complaint) neck pain1 (chief complaint) GERD1 (chief complaint) anxiety1 (chief complaint) HematuriaGERD w/o esophagitisDisorder of iron metabolism, unspecifiedOther spondylosis, cervical regionTobacco useGeneralized Anxiety Disorder 0 Rickey Flores. [address], [place], [place], [address] , [place]. [phone] Referring Provider: Zachary Chavarria [address], [place], [place], [address]. tel:[phone] OFFICE/OUTPA TIENT VISIT, [facility], [address], [place], [place], [address], [place] tel:[phone] [facility] blood in urine1 (chief complaint) weight loss1 (chief complaint) ferritin1 (chief complaint) neck pain1 (chief complaint) anxiety1 (chief complaint) HematuriaBPH w/o LUTSDisorder of iron metabolism, unspecifiedCervical giaSebaceous cystGeneralized Anxiety Disorder 0 Rickey Flores. [address], [place], [place], [address] , [place]. tel:[phone] Referring Provider: Zachary Chavar[address], [place], [place], [address]. tel:[phone] OFFICE/OUTPA TIENT VISIT, EST [facility], [address], [place], [place], [address], [place] tel:[phone] [facility] anxiety1 (chief complaint) ferritin (chief complaint) mcv (chief complaint) Disorder of iron metabolism, unspecifiedOther specified disease of bloodGeneralized Anxiety DisorderPolyp of colon 9 Rickey Flores. [address], [place], [place], [address] , [place]. tel:[phone] Referring Provider: Zachary Chavarria [facility] [address], [place], [place], [address]. tel:[phone] PREV VISIT, EST, AGE 40-64 [facility], [address], [place], [place], [address], [place] tel:[phone] [facility] Physical (chief complaint) Encntr for general adult medical exam w/o abnormal findings 9 Rickey Flores. [address], [place], [place], [address] , [place]. tel:[phone] Referring Provider: Zachary Chavarria [facility] [address], [place], [place], [address]. tel:[phone] OFFICE/OUTPA TIENT VISIT, EST [facility], [address], [place], [place], [address], [place] tel:[phone] [facility] abd pain1 (chief complaint) WBC (chief complaint) anxiety1 (chief complaint) Secondary polycythemiaAbdomin al painGeneralized Anxiety DisorderLeukocytosi sHematuriaHyperglyc emiaBPH w/o LUTS 9 Rickey Sh[address], [place], [place], [address] , [place]. tel:[phone] Referring Provider: Zachary Chavarria [address], [place], [place], [address]. tel:[phone] OFFICE/OUTPA TIENT VISIT, [facility], [address], [place], [place], [address], [place] tel:[phone] [facility] anxiety1 (chief complaint) Generalized Anxiety DisorderAdjustment disorder w/ depressed mood 9 Rickey Flores. [address], [place], [place], [address] , [place]. [phone] Referring Provider: Zachary Chavarria [address], [place], [place], [address]. tel:[phone] OFFICE/OUTPA TIENT VISIT, [facility], [address], [place], [place], [address], [place] tel:[phone] [facility] polycythem ia1 (chief complaint) tobacco1 (chief complaint) back pain1 (chief complaint) Secondary polycythemiaChronic pain syndromeAlcohol dependence, uncomplicatedTobacc o use 9 Rickey Flores. [address], [place], [place], [address] , [place]. [phone] Referring Provider: Zachary Chavarria [address], [place], [place], [address]. tel:[phone] OFFICE/OUTPA TIENT VISIT, [facility], [address], [place], [place], [address], [place] tel:[phone] [facility] HTN (chief complaint) mole1 (chief complaint) GERD1 (chief complaint) back pain1 (chief complaint) Essential (primary) hypertensionChronic pain syndromeGERD w/o esophagitisNevus, non-neoplasticTobac co useSecondary polycythemia 9 Rickey Flores. [address], [place], [place], [address] , [place]. [phone] Referring Provider: Zachary Chavarria [address], [place], [place], [address]. tel:[phone] OFFICE/OUTPA TIENT VISIT, [facility], [address], [place], [place], [address], [place] tel:[phone] [facility] abdominal pain1 (chief complaint) BPH1 (chief complaint) low back pain1 (chief complaint) HTN (chief complaint) Essential (primary) hypertensionLumbago with sciatica, left sideBPH w/o LUTSUmbilical hernia without obstruction or gangreneHydrocele 8 Rickey Flores. [address], [place], [place], [address] , [place]. [phone] Referring Provider: Zachary Chavarria [address], [place], [place], [address]. tel:[phone] OFFICE/OUTPA TIENT VISIT, [facility], [address], [place], [place], [address], [place] tel:[phone] [facility] foot pain1 (chief complaint) chronic pain1 (chief complaint) GERD1 (chief complaint) HTN (chief complaint) GERD w/o esophagitisPain in unspecified footEssential (primary) hypertensionTobacco useChronic pain syndrome 8 Rickey Muñoz [address], [place], [place], [address] , [place]. [phone] Referring Provider: Zachary Chavarria [address], [place], [place], [address]. tel:[phone] OFFICE/OUTPA TIENT VISIT, [facility], [address], [place], [place], [address], [place] tel:[phone] [facility] glucose1 (chief complaint) HLP (chief complaint) polycythem ia1 (chief complaint) chronic pain1 (chief complaint) GERD1 (chief complaint) HyperglycemiaHyperl ipidemiaSecondary polycythemiaGERD w/o esophagitis 8 Rickey Muñoz [address], [place], [place], [address] , [place]. tel:[phone] Referring Provider: Mark Lang, [address], [place], [place], [address]. tel:[phone] PREV VISIT, NEW, AGE 40-64 [facility], [address], [place], [place], [address], [place] tel:[phone] [facility] PHysical (chief complaint) Encntr for general adult medical exam w/o abnormal findings 0201 8 Rickey Flores. [address], [place], [place], [address] , [place]. tel:[phone] Referring Provider: Mark Lang, [address] [facility] [address], [place], [place], [address]. tel:[phone] Family History Family Member Type Diagnosis Age At Onset Brother Problem (finding) of mva Mother Problem (finding) thyroid CA Father Problem (finding) CAD (Cause Of ) 43 Mother Problem (finding) Alive and well Brother Problem (finding) of neck CA 50 Mother Problem (finding) knee replacement Payers Payer name Insurance type Covered alliance party ID Authoriza tion(s) No Information Social History [...] ordered Referral Referred To: HAYLEY PACE [address] [place], [place], [id number] Ordered: Referrals: Allopathic & Osteopathic Physicians : Orthopaedic Surgery. HAYLEY PACE. Evaluate and treat ordered Referral Ordered: Dermatology (related to Nevus, non-neoplastic) ordered Referral Ordered: Referrals: Dermatology. Evaluate and treat ordered Referral Referred To: Vin HARDWICK, Abraham Weiner [address]
[place] [address] [place], [place], [address] Ordered: Referrals: Abraham Banuelos MD. Evaluate and treat ordered Referral Ordered: US THYROID ordered Referral Ordered: Myek Shelton MD -Urology (related to BPH w/o LUTS) ordered Referral Referred To: Myke Shelton MD [address] [facility]
[address] [place], [place], [address] Ordered: Referrals: Urology. Myke Shelton MD. Evaluate and treat ordered Referral Referred To: Myke Shelton MD [address] [facility]
[address] [place], [place], [address] Ordered: Referrals: Myke Shelton MD. Evaluate and treat ordered Referral Referred To: Narayan Banks MD [address]
[place], [address] Ordered: Referrals: Narayan Banks MD. Evaluate and [...] KATHRYN JAY [address] [place], [place], [phone] Ordered: Referrals: Allopathic & Osteopathic Physicians : [...] ordered Referral Referred To: José Miguel Catherine [address] [place], [place] [id number] Ordered: Referrals: Allopathic & Osteopathic Physicians : Surgery. José Miguel Catherine. Evaluate and treat ordered Referral Ordered: REGINA MACHUCA -Podiatric Medicine & Surgery Service Providers : Director Of Psychology (related to Pain in unspecified foot) ordered Referral Referred To: REGINA MACHUCA [facility] [place], [place], [phone] Ordered: Referrals: Podiatric Medicine & Surgery Service Providers : Director Of Psychology. REGINA MACHUCA. Evaluate and treat ordered Referral [...] notices mild swelling left knee as well anxiety1 Pt has chronic a nxiety and depression Pt does not like lexapro either Pt states that he can not focus with lexapro Pt denies any suicidal or homicidal thought Pt denies any crying spells. pt states that he does not want anymore SSRis. colon polyp1 Pt has sessile p olyps on colonoscopy and he needs to repeat in 5 years Pt denies any GI issue pain Pt has chronic n howard and back pain due to DDD Pt denies any loss of bowel or bladder control or saddle area paresthesia .Pt needs norco and flexeril refilled nevus1 Pt notices a sma ll dark mole mid chest area for several months. Pt denies any bleeding Pt denies any size change anxietty1 Pt has chronic a nxiety and [...] paresthesia .Pt needs norco and flexeril refilled thyroid nodule1 Pt has history o f thyroid nodule with benign biopsy Pt denies any dysphagia or neck pain. Pt had thyroid ultrasound done which was benign and stable glucose1 Pt has mildly dannielle rderline high [...] year Pt denies any lower Gi issue thyroid nodule1 Pt has thyroid n odule on CTA of neck. Pt denies any dysphagia. 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 Pt denies any sob. Pt went to ER and CTA of neck done which showed sebaceous cyst right side of the neck only tobacco1 Pt has 50 pack y ear tobacco. Pt has mild COPD Pt denies any sob Pt denies any hemoptysis GERD1 Pt denies any GE RD and he saw Gi and was told that he has IBS. Pt is doing diet now and he is doing ok. Pt denies any abd pain BPH1 Pt has BPH with LUTS. Pt was started on flomax by urology and had PSA and prostate exam done which was ok per patient. Pt could not tolerate flomax and he is off and he is doing ok with supplement. pain Pt has chronic n howard pain due to spondylosis .Pt has radiculopathy Pt takes norco PRN for pain Pt just saw neurosurgery and he will do NCS and he was referred to [facility] and he was started on amitriptyline but had not helped Pt was told to try back injection but he could not afford it now. abd pain1 pt c/o abdominal bloating and abdominal discomfort and crampy pain. Pt also c/o recurrent GERD. Pt has been taking tums ,Pt denies any blood in stool. Pt has frequent BM with diarrhea without blood BPH1 Pt has BPH witho ut any urinary symptoms. Pt denies any dysuria, ,urgency and frequency. Pt had prostate exam done by urology September 2019. tobacco1 Pt continues to smoke Pt denies [...] loss, nausea, vomiting, early satiety, etc . neck pain1 Pt has chronic n howard pain with left radiculopathy Pt c/o mild left arm/hand numbness and weakness. Pt had MRI done which showed moderate cervical spondylosis without bulging disc. Pt is rather uncomfortable daily. Pt failed NSAID. tobacco Pt has more than 30 pack year tobacco pt denies any hemoptysis, sob or cough Pt has not done LDCT yet colon polyp1 Pt has colon vick yp Pt denies any GI bleeding or lower GI symptoms. neck pain1 Pt c/o chronic n howard pain with left radiculopathy Pt failed PT .Pt notices mild weakness left arm with left finger numbness and tingling Pt denies any cold extremity PT denies any finger discoloration LDCT PT denies any he moptysis, sob or cough Pt still smoking Pt needs LDCT ferritin1 Pt has high ferr itin Pt has not drink alcohol for over one year Pt had benign liver ultrasound. Pt has not seen liver specialist at [facility] yet neck pain1 Pt has chronic p osterior [...] up appointment with liver specialist yet at [facility] He denies any abd pain neck [...] high ferr itin. Pt was referred to [facility] Gi but he does not have dolores until october. Pt is concerned neck pain1 pt c/o left side neck muscle pain for several weeks pt denies any radiculopathy. Pt denies any injury anxiety1 Pt has anxiety a nd mild depression Pt denies any suicidal or homicidal thought. Pt denies any crying spells ,Pt could not tolerate remeron ,Pt is off remeron Pt wants valium refill. mcv Pt has enlarged MCV on recent lab. Pt was drinking heavily but not anymore. ferritin Pt has high ferr itin. Pt has high MCV. 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 He is confused and is concerned He told me hematology referring him to a specialist at [facility] but he does not know why and [...] calm and perform any activity at work. polycythemia1 Pt has borderlin e polycythemia. Pt smokes Pt may have sleep apnea. Pt has high ferritin. Pt states that he drinks 6-8 beers per day. Pt denies any abdominal pain Pt denies any jaundice tobacco1 pt still smoking Pt denies any sob, hemoptysis or cough back pain1 Pt has low back pain. Pt denies any loss of bowel or bladder control. Pt has DDD. Pt failed NSAID and ultram HTN Pt has borderlin e hTN. Pt [...] Pt denies any chest pain or headache BPH1 Pt has mild BPH. Pt denies any urinary symptoms. Pt denies any dribbling or any trouble with urination low back pain1 Pt has chronic l ow back pain. he is back to his baseline pain now Pt c/o chronic left sciatica and left leg numbness. Pt denies any loss of bladder control. abdominal pain1 Pt was trying to reach [...] Pt also has trace hydrocele both side. foot pain1 Pt has some foot numbness [...] gluc ose Pt denies any polyuria polydipsia polycythemia1 Pt has polycythe óscar Pt does smoke. pt has snoring and sometimes he has difficulty with breathing at night. Pt sometimes feels fatigue in the morning. GERD1 Pt has chronic G ERD. Pt takes multiple tums per day. Pt has heartburn Pt denies any abd pain or nausea, vomiting, abdominal pain PHysical Pt needs annual physical. Pt has [...] smoking. Related to Essen tial (primary) hypertension Special diet education Related t o Body mass index (BMI) 27.0-27.9, adult Increase activity. Related to Es sential (primary) hypertension Stop smoking. Related to Essen tial (primary) hypertension Follow a low sodium diet. Relate d to Essential (primary) hypertension Elevate head of bed prior to sle [...] Mental Status Date Cognitive Assessment Orientation - [place] ed to time, place, person, situation.
--- OUTSIDE RECORDS SUMMARY | 2024-10-09 14:33 | XMS_ITS | Clinical Summary ---
Author Organization [facility] Address [address], [facility] [address] [place] [address] Phone Care Team Providers Care Experience Designer Name Role Phone Mark Lang Primary Care Provider [phone] Gallo Del Castillo MD Unavailable [phone] Allergies Active Allergy Reactions Criticality Noted Date [...] PSA 0.86 0.00 - 4.00 ng/mL [facility] Comment: Maude Paramagnetic Particle Chemiluminescent Immunoassay Method Blood specimen (specimen) 06/09/2019 10:50 AM CDT Mark Lang CHEMISTRY ORDERABLES Final Resul t [facility] [address] [place] [address], from Last 3 Months or Most Recently Relevant to Health Maintenance Insurance [facility] Care Teams Experience Designer Relationship Specialty Start Date End Date LangMark [address] [place] [address] PCP - General Family Medicine 01/01/19 Gallo Del Castillo MD [address] [place] [address] Consulting Physician Oncology 01/01/19
--- OUTSIDE RECORDS SUMMARY | 2024-10-09 14:33 | XMS_ITS | Clinical Summary ---
Author Organization [facility] [employer] Address [address] [place] [address] Care Team Providers Care Battery Filler Name Role Phone Mark Lang MD Primary Care Provider [phone] Source Comments [facility] [employer],non-owned Affiliates and Associated Physician Practices is amultiple site organization consisting of ambulatory clinics and hospital sitesin [place], [place], [place] and [place]. This disclosure is being madepursuant to the Care Everywhere program and may not contain all information available regarding this patient. 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
--- OUTSIDE RECORDS SUMMARY | 2024-10-09 14:33 | XMS_ITS | Clinical Summary ---
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
--- OUTSIDE RECORDS SUMMARY | 2024-10-09 14:33 | XMS_ITS | Referral Summary ---
Author Organization [facility] [employer] Address [address] [place] [address] Care Team Providers Care Gps Field Data Collector Name Role Phone Mark Lang MD Primary Care Provider [phone] Source Comments [facility] [employer],non-owned Affiliates and Associated Physician Practices is amultiple site organization consisting of ambulatory clinics and hospital sitesin [place], [place], [place] and [place]. This disclosure is being madepursuant to the Care Everywhere program and may not contain all information available regarding this patient. 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
--- OUTSIDE RECORDS SUMMARY | 2024-10-09 14:33 | XMS_ITS | Patient Health Summary ---
Author Organization [facility] Address [address] [place] [address] Care Team Providers Care Search Engine Optimizer Name Role Phone Mark Lang MD Primary Care Provider [phone] Note from [facility],non-owned Affiliates and Associated Physician Practices is amultiple site organization consisting of ambulatory clinics and hospital sitesin [place], [place], [place] and [place]. This disclosure is being madepursuant to the Care Everywhere program and may not contain all information available regarding this patient. Last updated 18.[facility] Allergies * Bee Venom(Swelling) * Beef [...] CDT Respiratory Rate 18 07/20/2020 8:49 AM QUALITY LAB ASSOC Oxygen Saturation 99% 11/16/2020 9:57 AM CDT Inhaled Oxygen Concentration - - Weight 78 kg (172 lb) 11/16/2020 9:57 AM CDT Height 185.4 cm (6' 1 ) 11/16/2020 9:57 AM CDT Body Mass Index 22.69 11/16/2020 9:57 AM CDT Procedures * DERMATOPATHOLOGY(Performed 01/01/2024) Results * DERMATOPATHOLOGY (01/01/2024 3:33 AM CDT) Case Report Dermatopathology Report Case: [id number] Authorizing Provider: Tanner Tse MD Collected: 01/01/2024 03:33 AM Ordering Location: [facility] - Received: 01/02/2024 07:35 AM [...] characteristic determined by the Dermatopathology Laboratory at [facility], directed by Dr. Candy Boles. These tests need not be, and therefore are not, approved by the [place] Food and Drug Administration. The tests are used for clinical purposes. Billing Codes Specimen Charges Stain Charges 82345 1 4 4:30 PM CDT DERMATOPATHOLOGY LABORATORY Embedded Images 4 4:30 PM CDT DERMATOPATHOLOGY LABORATORY Pathology/Cytolo gy TISSUE SPECIMEN FROM SKIN / Unknown 01/01/2024 3:33 AM CDT 01/02/2024 7:35 AM CDT Tanner Tse MD LAB - PATHOLOGY/CYTO LOGY ORDERABLES DERMATOPATHOLOGY LABORATORY [facility] - Department of Dermatology [facility] Specialized Medicine [address] [place] [address], [address] [phone] Care Teams Search Engine Optimizer Relationship Specialty Start Date End Date Mark Lang MD PCP - General 06/13/20
[2024-10-09 14:41] VITALS: BP 108/84; PULSE 86; RESP 18; O2SAT 99
[2024-10-09] MEDS: ONDANSETRON INJ 4 MG/2 ML VIAL IV PUSH (14:47)
[2024-10-09] MEDS: SODIUM CHLORIDE 0.9% IV 1,000 ML 999 ML IV CONT (14:47)
[2024-10-09 14:48] LABS: Basophils Percent Auto 0.5 % (0.2-1.2); Eosinophils Absolute Auto 0.1 K/mm3 (0-0.3); Eosinophils Percent Auto 1.3 % (0-4.4); Hematocrit 45.9 % (42.0-52.0); Hemoglobin 15.9 g/dL (14.0-18.0); Immature Granulocyte Absolute 0.03 K/mm3 (0.00-0.031); Immature Granulocyte Percent A 0.5 % (0-0.5); Lymphocytes Absolute Auto 1.73 K/mm3 (0.9-3.2); Lymphocytes Percent Auto 27.9 % (18.3-44.2); Mean Corpuscular HGB Conc 34.6 g/dl (32-36); Mean Corpuscular Hemoglobin 32.1 pg (26-34); Mean Corpuscular Volume 92.5 fl (80-100); Mean Platelet Volume 9.2 fl (7.4-10.4); Monocytes Absolute Auto 0.5 K/mm3 (0.1-0.6); Monocytes Percent Auto 7.6 % (2.6-8.5); Neutrophils Absolute Auto 3.9 K/mm3 (1.3-6.7); Neutrophils Percent Auto 62.2 % (45.5-73.1); Platelet Count Result 224 k/mm3 (150-375); Red Blood Count 4.96 M/mm3 (4.6-6.20); Red Cell Distribution Width 12.6 % (11.5-14.5); White Blood Count 6.2 K/mm3 (4.5-10.0)
[2024-10-09] MEDS: MORPHINE SULFATE (*CRX) 4 MG/ML INJ IV PUSH (14:48)
[2024-10-09 14:50] LABS: Add Urine Microscopic? NO; Appearance Urine Clear (Clear); Bilirubin Urine Negative (Negative); Blood Urine Negative (Negative); Color Urine Yellow (Yellow); Glucose Urine UA Negative (Negative); Ketones Urine Negative (Negative); Leukocyte Esterase Ur Negative LEU/UL (Negative); Nitrate Urine Negative (Negative); Protein Urine Negative (Negative); Specific Grav Ur 1.006 (1.001-1.035); Urobilinogen Urine 0.2 mg/dL (<2.0); pH Urine 5.5 (5.0-9.0)
[2024-10-09 14:58] LABS: Alanine Aminotransferase 24 U/L (6-50); Albumin Level 4.6 g/dL (3.5-5.1); Alkaline Phosphatase 116 U/L (38-126); Anion Gap 10 mmol/L (4-12); Aspartate Amino Transferase 23 U/L (17-59); Bilirubin,Total 0.7 mg/dL (0.2-1.3); Blood Urea Nitrogen 11 mg/dL (9-20); Calcium 9.4 mg/dL (8.4-10.2); Carbon Dioxide 26 mmol/L (22-30); Chloride 104 mmol/L (98-107); Estimated CRCL calculation 73 ml/min; Estimated Glomerular Filt Rate > 60; Glucose 90 mg/dL (65-110); Lipase 213 U/L (23-300); Potassium 4.1 mmol/L (3.4-5.0); Sodium 140 mmol/L (137-145)
[2024-10-09] MEDS: KETOROLAC 30 MG/ML VIAL (*BKC) IV PUSH (16:20)
== END 2024-10-09 16:21 | disposition home or self-care (01) ==
PROVIDERS: Emergency Provider Physician Assistant; PCP Emergency Medicine
DX: R10.9 Unspecified abdominal pain (principal); K44.9 Diaphragmatic hernia without obstruction or gangrene; M19.072 Primary osteoarthritis, left ankle and foot; K58.9 Irritable bowel syndrome, unspecified; F17.210 Nicotine dependence, cigarettes, uncomplicated; Z85.828 Personal history of other malignant neoplasm of skin; Z86.0100 Personal history of colon polyps, unspecified; Z90.49 Acquired absence of other specified parts of digestive tract; J90 Pleural effusion, not elsewhere classified
CPT/HCPCS: 36415; 74177; 80053; 81003; 83690; 85025; 96361; 96374; 96375; 99284; J1885; J2270; J2405; J7030; Q9967

== ENCOUNTER 2024-10-23 13:01 | Emergency (ER) | payer BC, SELFPAY ==
--- NOTE | 2024-10-23 13:08 | ED.GENADULT ---
HPI - General Adult General Chief complaint: Upper Respiratory Infection Stated complaint: chills,fever,decreased appetite, no balance Time Seen by Provider: 10/23/24 13:10 Source: patient, RN notes reviewed and old records reviewed Mode of arrival: ambulatory Limitations: no limitations History of Present Illness HPI narrative: 63-year-old male presents to the [facility] with complaints of fevers, chills, decreased appetite, generalized weakness and abdominal pain. Symptoms started Friday night after he got up for work. Reports fevers as high as 102. Has not felt like eating or drinking anything. Reports shortness of breath, abdominal pain. Onset (ago): day(s) (3) Related Data Home Medications ?Medication ?Instructions ?Recorded ?Confirmed ?Last Taken ?Type hydrocodone 7.5 mg-acetaminophen 1 tablet PO Q6H PRN pain 10/23/24 10/23/24 Unknown History 325 mg tablet Allergies Allergy/AdvReac Type Severity Reaction Status Date / Time latex Allergy Intermediate Rash Verified 10/23/24 13:03 Review of Systems Review of Systems: All systems reviewed & are unremarkable except as noted in HPI and below Constitutional: Constitutional: Reports as per HPI, Reports body ache(s), Reports chills, Reports fatigue, Reports lethargy, Reports poor appetite and Reports weakness ENT: Reports system reviewed and no additional complaints, except as documented Cardiovascular: Cardiovascular: Reports no additional cardiovascular complaints, Denies chest pain and Denies dyspnea Respiratory: Respiratory: Reports as per HPI, Denies chest congestion, Reports cough and Reports dyspnea Gastrointestinal: Gastrointestinal: Reports as per HPI and Reports abdominal pain Musculoskeletal: Musculoskeletal: Reports no additional musculoskeletal complaints Integumentary/Breasts: Skin/Breast: Reports system reviewed and no additional complaints, except as docu Neurologic: Reports as per HPI [facility] Past Medical History Medical History Arthritis of ankle, left, degenerative Arthritis History of skin cancer Weight loss, unintentional Acute lateral meniscus tear of left knee Acute medial meniscus tear of left knee Colon polyp IBS (irritable bowel syndrome) Ulnar club hand Carpal tunnel syndrome Surgical History Surgical History Hx of cholecystectomy Family History Family History Unknown Arthritis Cancer Diabetes mellitus Social History Social History Smoking packs per day: 1 Smoking cigarettes per day: 20.0 Years smoked: 40 Smoking pack-years: 40.00 Smoking status: Current every day smoker Tobacco type: cigarettes Alcohol intake: never Substance use: current Substance use type: marijuana Other substance usage details: OCC. Living arrangements: with family Occupation/Education: occupation Additional occupation/education comments: [employer] Gender identity (if verbalized by the patient): Male Spiritual care concerns: No Comments At the time of my signature, I reviewed and agree with the nursing past medical, surgical, social, and family history. There is no relevant family history pertinent to the patient complaint. Exam Const: General: cooperative, no acute distress, well developed, alert, ill appearing, tired appearing and uncomfortable Nutritional Appearance: well nourished Orientation/consciousness: patient oriented x3 Limitations: no limitations HENMT: Head: normal to inspection Ears: hearing grossly normal bilaterally, external ears normal, TM's normal bilaterally, mastoids normal and no periauricular adenopathy Face/Nose/Sinus: Normal external nose present, Normal nares present and No nasal discharge present Mouth: Yes lip normal and Yes dry mucous membranes Eyes: General: appearance normal, both eyes and all related structures Alignment and Position: alignment normal Neck: Neck: normal visual inspection, full ROM, no lymphadenopathy and no meningeal signs Chest: Chest palpation & inspection: normal inspection of the chest Resp: Effort & Inspection: normal respiratory effort and able to speak in complete sentences Auscultation: clear to auscultation bilaterally, no crackles, no rales, no rhonchi and no wheezes Cardio: Rate: regular rate GI: GI Palp: Yes abdominal tenderness and Yes Soft to palpation Skin: General skin exam: normal color and no rashes or lesions noted Neuro: General: patient oriented x3, moves all extremities and no meningeal signs Cranial nerves: Yes Equal, round and reactive pupils present and Yes facial symmetry Cognition (Neuro): normal cognition Speech: normal speech Gait exam (Neuro): Assisted gait required (patient assisted from chair to wheel chair. Unable to stand independently) Extrem: General: full ROM and capillary refill normal Psych: Appearance: grossly normal and well kempt Mental Status: mental status grossly normal Speech and movement: Normal speech and movement present and Clear speech present Affect: normal affect Attitude: cooperative Course Course Level of Care: Express Care Visit Vital Signs Vital signs: Vital Signs Temperature 97.3 F L 10/23/24 13:10 Pulse Rate 76 10/23/24 13:10 Respiratory Rate 16 10/23/24 13:10 Blood Pressure 124/73 10/23/24 13:10 Pulse Oximetry 98 10/23/24 13:10 Oxygen Delivery Room Air 10/23/24 13:10 Temperature 97.3 F L 10/23/24 13:10 Pulse Rate 76 10/23/24 13:10 Respiratory Rate 16 10/23/24 13:10 Blood Pressure 124/73 10/23/24 13:10 Pulse Oximetry 98 10/23/24 13:10 Oxygen Delivery Room Air 10/23/24 13:10 Reviewed Medical Decision Making MDM Narrative Medical decision making narrative: Patient presents with , reporting fevers since Friday night as high as 102. Not wanting to eat. Balance. Chills. Generalized weakness, shortness of breath, abdominal pain. Patient is influenza A positive Due to abdominal pain, shortness of breath, generalized weakness, concerns for dehydration sending for further evaluation. Transfer instructions reviewed with patient and . Sending for higher level care, [facility] Patient with some generalized weakness 1 person assist will send via EMS All questions have been answered, and the patient deny any further questions. Some parts of this dictation were generated by voice recognition software and may contain typographical and/or grammatical inaccuracies. Differential Diagnosis Differential Diagnosis: Influenza, COVID, dehydration, abdominal pain, pneumonia Medical Records Medical records reviewed: Yes I reviewed the external patient's medical records. Vital Signs Vital Signs: Vital Signs Temperature 97.3 F L 10/23/24 13:10 Pulse Rate 76 10/23/24 13:10 Respiratory Rate 16 10/23/24 13:10 Blood Pressure 124/73 10/23/24 13:10 Pulse Oximetry 98 10/23/24 13:10 Oxygen Delivery Room Air 10/23/24 13:10 Temperature 97.3 F L 10/23/24 13:10 Pulse Rate 76 10/23/24 13:10 Respiratory Rate 16 10/23/24 13:10 Blood Pressure 124/73 10/23/24 13:10 Pulse Oximetry 98 10/23/24 13:10 Oxygen Delivery Room Air 10/23/24 13:10 Reviewed Lab Data Lab results reviewed: Yes I reviewed the patient's lab results. Labs: Lab Results 10/23/24 Range/Units 13:17 POC Capillary Glucose 98 (65-105) mg/dl Reviewed Critical Care Time Critical Care Time Critical Care Time: No Discharge Plan Discharge Clinical Impression: Influenza A, Generalized weakness, Abdominal pain Patient Disposition: Acute Care Hospital Condition: Stable Patient Language: Tajik Prescriptions: No Action hydrocodone-acetaminophen 7.5-325 mg tablet 1 tablet PO Q6H PRN (Reason: pain) omeprazole 10 mg capsule,delayed release(DR/EC) 10 mg PO DAILY Qty: 30 0RF lidocaine 5 % adhesive patch,medicated 1 patch topical DAILY Qty: 15 0RF Rx Instructions: leave on most painful area for up to 12 hrs ondansetron 4 mg tablet,disintegrating 4 mg PO Q8H PRN (Reason: nausea and vomiting) Qty: 15 0RF Follow-up/Referrals: Mark Lang MD [Primary Care Provider] -
[2024-10-23 13:10] VITALS: BP 124/73; PULSE 76; RESP 16; TEMP 36.3; O2SAT 98
[2024-10-23 13:21] LABS: Glucose Point of Care 98 mg/dl (65-105)
--- NOTE | 2024-10-23 13:24 | ECG_ITS ---
Test Date: 2024-10-23 13:22:04 Measurements Intervals Plain Rate: 71 P: 54 VT: 139 QRS: 65 QRSD: 99 T: 55 QT: 364 QTc: 397 Interpretive Statements SINUS RHYTHM WITH OCCASIONAL VENTRICULAR PREMATURE COMPLEXES ABNORMAL ECG No previous ECG available for comparison Electronically Signed On 10-23-2024 16:04:37 GOLF SALES MANAGER by Danilo Brumfield M.D.
[2024-10-23 13:53] LABS: EDCOVIDSCREEN Negative (Negative); EDINFLUASCREEN Positive (Negative); EDINFLUBSCREEN Negative (Negative)
== END 2024-10-23 13:27 | disposition short-term general hospital (02) ==
PROVIDERS: Emergency Provider Nurse Practitioner; PCP Emergency Medicine
DX: J10.1 Influenza due to other identified influenza virus with other respiratory manifestations (principal); R53.1 Weakness; R10.9 Unspecified abdominal pain; F17.210 Nicotine dependence, cigarettes, uncomplicated; Z79.891 Long term (current) use of opiate analgesic; Z85.828 Personal history of other malignant neoplasm of skin; Z20.822 Contact with and (suspected) exposure to COVID-19
CPT/HCPCS: 82948; 87426; 87804; 93005; 99215; G0463

== ENCOUNTER 2024-10-23 13:54 | Emergency (ER) | payer BC, SELFPAY ==
[2024-10-23] VITALS (7 sets, daily range): BP systolic 113–121; BP diastolic 76–95; PULSE 68–75; RESP 13–16; TEMP 36.7; O2SAT 98–100
--- OUTSIDE RECORDS SUMMARY | 2024-10-23 13:56 | XMS_ITS | Referral Summary ---
Author Organization [facility] [employer] Address [address] [place] [address] Care Team Providers Care Analysis Consultant Name Role Phone Mark Lang MD Primary Care Provider [phone] Source Comments [facility] [employer],non-owned Affiliates and Associated Physician Practices is amultiple site organization consisting of ambulatory clinics and hospital sitesin [place], [place], [place] and [place]. This disclosure is being madepursuant to the Care Everywhere program and may not contain all information available regarding this patient. 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
--- OUTSIDE RECORDS SUMMARY | 2024-10-23 13:56 | XMS_ITS | Encounter Summary ---
Author Organization [facility] Address [address] [place] [address] Care Team Providers Care Ecological Modeler Name Role Phone Mark Lang MD Primary Care Provider [phone] Encounter Details Date Type Department Care Team (Late st Contact Info) Description 01/01/2024 Lab Requisition [facility] - DermPath Lab [address] [place] [id number] Tanner Tse MD [address] [place] [address] Social History Tobacco Use Types [...] AM CDT) Case Report Dermatopathology Report Case: [id number] Authorizing Provider: Tanner Tse MD Collected: 01/01/2024 03:33 AM Ordering Location: [facility] Physician [facility] - Received: 01/02/2024 07:35 AM DermPath [...] characteristic determined by the Dermatopathology Laboratory at [facility], directed by Dr. Candy Boles. These tests need not be, and therefore are not, approved by the [place] Food and Drug Administration. The tests are used for clinical purposes. Billing Codes Specimen Charges Stain Charges 45896 1 4:30 PM CDT DERMATOPATHOLOGY LABORATORY Embedded Images 4:30 PM CDT DERMATOPATHOLOGY LABORATORY Pathology/Cytolo gy TISSUE SPECIMEN FROM SKIN / Unknown 01/01/2024 3:33 AM CDT 01/02/2024 7:35 AM CDT Tanner Tse MD LAB - PATHOLOGY/CYTO LOGY ORDERABLES DERMATOPATHOLOGY LABORATORY [facility] - Department of Dermatology [address], [address] [phone] documented in this encounter Visit Diagnoses Not on filedocumented in this encounter Care Teams Ecological Modeler Relationship Specialty Start Date End Date Mark Lang MD PCP - General 06/13/20 documented as of this encounter
--- OUTSIDE RECORDS SUMMARY | 2024-10-23 13:56 | XMS_ITS | Clinical Summary ---
Author Organization 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
--- OUTSIDE RECORDS SUMMARY | 2024-10-23 13:56 | XMS_ITS | Clinical Summary ---
Author Organization [facility] Address [address] [facility] [address] [place] [address] Phone Care Team Providers Care Power Shovel Mechanic Name Role Phone Mark Lang Primary Care Provider [phone] Gallo Del Castillo MD Unavailable [phone] Allergies Active Allergy Reactions Criticality Noted Date [...] PSA 0.86 0.00 - 4.00 ng/mL [facility] OPTICAL SALES ASSOCI[facility] Comment: Maude Paramagnetic Particle Chemiluminescent Immunoassay Method Blood specimen (specimen) 06/09/2019 10:50 AM CDT Mark Lang CHEMISTRY ORDERABLES Final Resul t [facility]ES [facility]OC[facility] [address] [place] [address], from Last 3 Months or Most Recently Relevant to Health Maintenance Insurance [facility] Care Teams Power Shovel Mechanic Relationship Specialty Start Date End Date LangMark [address] [place] [address] PCP - General Family Medicine 01/01/19 Gallo Del Castillo MD [address] [place] [address] Consulting Physician Oncology 01/01/19
--- OUTSIDE RECORDS SUMMARY | 2024-10-23 13:56 | XMS_ITS | Patient Health Summary ---
Author Organization [facility] Address [address] [place] [address] Care Team Providers Care Mobile Sales Technician Name Role Phone Mark Lang MD Primary Care Provider [phone] Note from [facility],non-owned Affiliates and Associated Physician Practices is amultiple site organization consisting of ambulatory clinics and hospital sitesin [place], [place], [place] and [place]. This disclosure is being madepursuant to the Care Everywhere program and may not contain all information available regarding this patient. Last updated 18.[facility] Allergies * Bee Venom(Swelling) * Beef [...] CDT Respiratory Rate 18 07/20/2020 8:49 AM FLEXIBLE BABYSITTER Oxygen Saturation 99% 11/16/2020 9:57 AM CDT Inhaled Oxygen Concentration - - Weight 78 kg (172 lb) 11/16/2020 9:57 AM CDT Height 185.4 cm (6' 1 ) 11/16/2020 9:57 AM CDT Body Mass Index 22.69 11/16/2020 9:57 AM CDT Procedures * DERMATOPATHOLOGY(Performed 01/01/2024) Results * DERMATOPATHOLOGY (01/01/2024 3:33 AM CDT) Case Report Dermatopathology Report Case: [id number] Authorizing Provider: Tanner Tse MD Collected: 01/01/2024 03:33 AM Ordering Location: [facility] - Received: 01/02/2024 07:35 AM [...] characteristic determined by the Dermatopathology Laboratory at [facility], directed by Dr. Candy Boles. These tests need not be, and therefore are not, approved by the [place] Food and Drug Administration. The tests are used for clinical purposes. Billing Codes Specimen Charges Stain Charges 77297 1 4 4:30 PM CDT DERMATOPATHOLOGY LABORATORY Embedded Images 4 4:30 PM CDT DERMATOPATHOLOGY LABORATORY Pathology/Cytolo gy TISSUE SPECIMEN FROM SKIN / Unknown 01/01/2024 3:33 AM CDT 01/02/2024 7:35 AM CDT Tanner Tse MD LAB - PATHOLOGY/CYTO LOGY ORDERABLES DERMATOPATHOLOGY LABORATORY [facility] - Department of Dermatology [facility] Specialized Medicine [address] [place] [address], [address] [phone] Care Teams Mobile Sales Technician Relationship Specialty Start Date End Date Mark Lang MD PCP - General 06/13/20
--- OUTSIDE RECORDS SUMMARY | 2024-10-23 13:56 | XMS_ITS | Clinical Summary ---
Author Organization [facility] Address [address] [place] [address] Care Team Providers Care Brick Mason Name Role Phone Mark Lang MD Primary Care Provider [phone] Source Comments [facility],non-owned Affiliates and Associated Physician Practices is amultiple site organization consisting of ambulatory clinics and hospital sitesin [place], [place], [place] and [place]. This disclosure is being madepursuant to the Care Everywhere program and may not contain all information available regarding this patient. 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
--- OUTSIDE RECORDS SUMMARY | 2024-10-23 13:56 | XMS_ITS | Encounter Summary ---
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 PERFORMED BY NUCLEIC ACID AMPLIFICATION PCR FIRST TEST NO 04/17/2021 12:21 PM CDT [facility] EMPLOYED IN HEALTHCARE NO 04/17/2021 12:21 PM CDT [facility] SYMPTOMATIC DEFINED BY CDC NO 04/17/2021 12:21 PM CDT [facility] HOSPITALIZATION STATUS NO 04/17/2021 12:21 PM CDT [facility] PATIENT IN ICU NO 04/17/2021 12:21 PM CDT [facility] RESIDENT OF [facility] NO 04/17/2021 12:21 PM CDT [facility] NASAL STRUCTURE / Unknown 04/17/2021 9:50 AM CDT us Reginald Elizondo MD MICROBIOLOGY - GENERAL ORDERABLE S Final Result [facility] [address] [place] [address], [place] [phone] [facility] [address] [place] [address], [place] [phone] documented in this encounter Visit Diagnoses Diagnosis Preop examination- Primary Preoperative examination, unspecified documented in this encounter Additional Health Concerns Infection Onset Date Last Indicated Resolved Time COVID-19 Rule Out 04/17/2021 04/17/2021 04/17/2021 9:19 PM CDT documented as of this encounter Care Teams Rn Community Health Relationship Specialty Start Date End Date Mark Lang MD PCP - General FAMILY PRACTICE 11/15/20 documented as of this encounter
--- OUTSIDE RECORDS SUMMARY | 2024-10-23 13:56 | XMS_ITS | Referral Summary ---
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
--- OUTSIDE RECORDS SUMMARY | 2024-10-23 13:56 | XMS_ITS | Data Portability ---
Author Organization [facility], Main Office Address [address] [place] [address] Care Team Providers Care Meal Attendant Name Role Phone SARA RAFAELA Primary Care Provider [phone] RAFAELA RUIZ Referring Provider [phone] Assessment Encounter Date Assessment Date Assessment LastModified by Organization Details LastModified Time 02/18/2024 02/18/2024 63 year old male present for his left knee. Reports pain for the past month, denies any injury. He had sharp pain walking on uneven ground, worse with activities. He has been taking meloxicam and hydrocodone without improvement. Denies prior injury. 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 Smokes 1 ppd ROS per questionnaire Antalgic gait, tenderness over medial and lateral joint line. ROM 5-130. Stable ligaments. Positive Paramjit. Sensation intact. XR reviewed, minimal degenerative changes [...] DO Not Attach Compendium, Do Not Delete/merge, [id number] 11:11:43 Surgeries None recorded. Imaging XR, knee 2023 024 [facility], [address], [place], [address], 4 09:01:36 Medication Orders Marcaine (PF) 0.5 % (5 mg/mL) injection solution [address] [id number], [address] [facility], [place], [place], [phone], 12:15:00 Kenalog 10 mg/mL suspension for injection [address] [id number], [address] , [place], [place], [phone], 12:15:00 Patient TargetsNo targets recorded. Patient InstructionsNo instructions recorded. Reason for Referral None Reported. Results Created Date Observation Date Name Description Value Unit Range Abnormal Flag Note LastModifiedBy Organization Detail LastModifiedTime 02/18/20 24 XR, knee No observ ation record ed. [email or web address] [facility] [address], [place], [address], 02/18/2024 10:39:50 Result Notes None recorded. Problems Name Problem SNOMED Code Status Onset Date Resolution Date Notes Provider Name and Address Organization Details Recorded Time Asthma 125807588 Active Not Available [facility] 20:21:28 Pain of left knee joint 078980920480137 Active 2023 JUAN Briones, [employer] 10:39:47 Problem Notes None recorded. Procedures Surgical History Date Name Laterality Status Provider Name and Address Organization Details Recorded Time Ortho - Cortisone Injection completed Ba Good MD [address] [facility], [facility] [address], [place], [address], [employer] 02/20/2024 15:08:44 Imaging Results Imaging Date Name Status LastModified by Organiz ation Details LastModified Time 02/18/2024 XR, knee completed [facility] [place] [place] [address], [place], [address], 02/18/2024 10:39:50 Procedure Notes None recorded. Medical Equipment None Reported. Allergies Allergen ID Allergen Name Allergen Category Reaction Reaction Severity Criticality Documentation Date Start Date Code Code System Note Provider Name and Address Organization Details Recorded Time 25130 latex environme nt,medica tion Not available Not available Not available 10/16/2022 08093 91 RxNorm Not Available [facility] 20:22:53 Medications [...] Updated DateTime 02/18/2024 185.42 cm 21.8 kg/m2 85511.74 g JUAN Briones [employer] 02/18/2024 10:36:11 Social History Question Answer Notes LastModified by Organizat ion Details LastModified Time Tobacco Smoking Status Never Smoker JUAN Briones null [employer] 02/18/2024 10:37:35 What Is Your Level Of Alcohol Consumption? None [email or web address] Information not available 02/18/2024 Sex: Unknown Functional Status None recorded. Mental Status None recorded. Family History Relationship Description Onset Age of this Age Resolved Age Notes LastModified by Organization Details LastModified Time Maternal Grandmother Diabetes mellitus [email or web address] Not available 2023 10:37:24 Notes:cancer= brother Medical History No medical history recorded. Past Encounters Encounter ID Performer Location Encounter Start Date Encounter Closed Date Diagnosis/Indication Diagnosis SNOMED-CT Code Diagnosis ICD10 Code Diagnosis Note [id number] Ba Good MD [facility] [address] [place] [address] 02/18/2024 10:18:05 02/18/2024 11:16:12 Pain of left knee joint 5192138136 51216 M25.562 Health Concerns Section Related Observation LastModified by Organization Detai ls LastModified Time None Recorded Concern Status LastModified by Organization Details LastModified Time None Recorded Advance Directives Directive None Recorded Payers Encounter Date Sequence Insurance Name Policy Number Policy Devi Covered Member ID Devi Member ID Guarantor Name 02/18/2024 1 [facility] ([place] [id number] Shawna Zamora [id number] Foreign Zamora
--- OUTSIDE RECORDS SUMMARY | 2024-10-23 13:56 | XMS_ITS | Continuity of Care Document ---
Author Organization [facility] Address [address] [place] [place] [address] Phone Care Team Providers Care Agriculture Engineer Name Role Phone Mark Lang MD Unavailable [...] for pain, avoid driving or operate machines omeprazole 20 mg capsule,delayed release take 1 capsule by oral route every day before a meal 20 MG - Active Procedures Procedure Date OFFICE/OUTPATIENT [...] Providers Copied on Encounter OFFICE/OUTPA TIENT VISIT, [facility], [address], [place], [place], [address], [place] tel:[phone] [facility] abd pain1 (chief complaint) back pain1 (chief complaint) Generalized abdominal painGERD w/o esophagitisPersonal history of nicotine dependenceChronic pain syndrome 5 Rickey Flores. [address], [place], [place], [address] , [place]. tel:[phone] Referring Provider: Zachary Chavar[address], [place], [place], [address]. tel:[phone] OFFICE/OUTPA TIENT VISIT, [facility], [address], [place], [place], [address], [place] tel:[phone] [facility] pain (chief complaint) basal cell (chief complaint) knee pain1 (chief complaint) Chronic pain syndromePain in left kneeNevus, non-neoplastic 4 Rickey Flores. [address], [place], [place], [address] , [place]. tel:[phone] Referring Provider: Zachary Chavar[address], [place], [place], [address]. tel:[phone] OFFICE/OUTPA TIENT VISIT, [facility], [address], [place], [place], [address], [place] tel:[phone] [facility] anxiety1 (chief complaint) colon polyp1 (chief complaint) pain (chief complaint) nevus1 (chief complaint) Polyp of colonGeneralized Anxiety DisorderNevus, non-neoplasticChron ic pain syndrome 4 Rickey Flores. [address], [place], [place], [address] , [place]. [phone] Referring Provider: Zachary Chavarria [address], [place], [place], [address]. tel:[phone] OFFICE/OUTPA TIENT VISIT, EST [facility], [address], [place], [place], [address], [place] tel:[phone] [facility] anxietty1 (chief complaint) thyroid nodule1 (chief complaint) colon polyp1 (chief complaint) pain (chief complaint) Polyp of colonThyroid noduleChronic pain syndromeGeneralized Anxiety Disorder 4 Rickey Flores. [address], [place], [place], [address] , [place]. [phone] Referring Provider: Zachary Chavarria [address], [place], [place], [address]. tel:[phone] OFFICE/OUTPA TIENT VISIT, [facility], [address], [place], [place], [address], [place] tel:[phone] [facility] glucose1 (chief complaint) thyroid nodule1 (chief complaint) polyp1 (chief complaint) anxiety1 (chief complaint) Chronic pain syndromeGeneralized Anxiety DisorderPolyp of colonThyroid noduleHyperglycemia 3 Rickey Flores. [address], [place], [place], [address] , [place]. tel:[phone] Referring Provider: Zachary Ch[address], [place], [place], [address]. tel:[phone] PREV VISIT, EST, AGE 40-64 [facility], [address], [place], [place], [address], [place] tel:[phone] [facility] Medicine physical (chief complaint) Encounter for general adult medical exam w abnormal findingsAbnormal weight lossPolyp of colonChronic pain syndromeGeneralized Anxiety Disorder 3 Rickey Muñoz [address], [place], [place], [address] , [place]. [phone] Referring Provider: Zachary Chavar[address], [place], [place], [address]. tel:[phone] PREV VISIT, EST, AGE 40-64 [facility], [address], [place], [place], [address], [place] tel:[phone] [facility] physical (chief complaint) Encounter for general adult medical exam w abnormal findingsBPH w/o LUTSThyroid noduleGERD w/o esophagitisDisorder of iron metabolism, unspecifiedPain in left kneePolyp of colon 2 Rickey Muñoz [address], [place], [place], [address] , [place]. [phone] Referring Provider: Zachary Chavar[address], [place], [address]. tel:[phone] OFFICE/OUTPA TIENT VISIT, EST [facility], [address], [place], [place], [address], [place] tel:[phone] [facility] Medicine GERD1 (chief complaint) BPH1 (chief complaint) thyroid nodule1 (chief complaint) neck swelling1 (chief complaint) tobacco1 (chief complaint) BPH w/o LUTSIrritable bowel syndromeTobacco useThyroid noduleSebaceous cyst 1 Rickey Sh[address], [place], [place], [address] , [place]. [phone] Referring Provider: Zachary Chavarria [address], [place], [place], [address]. tel:[phone] OFFICE/OUTPA TIENT VISIT, EST [facility], [address], [place], [place], [address], [place] tel:[phone] [facility] Medicine pain (chief complaint) abd pain1 (chief complaint) BPH1 (chief complaint) GERD w/o esophagitisBPH w/o LUTSOther spondylosis, cervical regionIrritable bowel syndrome 1 Rickey Muñoz [address], [place], [place], [address] , [place]. tel:[phone] Referring Provider: Zachary Chavarria [address], [place], [place], [address]. tel:[phone] OFFICE/OUTPA TIENT VISIT, [facility], [address], [place], [place], [address], [place] tel:[phone] [facility] tobacco1 (chief complaint) neck pain (chief complaint) GERD1 (chief complaint) weigh tloss (chief complaint) Other spondylosis, cervical regionGERD w/o esophagitisAbnormal weight lossTobacco use 0 Rickey Muñoz [address], [place], [place], [address] , [place]. tel:[phone] Referring Provider: Zachary Chavarria [address], [place], [place], [address]. tel:[phone] OFFICE/OUTPA TIENT VISIT, [facility], [address], [address], [place] tel:[phone] [facility] neck pain1 (chief complaint) tobacco (chief complaint) colon polyp1 (chief complaint) Other spondylosis, cervical regionRadiculopathy , cervical regionTobacco usePolyp of colon 0 Rickey Muñoz [address], [place], [place], [address] , [place]. tel:[phone] Referring Provider: Zachary Chavarria [address], [place], [place], [address]. tel:[phone] OFFICE/OUTPA TIENT VISIT, [facility], [address], [place], [place], [address], [place] tel:[phone] [facility] neck pain1 (chief complaint) LDCT (chief complaint) ferritin1 (chief complaint) Chronic pain syndromeDisorder of iron metabolism, unspecifiedTobacco use Apr- 0 Rickey Flores. [address], [place], [place], [address] , [place]. tel:[phone] Referring Provider: Zachary Chavarria [address], [place], [place], [address]. tel:[phone] OFFICE/OUTPA TIENT VISIT, [facility], [address], [place], [address], [place] tel:[phone] [facility] neck pain1 (chief complaint) Other spondylosis, cervical regionRadiculopathy , cervical region 0 Rickey Flores. [address], [place], [place], [address] , [place]. tel:[phone] Referring Provider: Zachary Chavarria [address], [place], [place], [address]. tel:[phone] OFFICE/OUTPA TIENT VISIT, [facility], [address], [place], [place], [address], [place] tel:[phone] [facility] pain1 (chief complaint) GERD1 (chief complaint) GERD w/o esophagitisOther spondylosis, cervical region 0 Rickey Muñoz [address], [place], [place], [address] , [place]. tel:[phone] Referring Provider: Zachary Chavarria [address], [place], [place], [address]. tel:[phone] OFFICE/OUTPA TIENT VISIT, [facility], [address], [place], [place], [address], [place] tel:[phone] [facility] BPH1 (chief complaint) ferritin1 (chief complaint) neck pain1 (chief complaint) GERD1 (chief complaint) anxiety1 (chief complaint) HematuriaGERD w/o esophagitisDisorder of iron metabolism, unspecifiedOther spondylosis, cervical regionTobacco useGeneralized Anxiety Disorder Brant- 0 Rickey Muñoz [address], [place], [place], [address] , [place]. tel:[phone] Referring Provider: Zachary Chavarria [facility] [address], [place], [place], [address]. tel:[phone] OFFICE/OUTPA TIENT VISIT, [facility], [address], [place], [place], [address], [place] tel:[phone] [facility] blood in urine1 (chief complaint) weight loss1 (chief complaint) ferritin1 (chief complaint) neck pain1 (chief complaint) anxiety1 (chief complaint) HematuriaBPH w/o LUTSDisorder of iron metabolism, unspecifiedCervical giaSebaceous cystGeneralized Anxiety Disorder 0 Rickey Flores. [address], [place], [place], [address] , [place]. [phone] Referring Provider: Zachary Chavarria [facility] [address], [place], [place], [address]. tel:[phone] OFFICE/OUTPA TIENT VISIT, [facility], [address], [place], [place], [address], [place] tel:[phone] [facility] anxiety1 (chief complaint) ferritin (chief complaint) mcv (chief complaint) Disorder of iron metabolism, unspecifiedOther specified disease of bloodGeneralized Anxiety DisorderPolyp of colon 9 Rickey Flores. [address], [facility] [address], [place], [place], [address] , [place]. tel:[phone] Referring Provider: Zachary Chavarria [address], [place], [place], [address]. tel:[phone] PREV VISIT, EST, AGE 40-64 [facility], [address] [place], [address], [place] tel:[phone] [facility] Physical (chief complaint) Encntr for general adult medical exam w/o abnormal findings 0 9 9 Rickey Flores. [address], [place], [place], [address] , [place]. tel:[phone] Referring Provider: Zachary Chavarria [address], [place], [place], [address]. tel:[phone] OFFICE/OUTPA TIENT VISIT, [facility], [address], [place], [address], [place] [phone] [facility] abd pain1 (chief complaint) WBC (chief complaint) anxiety1 (chief complaint) Secondary polycythemiaAbdomin al painGeneralized Anxiety DisorderLeukocytosi sHematuriaHyperglyc emiaBPH w/o LUTS 9 Rickey Flores. [address], [place], [place], [address] , [place]. [phone] Referring Provider: Zachary Chavarria [address], [place], [place], [address]. tel:[phone] OFFICE/OUTPA TIENT VISIT, [facility], [address], [place], [place], [address], [place] tel:[phone] [facility] anxiety1 (chief complaint) Generalized Anxiety DisorderAdjustment disorder w/ depressed mood 9 Rickey Flores. [address], [place], [place], [address] , [place]. [phone] Referring Provider: Zachary Chavar[address], [place], [place], [address]. tel:[phone] OFFICE/OUTPA TIENT VISIT, [facility], [address], [place], [place], [address], [place] [phone] [facility] polycythem ia1 (chief complaint) tobacco1 (chief complaint) back pain1 (chief complaint) Secondary polycythemiaChronic pain syndromeAlcohol dependence, uncomplicatedTobacc o use 9 Rickey Flores. [address], [place], [place], [address] , [place]. tel:[phone] Referring Provider: Zachary Chavarria [address], [place], [place], [address]. tel:[phone] OFFICE/OUTPA TIENT VISIT, [facility], [address], [place], [place], [address], [place] tel:[phone] [facility] HTN (chief complaint) mole1 (chief complaint) GERD1 (chief complaint) back pain1 (chief complaint) Essential (primary) hypertensionChronic pain syndromeGERD w/o esophagitisNevus, non-neoplasticTobac co useSecondary polycythemia 9 Rickey Flores. [address], [place], [place], [address] , [place]. [phone] Referring Provider: Zachary Chavarria [address], [place], [place], [address]. tel:[phone] OFFICE/OUTPA TIENT VISIT, [facility], [address], [place], [place], [address], [place] tel:[phone] [facility] abdominal pain1 (chief complaint) BPH1 (chief complaint) low back pain1 (chief complaint) HTN (chief complaint) Essential (primary) hypertensionLumbago with sciatica, left sideBPH w/o LUTSUmbilical hernia without obstruction or gangreneHydrocele 8 Rickey Muñoz [address], [place], [place], [address] , [place]. tel:[phone] Referring Provider: Zachary Chavarria [address], [place], [place], [address]. tel:[phone] OFFICE/OUTPA TIENT VISIT, [facility], [address], [place], [place], [address], [place] tel:[phone] [facility] foot pain1 (chief complaint) chronic pain1 (chief complaint) GERD1 (chief complaint) HTN (chief complaint) GERD w/o esophagitisPain in unspecified footEssential (primary) hypertensionTobacco useChronic pain syndrome 8 Rickey Muñoz [address], [place], [place], [address] , [place]. tel:[phone] Referring Provider: Zachary Chavarria [address], [place], [place], [address]. tel:[phone] OFFICE/OUTPA TIENT VISIT, EST [facility], [address], [place], [place], [address], tel:[phone] [facility] glucose1 (chief complaint) HLP (chief complaint) polycythem ia1 (chief complaint) chronic pain1 (chief complaint) GERD1 (chief complaint) HyperglycemiaHyperl ipidemiaSecondary polycythemiaGERD w/o esophagitis 8 Rickey Flores. [address], [place], [place], [address] , [place]. [phone] Referring Provider: Zachary Chavarria [address], [place], [place], [address]. tel:[phone] PREV VISIT, NEW, AGE 40-64 [facility], [facility] [address], [place], [place], [address], [place] tel:[phone] [facility] PHysical (chief complaint) Encntr for general adult medical exam w/o abnormal findings 8 Rickey Flores. [address], [place], [place], [address] , [place]. [phone] Referring Provider: Zachary Chavarria [address] [facility] [address], [place], [place], [address]. tel:[phone] Family History Family Member Type Diagnosis Age At Onset Brother Problem (finding) of mva Mother Problem (finding) thyroid CA Father Problem (finding) CAD (Cause Of ) 43 Mother Problem (finding) Alive and well Brother Problem (finding) of neck CA 50 Mother Problem (finding) knee replacement Payers Payer name Insurance type Covered constitution party ID Authoriza tion(s) [facility] CI [id number] Social History Type Description Quantity Date Captured Comments Alcohol Use Details No Caffeine Use Details Unknown Tobacco Use Status Very heavy cigarette smoker (40+ cigs/day) Smoking Status Heavy tobacco smoker Sex Male Vital Signs Date / Time: Height Weight BMI Pulse Rate Blood Pressure Temperature Respiratory Rate Body Surface Area Head Circumference BMI percentile Pulse Ox Inhaled Ox 10:11 AM 73.00 in 169.60 lbs 22.3 8 kg/m eter (2) 76 /min 120/80 mm[Hg] 97.9 F 16 /min Chief Complaint And Reason For Visit From encounter dated '10/14/2024 10:08'. abd pain1 (chief complaint). Description: Pt c/o acute onset of right side abd pain, swelling for two weeks. Pt c/o sharp pain, especially when he moves around Pt feels slightly nauseated. Pt c/o mild non bleeding diarrhea as well, which resolved recently Pt denies any constipation Pt denies any paresthesia. Pt had benign colonoscopy last year . Pt does do a lot of physical lifting at work. Pt went to ER 5 days ago and he had negative lab work and also CT scan .pt denies any urinary symptoms. Pt feels bloated right side of abdomen pt denies any fever or loss of appetite. Pt has chronic GERD Pt is back on omeprazole 20 mg daily now by ER back pain1 (chief complaint). Description: pt has chronic back and knee pain .Pt needs norco refilled. Plan Of Treatment Date Type Action Status [...] Special diet education compl eted Referral Ordered: ESOPHAGUS ENDOSCOPY ordered Referral Ordered: HAYLEY PACE -[facility]opathic [facility] Osteopathic Physicians : Orthopaedic Surgery (related to Pain in left knee) ordered Referral Referred To: HAYLEY PACE [address], [place], [phone] Ordered: Referrals: Allopathic & Osteopathic Physicians : Orthopaedic Surgery. HAYLEY PACE. Evaluate and treat ordered Referral Ordered: Dermatology (related to Nevus, non-neoplastic) ordered Referral Ordered: Referrals: Dermatology. Evaluate and treat ordered Referral Referred To: Vin HARDWICK, Abraham Weiner [address]
[place] [address] [place], [place], [address] Ordered: Referrals: Abraham Banuelos MD. Evaluate and treat ordered Referral Ordered: US THYROID ordered Referral Ordered: Myke Shelton MD -Urology (related to BPH w/o LUTS) ordered Referral Referred To: Myke Shelton MD [address] [place], [place], [address] Ordered: Referrals: Urology. Myke Shelton MD. Evaluate and treat ordered Referral Referred To: Myke Shelton MD [address] [place], [place], [address] Ordered: Referrals: Myke Shelton MD. Evaluate and treat ordered Referral Referred To: Narayan Banks MD [address]
[place], [address] Ordered: Referrals: Narayan Banks MD. Evaluate and treat ordered Referral Ordered: Physical Therapy (related to Other spondylosis, cervical region) ordered Referral Referred To: Physical Therapy Ordered: Referrals: Physical Therapy. Evaluate and treat ordered Referral Ordered: MRI NECK SPINE W/O DYE ordered Referral Ordered: KATHRYN JAY -[facility]opathic Physicians : Surgery (related to Hematuria) ordered Referral Referred To: KATHRYN JAY [address] [place], [place], [phone] Ordered: Referrals: Allopathic & Osteopathic Physicians : [...] ordered Referral Referred To: José Miguel Catherine [address] [place], [place] [id number] Ordered: Referrals: Allopathic & Osteopathic Physicians : Surgery. José Miguel Catherine. Evaluate and treat ordered Referral Ordered: REGINA MACHUCA -Podiatric Medicine & Surgery Service Providers : Asset Protection Professional (related to Pain in unspecified foot) ordered Referral Referred To: REGINA MACHUCA [facility] [facility],[address] [place], [place], [phone] Ordered: Referrals: Podiatric Medicine & Surgery Service Providers : Asset Protection Professional. REGINA MACHUCA. Evaluate and treat ordered Referral Ordered: CERVICAL SPINE XRAY 7 VIEWS ordered Referral Ordered: CT THORAX W/O DYE ordered History Of Present Illness Encounter Date Complaint History Of Prese nt Illness back pain1 pt has chronic b ack and knee pain .Pt needs norco refilled. abd pain1 Pt c/o acute ons et of right side abd pain, swelling for two weeks. Pt c/o sharp pain, especially when he moves around Pt feels slightly nauseated. Pt c/o mild non bleeding diarrhea as well, which resolved recently Pt denies any constipation Pt denies any paresthesia. Pt had benign colonoscopy last year . Pt does do a lot of physical lifting at work. Pt went to ER 5 days ago and he had negative lab work and also CT scan .pt denies any urinary symptoms. Pt feels bloated right side of abdomen pt denies any fever or loss of appetite. Pt has chronic GERD Pt is back on omeprazole 20 mg daily now by ER basal cell pt saw dermatolo gy and [...] paresthesia .Pt needs norco and flexeril refilled anxiety1 Pt has mild anxi ety and depression Pt tried cymbalta for one week and he feels more irritable with cymbalta and he stopped it. Pt denies any suicidal or homicidal thought Pt denies any crying spells. Pt feels baseline irritable anyway glucose1 Pt has mildly dannielle rderline high glucose pt denies any polyuria polydipsia thyroid nodule1 Pt has normal TS H and borderline high thyroglobulin Pt denies any dysphagia or neck pain. polyp1 Pt has history o f colon polyp. Pt has not heard from GI yet about colonoscopy physical Pt needs annual physical >pt has [...] CTA of neck. Pt denies any dysphagia. BPH1 Pt has BPH with LUTS. Pt [...] doing ok. Pt denies any abd pain pain Pt has chronic n howard pain [...] Pt has not seen liver specialist at [facility] yet LDCT PT denies any he moptysis, [...] up appointment with liver specialist yet at [facility] He denies any abd pain neck pain1 [...] high ferr itin. Pt was referred to U Gi but he does not have dolores [...] Pt has high MCV. Pt just seen multineedle shirrer. He is confused and is concerned He told me hematology referring him to a specialist at [facility] but he does not know why and [...] diet. Relate d to Essential (primary) hypertension Increase activity. Related to Es sential (primary) hypertension Elevate head of bed prior [...] 27.0-27.9, adult Assessments Type Assessment Date assessment Generalized abdominal pain assessment GERD w/o esophagitis assessment Personal history of nicotine dep endence assessment Chronic pain syndrome Mental Status Date Cognitive Assessment Orientation - [place] ed to time, place, person, situation.
--- OUTSIDE RECORDS SUMMARY | 2024-10-23 13:56 | XMS_ITS | Clinical Summary ---
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
--- OUTSIDE RECORDS SUMMARY | 2024-10-23 13:57 | XMS_ITS | Continuity of Care Document ---
Author Organization [facility] Address [address] [place] [address] Phone Care Team Providers Care Tarper Name Role Phone Jakub PT,MPT,ATC, Keven Unavailable Unavai lable Procedures Procedure Date Neuromuscular Re-Ed Therapeutic Exercise Therapeutic Activities Neuromuscular Re-Ed Therapeutic Exercise PT Evaluation Moderate Complexity Therapeutic Exercise Advance Directives Directive Yes / No Effective Date File Name No Information Encounters Encounter Description Practice Location Reason(s) For Visit Diagnoses Date Provider Providers Copied on Encounter [facility], [address], [place], [place], [address], tel:[phone] [place] No Information 0 Jakub Baca. , [place], [place]. [facility], [place], [place], [address], tel:[phone] [place] No Information 0 Jakub Baca. , [place], [place]. Referring Provider: Mark Lang, [address], [place], [address]. tel:[phone] [facility], [place], [place], [address], tel:[phone] [place] No Information 0 Jakub Baca. , [place], [place]. Referring Provider: Zachary Chavar[address], [place], [address]. tel:[phone] [facility] [facility], [place], [place], [address], [place] tel:[phone] [place] No Information 0 Dada Middleton. . Referring Provider: Mark Lang, [address] [facility] [address], [place], [address]. tel:[phone] Family History Family Member Type Diagnosis Age At Onset No Information Payers Payer name Insurance type Covered democrat ID Ros tovar(s) [facility] [id number] Social History Type Description Quantity Date Captured [...]
--- NOTE | 2024-10-23 17:18 | ECG_ITS ---
Test Date: 2024-10-23 17:34:25 Measurements Intervals Cutler Rate: 67 P: 23 NC: 132 QRS: 46 QRSD: 96 T: 42 QT: 371 QTc: 393 Interpretive Statements SINUS RHYTHM NORMAL ELECTROCARDIOGRAM Compared to ECG 10/23/2024 13:22:04 Ventricular premature complex(es) no longer present Electronically Signed On 10-24-2024 07:54:23 CDT by Danilo Brumfield M.D.
--- NOTE | 2024-10-23 17:18 | ED.WEAKNESS ---
HPI - Weakness General Chief complaint: Weakness Stated complaint: Weakness-Flu A positive Time Seen by Provider: 10/23/24 16:57 Source: patient Mode of arrival: ambulatory Limitations: no limitations History of Present Illness HPI Narrative: This is a 63-year-old male who presents to the ED for chief complaint of flu-like symptoms, generalized weakness over the past couple of days. He was seen in urgent care today and referred over to the ED for IV fluid administration due to the provider there thinking he was dehydrated. States that over the past 4 5 days he has developed subjective fevers, chills and generalized weakness and fatigue. States that he was feeling lightheaded while at the urgent care today. Denies immuno compromising condition. Denies chest pain, cough shortness of breath, focal numbness or weakness. Per chart review he tested positive for flu A at urgent care today. Related Data Home Medications ?Medication ?Instructions ?Recorded ?Confirmed ?Last Taken ?Type hydrocodone 7.5 mg-acetaminophen 1 tablet PO Q6H PRN pain 10/23/24 10/23/24 Unknown History 325 mg tablet Allergies Allergy/AdvReac Type Severity Reaction Status Date / Time latex Allergy Intermediate Rash Verified 10/23/24 17:02 Review of Systems Review of Systems: All systems as dictated in HPI [facility] Past Medical History Medical History Arthritis of ankle, left, degenerative Arthritis History of skin cancer Weight loss, unintentional Acute lateral meniscus tear of left knee Acute medial meniscus tear of left knee Colon polyp IBS (irritable bowel syndrome) Ulnar club hand Carpal tunnel syndrome Surgical History Surgical History Hx of cholecystectomy Family History Family History Unknown Arthritis Cancer Diabetes mellitus Social History Social History Smoking packs per day: 1 Smoking cigarettes per day: 20.0 Years smoked: 40 Smoking pack-years: 40.00 Smoking status: Current every day smoker Tobacco type: cigarettes Alcohol intake: never Substance use: current Substance use type: marijuana Other substance usage details: OCC. Living arrangements: with family Occupation/Education: occupation Additional occupation/education comments: [employer] Gender identity (if verbalized by the patient): Male Spiritual care concerns: No Exam Narrative: GENERAL: Appears dehydrated. Resting comfortably. HEAD: Normocephalic, atraumatic. EYES: PERRLA and EOMI. ENT: Nares clear, no rhinorrhea or epistaxis. Mucous membranes moist. Oropharynx without tonsillar hypertrophy exudate or other lesions. NECK: Supple. No adenopathy or masses. CHEST: No respiratory distress. Clear to auscultation. No wheezes rales or rhonchi HEART: Regular rate and rhythm. No murmur heard. Normal peripheral pulses. ABDOMEN: Soft, nontender, nondistended, normal active bowel sounds. MSK: Normal range of motion. No edema. SKIN: Warm, dry, no rash. NEURO: Alert and oriented x4. No focal deficits. PSYCH: Normal mood and affect. Course Reevaluation(s) Reevaluation #1: Patient is feeling much improved overall. He feels ready to go home. Date: 10/23/24 Time: 19:15 Vital Signs Vital signs: Vital Signs Temperature 98.1 F 10/23/24 14:16 Pulse Rate 72 10/23/24 14:16 Respiratory Rate 16 10/23/24 14:16 Blood Pressure 113/76 10/23/24 14:16 Pulse Oximetry 98 10/23/24 14:16 Oxygen Delivery Room Air 10/23/24 14:16 Temperature 98.1 F 10/23/24 14:16 Pulse Rate 68 10/23/24 19:17 Respiratory Rate 16 10/23/24 19:17 Blood Pressure 115/78 10/23/24 19:17 Pulse Oximetry 100 10/23/24 19:17 Oxygen Delivery Room Air 10/23/24 17:04 MDM - Weakness MDM Narrative Medical decision making narrative: This is a 63-year-old male who presents to the ED for chief complaint of feeling generally weak and fatigued with positive flu test at urgent care today. They were concerned that he may need fluids. Vitals are normal. Exam remarkable for the above. He does look dehydrated clinically. Lab work showing normal CBC overall. CMP unremarkable as well. Urinalysis shows evidence dehydration but no infection. He was given Tylenol and fluids IV here. He feels better on re-evaluation. Presentation is consistent with influenza. He is out of the therapeutic window for any benefit from Tamiflu. Patient will be discharged in stable condition. Supportive measures discussed and return precautions given. Patient is understanding and agreeable with plan for discharge with PCP follow-up. Lab Data 10/23/24 17:53 10/23/24 17:53 Labs: Lab Results 10/23/24 10/23/24 Range/Units 17:53 18:35 WBC 5.5 (4.5-10.0) K/mm3 RBC 4.49 L (4.6-6.20) M/mm3 Hgb 14.6 (14.0-18.0) g/dL Hct 41.4 L (42.0-52.0) % MCV 92.2 (80-100) fl MCH 32.5 (26-34) pg MCHC 35.3 (32-36) g/dl RDW 12.4 (11.5-14.5) % Plt Count 113 L (150-375) k/mm3 MPV 9.7 (7.4-10.4) fl Immature Gran % (Auto) 0.2 (0-0.5) % Neut % (Auto) 66.1 (45.5-73.1) % Lymph % (Auto) 24.1 (18.3-44.2) % [place] % (Auto) 9.2 H (2.6-8.5) % Eos % (Auto) 0.0 (0-4.4) % Baso % (Auto) 0.4 (0.2-1.2) % Lymph # (Auto) 1.33 (0.9-3.2) K/mm3 [place] # (Auto) 0.5 (0.1-0.6) K/mm3 Eos # (Auto) 0.0 (0-0.3) K/mm3 Baso # (Auto) 0.0 (0.0-0.1) K/mm3 Abs Immat Gran (auto) 0.01 (0.00-0.031) K/mm3 Absolute Neuts (auto) 3.7 (1.3-6.7) K/mm3 Absolute Nucleated RBC 0.000 (0.0-0.012) K/mm3 Nucleated RBC % 0.0 (0.0-0.2) % % Immature Plt Fraction 3.7 (0.9-11.2) % Sodium 135 L (137-145) mmol/L Potassium 3.7 (3.4-5.0) mmol/L Chloride 102 (98-107) mmol/L Carbon Dioxide 24 (22-30) mmol/L Anion Gap 9 (4-12) mmol/L BUN 14 (9-20) mg/dL Creatinine 0.93 (0.7-1.3) mg/dL Estim Creat Clear Calc 76 ml/min Estimated GFR > 60 (59 - ) Glucose 80 (65-110) mg/dL Calcium 8.6 (8.4-10.2) mg/dL Total Bilirubin 0.6 (0.2-1.3) mg/dL AST 32 (17-59) U/L ALT 27 (6-50) U/L Alkaline Phosphatase 82 (38-126) U/L Total Protein 7.0 (6.3-8.2) g/dL Albumin 3.9 (3.5-5.1) g/dL Urine Color Dark yellow (Yellow) Urine Appearance Cloudy H (Clear) Urine pH 5.5 (5.0-9.0) Ur Specific [place] 1.033 (1.001-1.035) Urine Protein 1+ H (Negative) mg/dL Urine Glucose (UA) Negative (Negative) mg/dL Urine Ketones 3+ H (Negative) mg/dL Ur Blood (Man) Trace (Negative) Urine Nitrate Negative (Negative) Urine Bilirubin Negative (Negative) Urine Urobilinogen 0.2 (<2.0) mg/dL Add Ur Microanalysis Reviewed Leukocyte Esterase Rfl Negative (Negative) [place]OR[place]O/UL Urine RBC 0-2 (0-2) /hpf Urine WBC 0-5 (0-3) /hpf Ur Squamous Epith Cells Few (Few) /hpf Urine Bacteria None seen /hpf Hyaline Casts 5-9 H (None) /lpf Granular Casts 1-2 H (None) /lpf Urine Mucus Present /lpf Discharge Plan Discharge Clinical Impression: Influenza A, Orthostatic dizziness Patient Disposition: Home, Self-Care Condition: Stable Instructions: Antibiotic Form Additional Instructions: Exam and imaging today are reassuring. Please make sure that you stay very well hydrated at home. Use Tylenol every 6 hours as needed for fevers. Follow-up closely with PCP. Symptoms should resolve over the next 4 - 5 days. If you have any new or worsening symptoms please return to the ER for further evaluation. Patient Language: Danish Prescriptions: No Action hydrocodone-acetaminophen 7.5-325 mg tablet 1 tablet PO Q6H PRN (Reason: pain) omeprazole 10 mg capsule,delayed release(DR/EC) 10 mg PO DAILY Qty: 30 0RF lidocaine 5 % adhesive patch,medicated 1 patch topical DAILY Qty: 15 0RF Rx Instructions: leave on most painful area for up to 12 hrs ondansetron 4 mg tablet,disintegrating 4 mg PO Q8H PRN (Reason: nausea and vomiting) Qty: 15 0RF Follow-up/Referrals: Mark Lang MD [Primary Care Provider] - Time of Disposition: 19:08
--- OUTSIDE RECORDS SUMMARY | 2024-10-23 17:18 | XMS_ITS | Continuity of Care Document ---
Author Organization [facility] Address [address] [place] [address] Phone Care Team Providers Care Balance Bridge Inspector Name Role Phone Jakub PT,MPT,ATC, Keven Unavailable Unavai lable Procedures Procedure Date Therapeutic Exercise Neuromuscular Re-Ed Therapeutic Activities Neuromuscular Re-Ed Therapeutic Exercise PT Evaluation Moderate Complexity Therapeutic Exercise Advance Directives Directive Yes / No Effective Date File Name No Information Encounters Encounter Description Practice Location Reason(s) For Visit Diagnoses Date Provider Providers Copied on Encounter [facility], [address], [place], [place], [address], tel:[phone] [place] No Information 0 Jakub Baca. , [place], [place]. [facility], [place], [place], [address], tel:[phone] [place] No Information 0 Jakub Baca. , [place], [place]. Referring Provider: Mark Lang, [address], [place], [address]. tel:[phone] [facility], [place], [place], [address], tel:[phone] [place] No Information 0 Jakub Baca. , [place], [place]. Referring Provider: Mark Lang [address], [place], [address]. tel:[phone] [facility], [place], [place], [address], [place] tel:[phone] [place] No Information 0 Dada Middleton. . Referring Provider: Mark Lang, [address] [facility] [address], [place], [address]. tel:[phone] Family History Family Member Type Diagnosis Age At Onset No Information Payers Payer name Insurance type Covered alliance party ID Ros tovar(s) [facility] [id number] Social History Type Description Quantity Date Captured [...]
--- OUTSIDE RECORDS SUMMARY | 2024-10-23 17:18 | XMS_ITS | Referral Summary ---
Author Organization [facility] Address [address] [place] [address] Care Team Providers Care Pattern Drum Maker Name Role Phone Mark Lang MD Primary Care Provider [phone] Source Comments [facility],non-owned Affiliates and Associated Physician Practices is amultiple site organization consisting of ambulatory clinics and hospital sitesin [place], [place], [place] and [place]. This disclosure is being madepursuant to the Care Everywhere program and may not contain all information available regarding this patient. 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
--- OUTSIDE RECORDS SUMMARY | 2024-10-23 17:18 | XMS_ITS | Clinical Summary ---
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
--- OUTSIDE RECORDS SUMMARY | 2024-10-23 17:18 | XMS_ITS | Continuity of Care Document ---
Author Organization [facility] Address [address] [place] [address] Phone Care Team Providers Care Spar Finisher Name Role Phone Mark Lang MD Unavailable Unavailable Allergies, Adverse Reactions, Alerts Substance Reaction Status Criticality latex Active No Information Medications Medication Instructions Dosage Effective Dates (start - stop) Status Comments omeprazole 20 mg capsule,delayed release take 1 capsule by oral route every day before a meal 20 MG - Active hydrocodone 7.5 mg-acetaminophen 325 [...] Providers Copied on Encounter OFFICE/OUTPA TIENT VISIT, [facility], [address], [place], [place], [address], [place] tel:[phone] [facility] [place] abd pain1 (chief complaint) back pain1 (chief complaint) Generalized abdominal painGERD w/o esophagitisPersonal history of nicotine dependenceChronic pain syndrome 5 Rickey Flores. [address], [place], [place], [address] , [place]. tel:[phone] Referring Provider: Zach[address] Chavar[address], [place], [place], [address]. tel:[phone] OFFICE/OUTPA TIENT VISIT, [facility], [address], [place], [place], [address], [place] tel:[phone] [facility] [place] pain (chief complaint) basal cell (chief complaint) knee pain1 (chief complaint) Chronic pain syndromePain in left kneeNevus, non-neoplastic 4 Rickey Flores. [address], [place], [place], [address] , [place]. tel:[phone] Referring Provider: Zach[address], [place], [place], [address]. tel:[phone] OFFICE/OUTPA TIENT VISIT, [facility], [address], [place], [place], [address], [place] tel:[phone] [facility] anxiety1 (chief complaint) colon polyp1 (chief complaint) pain (chief complaint) nevus1 (chief complaint) Polyp of colonGeneralized Anxiety DisorderNevus, non-neoplasticChron ic pain syndrome 4 Rickey Flores. [address], [place], [place], [address] , [place]. [phone] Referring Provider: Zachary Chavarria [address], [place], [place], [address]. tel:[phone] OFFICE/OUTPA TIENT VISIT, EST [facility] [place], [address], [place], [place], [address], [place] tel:[phone] [facility] [place] anxietty1 (chief complaint) thyroid nodule1 (chief complaint) colon polyp1 (chief complaint) pain (chief complaint) Polyp of colonThyroid noduleChronic pain syndromeGeneralized Anxiety Disorder 4 Rickey Flores. [address], [place], [place], [address] , [place]. [phone] Referring Provider: Zachary Chavarria [address], [place], [place], [address]. tel:[phone] OFFICE/OUTPA TIENT VISIT, [facility], [address], [place], [place], [address], [place] tel:[phone] [facility] [place] glucose1 (chief complaint) thyroid nodule1 (chief complaint) polyp1 (chief complaint) anxiety1 (chief complaint) Chronic pain syndromeGeneralized Anxiety DisorderPolyp of colonThyroid noduleHyperglycemia 3 Rickey Flores. [address], [place], [place], [address] , [place]. tel:[phone] Referring Provider: [address], [place], [place], [address]. tel:[phone] PREV VISIT, EST, AGE 40-64 [facility] [place], [address], [place], [place], [address], [place] tel:[phone] [facility] Medicine physical (chief complaint) Encounter for general adult medical exam w abnormal findingsAbnormal weight lossPolyp of colonChronic pain syndromeGeneralized Anxiety Disorder 3 Rickey Muñoz [address], [place], [place], [address] , [place]. [phone] Referring Provider: Zach[address], [place], [place], [address]. tel:[phone] PREV VISIT, EST, AGE 40-64 [facility] [place], [address], [place], [place], [address], [place] tel:[phone] [facility] [place] physical (chief complaint) Encounter for general adult medical exam w abnormal findingsBPH w/o LUTSThyroid noduleGERD w/o esophagitisDisorder of iron metabolism, unspecifiedPain in left kneePolyp of colon 2 Rickey Muñoz [address], [place], [place], [address] , [place]. tel:[phone] Referring Provider: [address], [place], [place], [address]. tel:[phone] OFFICE/OUTPA TIENT VISIT, EST [facility] [place], [address], [place], [place], [address], [place] tel:[phone] [facility] Medicine GERD1 (chief complaint) BPH1 (chief complaint) thyroid nodule1 (chief complaint) neck swelling1 (chief complaint) tobacco1 (chief complaint) BPH w/o LUTSIrritable bowel syndromeTobacco useThyroid noduleSebaceous cyst 1 [address], [place], [place], [address] , [place]. [phone] Referring Provider: Zachary Chavarria [address], [place], [place], [address]. tel:[phone] OFFICE/OUTPA TIENT VISIT, EST [facility] [place], [address], [place], [place], [address], [place] tel:[phone] [facility] Medicine pain (chief complaint) abd pain1 (chief complaint) BPH1 (chief complaint) GERD w/o esophagitisBPH w/o LUTSOther spondylosis, cervical regionIrritable bowel syndrome 1 Rickey Muñoz [address], [place], [place], [address] , [place]. tel:[phone] Referring Provider: Zachary Chavarria [address], [place], [place], [address]. tel:[phone] OFFICE/OUTPA TIENT VISIT, [facility], [address], [place], [place], [address], [place] tel:[phone] [facility] [place] tobacco1 (chief complaint) neck pain (chief complaint) GERD1 (chief complaint) weigh tloss (chief complaint) Other spondylosis, cervical regionGERD w/o esophagitisAbnormal weight lossTobacco use 0 Rickey Muñoz [address], [place], [place], [address] , [place]. tel:[phone] Referring Provider: Zachary Chavarria [address], [place], [place], [address]. tel:[phone] OFFICE/OUTPA TIENT VISIT, [facility], [address], [address], [place] tel:[phone] [facility] [place] neck pain1 (chief complaint) tobacco (chief complaint) colon polyp1 (chief complaint) Other spondylosis, cervical regionRadiculopathy , cervical regionTobacco usePolyp of colon 0 Rickey Muñoz [address], [place], [place], [address] , [place]. tel:[phone] Referring Provider: Zachary Chavarria [address], [place], [place], [address]. tel:[phone] OFFICE/OUTPA TIENT VISIT, [facility], [address], [place], [place], [address], [place] tel:[phone] [facility] [place] neck pain1 (chief complaint) LDCT (chief complaint) ferritin1 (chief complaint) Chronic pain syndromeDisorder of iron metabolism, unspecifiedTobacco use Apr- 0 Rickey Flores. [address], [place], [place], [address] , [place]. tel:[phone] Referring Provider: Zachary Chavarria [address], [place], [place], [address]. tel:[phone] OFFICE/OUTPA TIENT VISIT, [facility], [address], [place], [place], [address], [place] tel:[phone] [facility] [place] neck pain1 (chief complaint) Other spondylosis, cervical regionRadiculopathy , cervical region 0 Rickey Flores. [address], [place], [place], [address] , [place]. tel:[phone] Referring Provider: Zachary Chavarria [address], [place], [place], [address]. tel:[phone] OFFICE/OUTPA TIENT VISIT, [facility], [address], [place], [place], [address], [place] tel:[phone] [facility] [place] pain1 (chief complaint) GERD1 (chief complaint) GERD w/o esophagitisOther spondylosis, cervical region 0 Rickey Muñoz [address], [place], [place], [address] , [place]. tel:[phone] Referring Provider: Zachary Chavarria [address], [place], [place], [address]. tel:[phone] OFFICE/OUTPA TIENT VISIT, [facility], [address], [place], [place], [address], [place] tel:[phone] [facility] [place] BPH1 (chief complaint) ferritin1 (chief complaint) neck pain1 (chief complaint) GERD1 (chief complaint) anxiety1 (chief complaint) HematuriaGERD w/o esophagitisDisorder of iron metabolism, unspecifiedOther spondylosis, cervical regionTobacco useGeneralized Anxiety Disorder Brant- 0 Rickey Muñoz [address], [place], [place], [address] , [place]. tel:[phone] Referring Provider: Zachary Chavarria [facility] [address], [place], [place], [address]. tel:[phone] OFFICE/OUTPA TIENT VISIT, [facility], [address], [place], [place], [address], [place] tel:[phone] [facility] [place] blood in urine1 (chief complaint) weight loss1 (chief complaint) ferritin1 (chief complaint) neck pain1 (chief complaint) anxiety1 (chief complaint) HematuriaBPH w/o LUTSDisorder of iron metabolism, unspecifiedCervical giaSebaceous cystGeneralized Anxiety Disorder 0 Rickey Flores. [address], [place], [place], [address] , [place]. [phone] Referring Provider: Zachary Chavarria [facility] [address], [place], [place], [address]. tel:[phone] OFFICE/OUTPA TIENT VISIT, [facility], [address], [place], [place], [address], [place] tel:[phone] [facility] [place] anxiety1 (chief complaint) ferritin (chief complaint) mcv (chief complaint) Disorder of iron metabolism, unspecifiedOther specified disease of bloodGeneralized Anxiety DisorderPolyp of colon 9 Rickey Flores. [address], [facility] [address], [place], [place], [address] , [place]. tel:[phone] Referring Provider: Zachary Chavarria [address], [place], [place], [address]. tel:[phone] PREV VISIT, EST, AGE 40-64 [facility] [place], [address], [place], [address], [place] tel:[phone] [facility] [place] Physical (chief complaint) Encntr for general adult medical exam w/o abnormal findings 0 9 9 Rickey Flores. [address], [place], [place], [address] , [place]. tel:[phone] Referring Provider: Zachary Chavarria [address], [place], [place], [address]. tel:[phone] OFFICE/OUTPA TIENT VISIT, [facility], [address], [place], [place], [address], [place] [phone] [facility] [place] abd pain1 (chief complaint) WBC (chief complaint) anxiety1 (chief complaint) Secondary polycythemiaAbdomin al painGeneralized Anxiety DisorderLeukocytosi sHematuriaHyperglyc emiaBPH w/o LUTS 9 Rickey Flores. [address], [place], [place], [address] , [place]. [phone] Referring Provider: Zachary Chavarria [address], [place], [place], [address]. tel:[phone] OFFICE/OUTPA TIENT VISIT, [facility], [address], [place], [place], [address], [place] tel:[phone] [facility] [place] anxiety1 (chief complaint) Generalized Anxiety DisorderAdjustment disorder w/ depressed mood 9 Rickey Flores. [address], [place], [place], [address] , [place]. tel:[phone] Referring Provider: Zachary Chavar[address], [place], [place], [address]. tel:[phone] OFFICE/OUTPA TIENT VISIT, [facility], [address], [place], [place], [address], [place] [phone] [facility] [place] polycythem ia1 (chief complaint) tobacco1 (chief complaint) back pain1 (chief complaint) Secondary polycythemiaChronic pain syndromeAlcohol dependence, uncomplicatedTobacc o use 9 Rickey Flores. [address], [place], [place], [address] , [place]. tel:[phone] Referring Provider: Zachary Chavarria [address], [place], [place], [address]. tel:[phone] OFFICE/OUTPA TIENT VISIT, [facility], [address], [place], [place], [address], [place] tel:[phone] [facility] [place] HTN (chief complaint) mole1 (chief complaint) GERD1 (chief complaint) back pain1 (chief complaint) Essential (primary) hypertensionChronic pain syndromeGERD w/o esophagitisNevus, non-neoplasticTobac co useSecondary polycythemia 9 Rickey Flores. [address], [place], [place], [address] , [place]. [phone] Referring Provider: Zachary Chavarria [address], [place], [place], [address]. tel:[phone] OFFICE/OUTPA TIENT VISIT, [facility], [address], [place], [place], [address], [place] tel:[phone] [facility] [place] abdominal pain1 (chief complaint) BPH1 (chief complaint) low back pain1 (chief complaint) HTN (chief complaint) Essential (primary) hypertensionLumbago with sciatica, left sideBPH w/o LUTSUmbilical hernia without obstruction or gangreneHydrocele 8 Rickey Muñoz [address], [place], [place], [address] , [place]. tel:[phone] Referring Provider: Zachary Chavarria [address], [place], [place], [address]. tel:[phone] OFFICE/OUTPA TIENT VISIT, [facility], [address], [place], [place], [address], [place] tel:[phone] [facility] [place] foot pain1 (chief complaint) chronic pain1 (chief complaint) GERD1 (chief complaint) HTN (chief complaint) GERD w/o esophagitisPain in unspecified footEssential (primary) hypertensionTobacco useChronic pain syndrome 8 Rickey Muñoz [address], [place], [place], [address] , [place]. tel:[phone] Referring Provider: Zachary Chavarria [address], [place], [place], [address]. tel:[phone] OFFICE/OUTPA TIENT VISIT, EST [facility] [place], [address], [place], [place], [address], tel:[phone] [facility] [place] glucose1 (chief complaint) HLP (chief complaint) polycythem ia1 (chief complaint) chronic pain1 (chief complaint) GERD1 (chief complaint) HyperglycemiaHyperl ipidemiaSecondary polycythemiaGERD w/o esophagitis 8 Rickey Flores. [address], [place], [place], [address] , [place]. [phone] Referring Provider: Zachary Chavarria [address], [place], [place], [address]. tel:[phone] PREV VISIT, NEW, AGE 40-64 [facility] [place], [facility] [address], [place], [place], [address], [place] tel:[phone] [facility] [place] PHysical (chief complaint) Encntr for general adult medical exam w/o abnormal findings 8 Rickey Flores. [address], [place], [place], [address] , [place]. [phone] Referring Provider: Zachary Chavarria [address] [facility] [address], [place], [place], [address]. tel:[phone] Family History Family Member Type Diagnosis Age At Onset Brother Problem (finding) of mva Mother Problem (finding) thyroid CA Father Problem (finding) CAD (Cause Of ) 43 Mother Problem (finding) Alive and well Brother Problem (finding) of neck CA 50 Mother Problem (finding) knee replacement Payers Payer name Insurance type Covered green party ID Authoriza tion(s) [facility] CI [id number] Social History Type Description Quantity Date Captured [...] ordered Referral Referred To: HAYLEY PACE [address], [place], [id number] Ordered: Referrals: Allopathic & Osteopathic Physicians : Orthopaedic Surgery. HAYLEY PACE. Evaluate and treat ordered Referral Ordered: Dermatology (related to Nevus, non-neoplastic) ordered Referral Ordered: Referrals: Dermatology. Evaluate and treat ordered Referral Referred To: Vin HARDWICK, Abraham Weiner [address]
[place] [address] [place], [place], [id number] Ordered: Referrals: Abraham Banuelos MD. Evaluate and treat ordered Referral Ordered: US THYROID ordered Referral Ordered: Myke Shelton MD -Urology (related to BPH w/o LUTS) ordered Referral Referred To: Myke Shelton MD [address] [place], [place], [address] Ordered: Referrals: Urology. Myke Shelton MD. Evaluate and treat ordered Referral Referred To: Myke Shelton MD [address] [place], [place], [address] Ordered: Referrals: Myke Shelton MD. Evaluate and treat ordered Referral Referred To: Narayan Banks MD [address]
[place], [address] Ordered: Referrals: Narayan Banks MD. Evaluate and [...] JAY [address] [place], [place], [phone] Ordered: Referrals: Allopathic & Osteopathic Physicians : [...] ordered Referral Referred To: José Miguel Catherine [address] [place], [place] [id number] Ordered: Referrals: Allopathic & Osteopathic Physicians : Surgery. José Miguel Catherine. Evaluate and treat ordered Referral Ordered: REGINA MACHUCA -Podiatric Medicine & Surgery Service Providers : Stage Set Designer (related to Pain in unspecified foot) ordered Referral Referred To: REGINA AMCHUCA [facility] [place], [place], [phone] Ordered: Referrals: Podiatric Medicine & Surgery Service Providers : Stage Set Designer. REGINA MACHUCA. Evaluate and treat ordered Referral Ordered: CERVICAL SPINE XRAY 7 VIEWS ordered Referral Ordered: CT THORAX W/O DYE ordered History Of Present Illness Encounter Date Complaint History Of Prese nt Illness abd pain1 Pt c/o acute ons et [...] mg daily now by ER back pain1 pt has chronic b ack and knee pain .Pt needs norco refilled. basal cell pt saw dermatolo gy and [...] doing ok. Pt denies any abd pain BPH Pt has BPH with LUTS. Pt [...] has frequent BM with diarrhea without blood BPH Pt has BPH witho ut any urinary [...] Pt has not seen liver specialist at [facility] yet neck pain1 Pt has chronic p [...] appointment with liver specialist yet at [facility] He denies any abd pain neck pain1 [...] Pt has high MCV. 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 He is confused and is concerned He told me hematology referring him to a specialist at [facility] but he does not know why [...] Mental Status Date Cognitive Assessment Orientation - [place] ed to time, place, person, situation.
--- OUTSIDE RECORDS SUMMARY | 2024-10-23 17:18 | XMS_ITS | Clinical Summary ---
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
--- OUTSIDE RECORDS SUMMARY | 2024-10-23 17:18 | XMS_ITS | Encounter Summary ---
Author Organization [facility] Address [address] [place] [address] Care Team Providers Care Piling Cutter Name Role Phone Mark Lang MD Primary Care Provider [phone] Encounter Details Date Type Department Care Team (Late st Contact Info) Description 01/01/2024 Lab Requisition [facility] - DermPath Lab [address] [place] [id number] Tanner Tse MD [address] [place] [address] Social History Tobacco Use Types [...] AM CDT) Case Report Dermatopathology Report Case: [id number] Authorizing Provider: Tanner Tse MD Collected: 01/01/2024 03:33 AM Ordering Location: [facility] Physician [place] [...] characteristic determined by the Dermatopathology Laboratory at [facility], directed by Dr. Candy Boles. These tests need not be, and therefore are not, approved by the [place] Food and Drug Administration. The tests are used for clinical purposes. Billing Codes Specimen Charges Stain Charges 15837 1 4:30 PM CDT DERMATOPATHOLOGY LABORATORY Embedded Images 4:30 PM CDT DERMATOPATHOLOGY LABORATORY Pathology/Cytolo gy TISSUE SPECIMEN FROM SKIN / Unknown 01/01/2024 3:33 AM CDT 01/02/2024 7:35 AM CDT Tanner Tse MD LAB - PATHOLOGY/CYTO LOGY ORDERABLES DERMATOPATHOLOGY LABORATORY [facility] - Department of Dermatology [address], [address] [phone] documented in this encounter Visit Diagnoses Not on filedocumented in this encounter Care Teams Piling Cutter Relationship Specialty Start Date End Date Mark Lang MD PCP - General 06/13/20 documented as of this encounter
--- OUTSIDE RECORDS SUMMARY | 2024-10-23 17:18 | XMS_ITS | Encounter Summary ---
Author Organization [facility] Address [address] [place] [address] Care Team Providers Care Evaluation Advisor Name Role Phone Mark Lang MD Primary Care Provider [phone] Encounter Details Date Type Department Care Team (Late st Contact Info) Description 04/13/2021 Prep for Procedure [facility]-Ad[facility] Testing [place] [address] Reginald Elizondo MD [address] [place] [address] Social History Tobacco Use Types Packs/Day Years [...] on file Legal Sex Male 9:14 AM GIRL FRIDAY Gender Identity Not on file Sexual Orientation [...] SPEC DESCRIPTION NASAL 04/17/20 12:21 PM CDT [facility] CORONAVIRUS SARS COV 2 PCR (RESP) NEGATIVE NEGATIVE 04/17/2021 9:19 PM CDT [facility] Comment: THE SARS-CoV-2 TEST HAS BEEN AUTHORIZED BY THE FDA UNDER AN EUA FOR USE BY AUTHORIZED LABORATORIES. PERFORMED BY NUCLEIC ACID AMPLIFICATION PCR FIRST TEST NO 04/17/2021 12:21 PM CDT [facility] EMPLOYED IN HEALTHCARE NO 04/17/2021 12:21 PM CDT [facility] SYMPTOMATIC DEFINED BY CDC NO 04/17/2021 12:21 PM CDT [facility] HOSPITALIZATION STATUS NO 04/17/2021 12:21 PM CDT [facility] PATIENT IN ICU NO 04/17/2021 12:21 PM CDT [facility] RESIDENT OF [facility] NO 04/17/2021 12:21 PM CDT [facility] NASAL STRUCTURE / Unknown 04/17/2021 9:50 AM CDT us Reginald Elizondo MD MICROBIOLOGY - GENERAL ORDERABLE S Final Result [facility] [address] [place] [address], [place] [phone] [facility] [address] [place] [address], [place] [phone] documented in this encounter Visit Diagnoses Diagnosis Preop examination- Primary Preoperative examination, unspecified documented in this encounter Additional Health Concerns Infection Onset Date Last Indicated Resolved Time COVID-19 Rule Out 04/17/2021 04/17/2021 04/17/2021 9:19 PM CDT documented as of this encounter Care Teams Evaluation Advisor Relationship Specialty Start Date End Date Mark Lang MD PCP - General FAMILY PRACTICE 11/15/20 documented as of this encounter
--- OUTSIDE RECORDS SUMMARY | 2024-10-23 17:18 | XMS_ITS | Patient Health Summary ---
Author Organization [facility] Address [address] [place] [address] Care Team Providers Care Apprentice Plumber Name Role Phone Mark Lang MD Primary Care Provider [phone] Note from [facility],non-owned Affiliates and Associated Physician Practices is amultiple site organization consisting of ambulatory clinics and hospital sitesin [place], [place], [place] and [place]. This disclosure is being madepursuant to the Care Everywhere program and may not contain all information available regarding this patient. Last updated 18.[facility] Allergies * Bee Venom(Swelling) * Beef Allergy(Swelling) [...] CDT Respiratory Rate 18 07/20/2020 8:49 AM MANAGER MANAGED BACKUP SERVICES Oxygen Saturation 99% 11/16/2020 9:57 AM CDT Inhaled Oxygen Concentration - - Weight 78 kg (172 lb) 11/16/2020 9:57 AM CDT Height 185.4 cm (6' 1 ) 11/16/2020 9:57 AM CDT Body Mass Index 22.69 11/16/2020 9:57 AM CDT Procedures * DERMATOPATHOLOGY(Performed 01/01/2024) Results * DERMATOPATHOLOGY (01/01/2024 3:33 AM CDT) Case Report Dermatopathology Report Case: [id number] Authorizing Provider: Tanner Tse MD Collected: 01/01/2024 03:33 AM Ordering Location: [facility] - Received: 01/02/2024 07:35 [...] characteristic determined by the Dermatopathology Laboratory at [facility], directed by Dr. Candy Boles. These tests need not be, and therefore are not, approved by the [place] Food and Drug Administration. The tests are used for clinical purposes. Billing Codes Specimen Charges Stain Charges 48485 1 4 4:30 PM CDT DERMATOPATHOLOGY LABORATORY Embedded Images 4 4:30 PM CDT DERMATOPATHOLOGY LABORATORY Pathology/Cytolo gy TISSUE SPECIMEN FROM SKIN / Unknown 01/01/2024 3:33 AM CDT 01/02/2024 7:35 AM CDT Tanner Tse MD LAB - PATHOLOGY/CYTO LOGY ORDERABLES DERMATOPATHOLOGY LABORATORY [facility] - Department of Dermatology [facility] Specialized Medicine [address] [place] [address], [address] [phone] Care Teams Apprentice Plumber Relationship Specialty Start Date End Date Mark Lang MD PCP - General 06/13/20
--- OUTSIDE RECORDS SUMMARY | 2024-10-23 17:18 | XMS_ITS | Clinical Summary ---
Author Organization [facility] [employer] Address [address] [place] [address] Care Team Providers Care Plastic Tile Setter Name Role Phone Mark Lang MD Primary Care Provider [phone] Source Comments [facility] [employer] [facility],non-owned Affiliates and Associated Physician Practices is amultiple site organization consisting of ambulatory clinics and hospital sitesin [place], [place], [place] and [place]. This disclosure is being madepursuant to the Care Everywhere program and may not contain all information available regarding this patient. Last updated 18.[facility] [facility] Allergies Active Allergy Reactions Criticality Noted Date [...] Respiratory Rate 18 07/20/2020 8:49 AM MANAGER LABOR RELATIONS Oxygen Saturation 99% 11/16/2020 9:57 AM CDT [...] age to complete this topic Care Teams Plastic Tile Setter Relationship Specialty Start Date End Date Mark Lang MD PCP - General 06/13/20
--- OUTSIDE RECORDS SUMMARY | 2024-10-23 17:19 | XMS_ITS | Clinical Summary ---
Author Organization [facility] Address [address], [facility] [address] [place] [address] Phone Care Team Providers Care Laceworker Name Role Phone Mark Lang Primary Care Provider [phone] Gallo Del Castillo MD Unavailable [phone] Allergies Active Allergy Reactions Criticality Noted Date [...] PSA 0.86 0.00 - 4.00 ng/mL [facility] Comment: Maude Paramagnetic Particle Chemiluminescent Immunoassay Method Blood specimen (specimen) 06/09/2019 10:50 AM CDT Mark Lang CHEMISTRY ORDERABLES Final Resul t [facility] [address] [place] [address], from Last 3 Months or Most Recently Relevant to Health Maintenance Insurance [facility] Care Teams Laceworker Relationship Specialty Start Date End Date LangMark [address] [place] [address] PCP - General Family Medicine 01/01/19 Gallo Del Castillo MD [address] [place] [address] Consulting Physician Oncology 01/01/19
--- OUTSIDE RECORDS SUMMARY | 2024-10-23 17:19 | XMS_ITS | Referral Summary ---
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
[2024-10-23] MEDS: ACETAMINOPHEN 500 MG TABLET 1000 MG PO (17:29)
[2024-10-23] MEDS: SODIUM CHLORIDE 0.9% IV 1,000 ML 999 ML IV CONT (17:30)
[2024-10-23 17:59] LABS: Basophils Percent Auto 0.4 % (0.2-1.2); Hematocrit 41.4 % (42.0-52.0); Hemoglobin 14.6 g/dL (14.0-18.0); Immature Granulocyte Absolute 0.01 K/mm3 (0.00-0.031); Immature Granulocyte Percent A 0.2 % (0-0.5); Immature Platelet Fraction Pct 3.7 % (0.9-11.2); Lymphocytes Absolute Auto 1.33 K/mm3 (0.9-3.2); Lymphocytes Percent Auto 24.1 % (18.3-44.2); Mean Corpuscular HGB Conc 35.3 g/dl (32-36); Mean Corpuscular Hemoglobin 32.5 pg (26-34); Mean Corpuscular Volume 92.2 fl (80-100); Mean Platelet Volume 9.7 fl (7.4-10.4); Monocytes Absolute Auto 0.5 K/mm3 (0.1-0.6); Monocytes Percent Auto 9.2 % (2.6-8.5); Neutrophils Absolute Auto 3.7 K/mm3 (1.3-6.7); Neutrophils Percent Auto 66.1 % (45.5-73.1); Platelet Count Result 113 k/mm3 (150-375); Red Blood Count 4.49 M/mm3 (4.6-6.20); Red Cell Distribution Width 12.4 % (11.5-14.5); White Blood Count 5.5 K/mm3 (4.5-10.0)
[2024-10-23 18:10] LABS: Alanine Aminotransferase 27 U/L (6-50); Albumin Level 3.9 g/dL (3.5-5.1); Alkaline Phosphatase 82 U/L (38-126); Anion Gap 9 mmol/L (4-12); Aspartate Amino Transferase 32 U/L (17-59); Bilirubin,Total 0.6 mg/dL (0.2-1.3); Blood Urea Nitrogen 14 mg/dL (9-20); Calcium 8.6 mg/dL (8.4-10.2); Carbon Dioxide 24 mmol/L (22-30); Chloride 102 mmol/L (98-107); Estimated CRCL calculation 76 ml/min; Estimated Glomerular Filt Rate > 60; Glucose 80 mg/dL (65-110); Potassium 3.7 mmol/L (3.4-5.0); Sodium 135 mmol/L (137-145)
[2024-10-23 19:00] LABS: Add Urine Microscopic? YES; Appearance Urine Cloudy (Clear); Bacteria Urine None Seen /hpf; Bilirubin Urine Negative (Negative); Blood Urine Trace (Negative); Color Urine Dark Yellow (Yellow); Glucose Urine UA Negative (Negative); Ketones Urine 3+ mg/dL (Negative); Leukocyte Esterase Ur Negative LEU/UL (Negative); Mucus Urine Present /lpf; Need Manual Microscopic Reviewed; Nitrate Urine Negative (Negative); Protein Urine 1+ mg/dL (Negative); RBC Urine 0-2 /hpf (0-2); Specific Grav Ur 1.033 (1.001-1.035); Squamous Epithelial Cell Urine Few /hpf (Few); Urobilinogen Urine 0.2 mg/dL (<2.0); WBC Urine 0-5 /hpf (0-3); pH Urine 5.5 (5.0-9.0)
== END 2024-10-23 19:18 | disposition home or self-care (01) ==
PROVIDERS: Emergency Provider Physician Assistant; PCP Emergency Medicine
DX: J10.1 Influenza due to other identified influenza virus with other respiratory manifestations (principal); R53.1 Weakness; R10.9 Unspecified abdominal pain; F17.210 Nicotine dependence, cigarettes, uncomplicated
CPT/HCPCS: 36415; 80053; 81001; 85025; 85055; 93005; 96360; 99284; A9270; J7030

== ENCOUNTER 2024-11-18 00:05 | Day surgery (SDC) | payer BC, SELFPAY ==
[2024-11-10 09:21] VITALS: BMI 21.0
--- OUTSIDE RECORDS SUMMARY | 2024-11-18 00:08 | XMS_ITS | Clinical Summary ---
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 [id number] [place] [id number] Care Teams Photo Optics Technician Relationship Specialty Start Date End Date Mark Lang MD [address] [place] [address] PCP - General Family Medicine 01/19/21
--- OUTSIDE RECORDS SUMMARY | 2024-11-18 00:08 | XMS_ITS | Data Portability ---
Author Organization [facility], Main Office Address [address] [place] [address] Care Team Providers Care Front Office Developer Name Role Phone SARA RAFAELA Primary Care Provider RAFAELA RUIZ Referring Provider [phone] Assessment Encounter Date Assessment Date Assessment LastModified by Organization Details LastModified Time 02/18/2024 02/18/2024 63 year old male present for his left knee. Reports pain for the past month, denies any injury. He had sharp pain walking on uneven ground, worse with activities. He has been taking meloxicam and hydrocodone without improvement. Denies prior injury. 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 Smokes 1 ppd ROS per questionnaire [...] DO Not Attach Compendium, Do Not Delete/merge, [address] 11:11:43 Surgeries None recorded. Imaging XR, knee 2023 024 [facility], [address], [place], [address], 4 09:01:36 Medication Orders Marcaine (PF) 0.5 % (5 mg/mL) injection solution [address] [id number], [address] [facility], [place], [place], [phone], 12:15:00 Kenalog 10 mg/mL suspension for injection [address] [id number], [address] , [place], [place], [phone], 12:15:00 Patient TargetsNo targets recorded. Patient InstructionsNo instructions recorded. Reason for Referral None Reported. Results Created Date Observation Date Name Description Value Unit Range Abnormal Flag Note LastModifiedBy Organization Detail LastModifiedTime 02/18/20 24 XR, knee No observ ation record ed. [email or web address] [facility] [address], [place], [address], 02/18/2024 10:39:50 Result Notes None recorded. Problems Name Problem SNOMED Code Status Onset Date Resolution Date Notes Provider Name and Address Organization Details Recorded Time Asthma 304554074 Active Not Available [facility] 20:21:28 Pain of left knee joint 848070335165617 Active 2023 JUAN Briones, [employer] 10:39:47 Problem Notes None recorded. Procedures Surgical History Date Name Laterality Status Provider Name and Address Organization Details Recorded Time Ortho - Cortisone Injection completed Ba Good MD [address] [facility], [facility] [address], [place], [address], [employer] 02/20/2024 15:08:44 Imaging Results Imaging Date Name Status LastModified by Organiz ation Details LastModified Time 02/18/2024 XR, knee completed [email or web address] [facility] [place] [address], [place], [address], 02/18/2024 10:39:50 Procedure Notes None recorded. Medical Equipment None Reported. Allergies Allergen ID Allergen Name Allergen Category Reaction Reaction Severity Criticality Documentation Date Start Date Code Code System Note Provider Name and Address Organization Details Recorded Time 01987 latex environme nt,medica tion Not available Not available Not available 10/16/2022 60652 91 RxNorm Not Available [employer] 20:22:53 Medications [...] Updated DateTime 02/18/2024 185.42 cm 21.8 kg/m2 90716.74 g JUAN Briones [employer] 02/18/2024 10:36:11 Social History Question Answer Notes LastModified by Organizat ion Details LastModified Time Tobacco Smoking Status Never Smoker JUAN Briones null [employer] 02/18/2024 10:37:35 What Is Your Level Of Alcohol Consumption? None [email or web address] Information not available 02/18/2024 Sex: Unknown Functional Status None recorded. Mental Status None recorded. Family History Relationship Description Onset Age of this Age Resolved Age Notes LastModified by Organization Details LastModified Time Maternal Grandmother Diabetes mellitus [email or web address] Not available 2023 10:37:24 Notes:cancer= brother Medical History No medical history recorded. Past Encounters Encounter ID Performer Location Encounter Start Date Encounter Closed Date Diagnosis/Indication Diagnosis SNOMED-CT Code Diagnosis ICD10 Code Diagnosis Note [id number] Ba Good MD [facility] [address] [place] [address] 02/18/2024 10:18:05 02/18/2024 11:16:12 Pain of left knee joint 3875806800 [address]6054 M25.562 Health Concerns Section Related Observation LastModified by Organization Detai ls LastModified Time None Recorded Concern Status LastModified by Organization Details LastModified Time None Recorded Advance Directives Directive None Recorded Payers Encounter Date Sequence Insurance Name Policy Number Policy Devi Covered Member ID Devi Member ID Guarantor Name 02/18/2024 1 [facility] [id number] Shawna Zamora [id number] Foreign Zamora
--- OUTSIDE RECORDS SUMMARY | 2024-11-18 00:08 | XMS_ITS | Encounter Summary ---
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 PERFORMED BY NUCLEIC ACID AMPLIFICATION PCR FIRST TEST NO 04/17/2021 12:21 PM CDT [facility] EMPLOYED IN HEALTHCARE NO 04/17/2021 12:21 PM CDT [facility] SYMPTOMATIC DEFINED BY CDC NO 04/17/2021 12:21 PM CDT [facility] HOSPITALIZATION STATUS NO 04/17/2021 12:21 PM CDT [facility] PATIENT IN ICU NO 04/17/2021 12:21 PM CDT [facility] RESIDENT OF [facility] NO 04/17/2021 12:21 PM CDT [facility] NASAL STRUCTURE / Unknown 04/17/2021 9:50 AM CDT us Reginald Elizondo MD MICROBIOLOGY - GENERAL ORDERABLE S Final Result [facility] [address] [place] [address], [place] [phone] [facility] [address] [place] [address], [place] [phone] documented in this encounter Visit Diagnoses Diagnosis Preop examination- Primary Preoperative examination, unspecified documented in this encounter Additional Health Concerns Infection Onset Date Last Indicated Resolved Time COVID-19 Rule Out 04/17/2021 04/17/2021 04/17/2021 9:19 PM CDT documented as of this encounter Care Teams Senior Research Scientist Relationship Specialty Start Date End Date Mark Lang MD PCP - General FAMILY PRACTICE 11/15/20 documented as of this encounter
--- OUTSIDE RECORDS SUMMARY | 2024-11-18 00:08 | XMS_ITS | Clinical Summary ---
Author Organization [facility] Address [address], [facility] [address] [place] [address] Phone Care Team Providers Care Class C Truck Driver Name Role Phone Mark Lang Primary Care Provider [phone] Gallo Del Castillo MD Unavailable [phone] Allergies Active Allergy Reactions Criticality Noted Date [...] PSA 0.86 0.00 - 4.00 ng/mL CANCER SCREW MACHINE OPERATOR [facility] Comment: Maude Paramagnetic Particle Chemiluminescent Immunoassay Method Blood specimen (specimen) 06/09/2019 10:50 AM CDT Mark Lang CHEMISTRY ORDERABLES Final Resul t CANCER SCREW MACHINE OPERATOR [facility] [place] [address], from Last 3 Months or Most Recently Relevant to Health Maintenance Insurance [facility] Care Teams Class C Truck Driver Relationship Specialty Start Date End Date Mark Lang [address] [place] [address] PCP - General Family Medicine 01/01/19 Gallo Del Castillo MD [address] [place] [address] Consulting Physician Oncology 01/01/19
--- OUTSIDE RECORDS SUMMARY | 2024-11-18 00:08 | XMS_ITS | Encounter Summary ---
Author Organization [facility] Address [address] [place] [address] Care Team Providers Care Transportation Economics Teacher Name Role Phone Mark Lang MD Primary Care Provider [phone] Encounter Details Date Type Department Care Team (Late st Contact Info) Description 01/01/2024 Lab Requisition [facility] DermPath Lab [address] [place] [id number] Tanner Tse MD [address] [place] [address] Social History Tobacco Use Types [...] AM CDT) Case Report Dermatopathology Report Case: [id number] Authorizing Provider: Tanner Tse MD Collected: 01/01/2024 03:33 AM Ordering Location: [facility] - Received: 01/02/2024 07:35 AM DermPath [...] purposes. Billing Codes Specimen Charges Stain Charges 48793 1 4:30 PM CDT DERMATOPATHOLOGY LABORATORY Embedded Images 4:30 PM CDT DERMATOPATHOLOGY LABORATORY Pathology/Cytolo gy TISSUE SPECIMEN FROM SKIN / Unknown 01/01/2024 3:33 AM CDT 01/02/2024 7:35 AM CDT Tanner Tse MD LAB - PATHOLOGY/CYTO LOGY ORDERABLES DERMATOPATHOLOGY LABORATORY [facility] - Department of Dermatology [address] [phone] documented in this encounter Visit Diagnoses Not on filedocumented in this encounter Care Teams Transportation Economics Teacher Relationship Specialty Start Date End Date Mark Lang MD PCP - General 06/13/20 documented as of this encounter
--- OUTSIDE RECORDS SUMMARY | 2024-11-18 00:08 | XMS_ITS | Clinical Summary ---
Author Organization [facility] Address [address] [place] [address] Care Team Providers Care Roll Former Name Role Phone Mark Lang MD Primary Care Provider [phone] Source Comments [facility],non-owned Affiliates and Associated Physician Practices is amultiple site organization consisting of ambulatory clinics and hospital sitesin [place], [place], [place]. This disclosure is being madepursuant to the Care Everywhere program and may not contain all information available regarding this patient. Last updated 18.[facility] Allergies Active Allergy Reactions Criticality Noted Date [...] CDT Respiratory Rate 18 07/20/2020 8:49 AM MICROFILM CLERK Oxygen Saturation 99% 11/16/2020 9:57 AM CDT [...] to complete this topic MENINGOCOCCAL (Group B) VACC INE SHARED DECISION-MAKING Aged Out No longer eligibl e based on patient's age to complete this topic MENINGOCOCCAL GROUPS A/C/Y/W VACCINE Aged Out No longer eligible b ased on patient's age to complete this topic Care Teams Roll Former Relationship Specialty Start Date End Date Mark Lang MD PCP - General 06/13/20
--- OUTSIDE RECORDS SUMMARY | 2024-11-18 00:08 | XMS_ITS | Referral Summary ---
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
--- OUTSIDE RECORDS SUMMARY | 2024-11-18 00:08 | XMS_ITS | Clinical Summary ---
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
[2024-11-18 10:09] VITALS: BP 110/73; PULSE 77; RESP 18; TEMP 36.1; O2SAT 99; BMI 21.2
[2024-11-18] MEDS: LACTATED RINGERS 1,000 ML 150 ML IV CONT (10:20)
--- NOTE | 2024-11-18 10:42 | P.PNAN_ITS ---
Anes - Initial Pre Proc Eval Procedure: Operation Date: 11/18/24 11:15 Proposed Procedures p Esophagogastroduodenoscopy - Clement Isaacs MD Date/Time: 11/18/24 10:42 Surgeon: Clement Isaacs MD Pre Op Diagnosis: GERD, Abdominal pain Patient Data Age: 63 Gender: M Height: 1.85 m Weight: 73 kg Last Vital Signs Temp 97.0 F L 11/18/24 10:09 Pulse 77 11/18/24 10:09 Resp 18 11/18/24 10:09 BP 110/73 11/18/24 10:09 Pulse Ox 99 11/18/24 10:09 O2 Del Method Room Air 11/18/24 10:09 Allergies Allergy/AdvReac Type Severity Reaction Status Date / Time latex Allergy Intermediate Rash Verified 11/18/24 10:08 Home Medications ?Medication ?Instructions ?Recorded ?Confirmed ?Type omeprazole 10 mg capsule,delayed 10 mg PO DAILY #30 caps 10/09/24 11/18/24 Rx release ondansetron 4 mg disintegrating 4 mg PO Q8H PRN nausea and 10/09/24 11/10/24 Rx tablet vomiting #15 tabs hydrocodone 7.5 mg-acetaminophen 1 tablet PO Q6H PRN pain 10/23/24 11/10/24 History 325 mg tablet Patient hx anesthesia problems: none Family hx anesthesia problems: none Results Review: All pre-operative results and documents have been reviewed as part of the pre- operative evaluation. [facility] Past Medical History Medical History Arthritis of ankle, left, degenerative Arthritis History of skin cancer Weight loss, unintentional Acute lateral meniscus tear of left knee Acute medial meniscus tear of left knee Colon polyp IBS (irritable bowel syndrome) Ulnar club hand Carpal tunnel syndrome Surgical History Surgical History Hx of cholecystectomy Family History Family History Unknown Arthritis Cancer Diabetes mellitus Social History Social History Smoking packs per day: 1 Smoking cigarettes per day: 20.0 Years smoked: 40 Smoking pack-years: 40.00 Smoking status: Current every day smoker Tobacco type: cigarettes Alcohol intake: never Substance use: never Substance use type: does not use Other substance usage details: OCC. Living arrangements: with family Occupation/Education: occupation Additional occupation/education comments: [employer] Gender identity (if verbalized by the patient): Male Spiritual care concerns: No Anes - Eval Final PreProcedure Day of Procedure 11/18/24 10:42 Patient weight: normal Heart: regular rate and rhythm Lungs: clear to auscultation Airway: Mallampati scale class II Neurological: alert and oriented Last oral intake: >/= 8 hours ASA classification: II Emergent: no Anesthetic plan: proceed Anesthesia type and monitoring: general GIVS and standard monitoring Results Review: All pre-operative results and documents have been reviewed as part of the pre- operative evaluation. Informed Consent: The patient's anesthetic plan and its attendant risks and benefits were discussed with the patient/family/POA. Questions were solicited and answers provided to the satisfaction of the patient/family/POA.
--- NOTE | 2024-11-18 10:52 | PM.HPGS ---
History of Present Illness History of Present Illness Consent: Risks, benefits, and alternatives have been discussed and questions answered. Patient agrees to proceed with procedure. Chief complaint: GERD, Abdominal pain Narrative: Foreign Zamora is a 63 year old male with nausea and upper abdominal pain, here for egd Review of Systems Review of Systems: All systems reviewed & are unremarkable except as noted in HPI and below PMFSH Past Medical History Medical History Arthritis of ankle, left, degenerative Arthritis History of skin cancer Weight loss, unintentional Acute lateral meniscus tear of left knee Acute medial meniscus tear of left knee Colon polyp IBS (irritable bowel syndrome) Ulnar club hand Carpal tunnel syndrome Surgical History Surgical History Hx of cholecystectomy Family History Family History Unknown Arthritis Cancer Diabetes mellitus Social History Social History Smoking packs per day: 1 Smoking cigarettes per day: 20.0 Years smoked: 40 Smoking pack-years: 40.00 Smoking status: Current every day smoker Tobacco type: cigarettes Alcohol intake: never Substance use: never Substance use type: does not use Other substance usage details: OCC. Living arrangements: with family Occupation/Education: occupation Additional occupation/education comments: [employer] Gender identity (if verbalized by the patient): Male Spiritual care concerns: No Meds Home Medications and Allergies Home Medications ?Medication ?Instructions ?Recorded ?Confirmed ?Type omeprazole 10 mg capsule,delayed 10 mg PO DAILY #30 caps 10/09/24 11/18/24 Rx release ondansetron 4 mg disintegrating 4 mg PO Q8H PRN nausea and 10/09/24 11/10/24 Rx tablet vomiting #15 tabs hydrocodone 7.5 mg-acetaminophen 1 tablet PO Q6H PRN pain 10/23/24 11/10/24 History 325 mg tablet Allergies Allergy/AdvReac Type Severity Reaction Status Date / Time latex Allergy Intermediate Rash Verified 11/18/24 10:08 Vital Signs Vital Signs - 24 hr 11/18/24 10:09 Temperature 97.0 F L Pulse Rate 77 Respiratory Rate 18 Blood Pressure 110/73 Pulse Oximetry 99 Oxygen Delivery Room Air Exam Const: General: comfortable and no acute distress HENMT: Face/Nose/Sinus: Normal nares present Eyes: General: appearance normal, both eyes and all related structures Neck: Neck: no JVD Resp: Auscultation: clear to auscultation bilaterally Cardio: Rate: regular rate Rhythm: regular rhythm GI: Inspection: non-distended GI Palp: Yes Soft to palpation Skin: General skin exam: normal color Neuro: General: gait normal Speech: normal speech Extrem: General: normal to inspection Psych: Mental Status: mental status grossly normal Assessment and Plan Assessment and plan (1) Abdominal pain: Code(s): R10.9 - Unspecified abdominal pain Status: Inactive Assessment and Plan: egd with bx
[2024-11-18 11:04] VITALS: BP 94/63; PULSE 72; RESP 22; O2SAT 98
[2024-11-18 11:14] VITALS: BP 103/69; PULSE 71; RESP 22; O2SAT 98
[2024-11-18 11:24] VITALS: BP 113/69; PULSE 66; RESP 17; O2SAT 100
== END 2024-11-18 11:39 | disposition home or self-care (01) ==
PROVIDERS: PCP Emergency Medicine; Visit Provider Internal Medicine Gastroenterology
PROC: 0DJ08ZZ Inspection of Upper Intestinal Tract, Via Natural or Artificial Opening Endoscopic (ICD-10-PCS; CPT 43239; principal; 2024-11-18 11:15)
DX: K29.70 Gastritis, unspecified, without bleeding (principal); K21.9 Gastro-esophageal reflux disease without esophagitis; R10.13 Epigastric pain; F17.210 Nicotine dependence, cigarettes, uncomplicated
CPT/HCPCS: 43239; 88305; J2003; J2704; J7120

== ENCOUNTER 2024-12-30 05:40 | Outpatient (CLI) | payer BC, SELFPAY ==
--- NOTE | 2024-12-22 11:44 | SUR.PREOP ---
Instructions for [facility] capsule endoscopy being mailed to patient. Advised him to let me know if he does not receive them in a timely manner.
--- OUTSIDE RECORDS SUMMARY | 2024-12-30 05:42 | XMS_ITS | Continuity of Care Document ---
Author Organization [facility] Address [address] [place] [address] Phone Care Team Providers Care Applied Psychology Teacher Name Role Phone Jakub PT,MPT,ATC, Keven Unavailable Unavai lable Procedures Procedure Date Neuromuscular Re-Ed Therapeutic Exercise Therapeutic Activities Neuromuscular Re-Ed Therapeutic Exercise PT Evaluation Moderate Complexity Therapeutic Exercise Advance Directives Directive Yes / No Effective Date File Name No Information Encounters Encounter Description Practice Location Reason(s) For Visit Diagnoses Date Provider Providers Copied on Encounter [facility], [place], [place], [address], tel:[phone] [place] No Information 0 Jakub Baca. , [place], [place]. [facility], [place], [place], [address], tel:[phone] [place] No Information 0 Jakub Baca. , [place], [place]. Referring Provider: Mark Lang, [address], [place], [address]. tel:[phone] [facility], [place], [place], [address], tel:[phone] [place] No Information 0 Jakub Baca. , [place], [place]. Referring Provider: Zachary Chavarria [address], [place], [address]. tel:[phone] [facility], [place], [place], [address], [place] tel:[phone] [place] No Information 0 Dada Middleton. . Referring Provider: Mark Lang, [address] [facility] [address], [place], [address]. tel:[phone] Family History Family Member Type Diagnosis Age At Onset No Information Payers Payer name Insurance type Covered libertarian ID Ros tovar(s) [facility] [id number] Social History Type Description Quantity Date Captured [...]
--- OUTSIDE RECORDS SUMMARY | 2024-12-30 05:42 | XMS_ITS | Encounter Summary ---
Author Organization [facility] Address [address] [place] [address] Care Team Providers Care Correction Officer Supervisor Name Role Phone Mark Lang MD Primary Care Provider [phone] Encounter Details Date Type Department Care Team (Late st Contact Info) Description 01/01/2024 Lab Requisition [facility] Derm[facility] Lab [address] [facility] [place] [id number] Tanner Tse MD [address] [place] [address] Social History Tobacco Use Types Packs/Day Years Used Date Smoking Tobacco: Every Day Cigarettes Smokeless Tobacco: Never Alcohol Use Standard Drinks/Week Comments Not Currently 0 (1 standard drink = 0.6 oz pur e alcohol) Sex and Gender Information Value Date Recorded Sex Assigned at Not on file 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 Gender Identity Not on file Sexual Orientation Not on file documented as of this encounter Plan of Treatment Not on file documented as of this encounter Procedures Procedure Name Priority Date/Time Associated Diagnosis Comments DERMATOPATHOLOGY Routine 01/01/2024 3:33 AM CDT documented in this encounter Results * DERMATOPATHOLOGY (01/01/2024 3:33 AM CDT) Case Report Dermatopathology Report Case: [id number] Authorizing Provider: Tanner Tse MD Collected: 01/01/2024 03:33 AM Ordering Location: [facility] - Received: 01/02/2024 07:35 AM [...] characteristic determined by the Dermatopathology Laboratory at [facility], directed by Dr. Candy Boles. These tests need not be, and therefore are not, approved by the [place] Food and Drug Administration. The tests are used for clinical purposes. Billing Codes Specimen Charges Stain Charges 33641 1 4:30 PM CDT DERMATOPATHOLOGY LABORATORY Embedded Images 4:30 PM CDT DERMATOPATHOLOGY LABORATORY Pathology/Cytolo gy TISSUE SPECIMEN FROM SKIN / Unknown 01/01/2024 3:33 AM CDT 01/02/2024 7:35 AM CDT us Tanner Tse MD LAB - PATHOLOGY/CYTOLOGY ORDERAB LES Final Result DERMATOPATHOLOGY LABORATORY [facility] - Department of Dermatology [address] [phone] documented in this encounter Visit Diagnoses Not on filedocumented in this encounter Care Teams Correction Officer Supervisor Relationship Specialty Start Date End Date Mark Lang MD PCP - General 06/13/20 documented as of this encounter
--- OUTSIDE RECORDS SUMMARY | 2024-12-30 05:42 | XMS_ITS | Continuity of Care Document ---
Author Organization [facility] Address [address] [address] [place] [address] Phone Care Team Providers Care Wheel Filler Name Role Phone Mark Lang MD Unavailable Unavailable Allergies, Adverse Reactions, Alerts Substance Reaction Status Criticality latex Active No Information Medications Medication Instructions Dosage Effective Dates (start - stop) Status Comments Remeron 15 mg tablet take 1 tablet by oral route every day before bedtime 15 MG - Active avoid driving or operate machines hydrocodone 7.5 mg-acetaminophen 325 mg tablet take [...] Providers Copied on Encounter OFFICE/OUTPA TIENT VISIT, [facility], [address], [address], [place] tel:[phone] [facility] abd pain1 (chief complaint) weight loss1 (chief complaint) anxiety1 (chief complaint) Generalized Anxiety DisorderAbnormal weight lossGeneralized abdominal pain Nov- 5 Rickey Flores. [address], [address] , [place]. tel:[phone] Referring Provider: Zachary Chavarria [facility] [place], [address]. tel:[phone] OFFICE/OUTPA TIENT VISIT, [facility], [address], [address], [place] tel:[phone] [facility] flu1 (chief complaint) low platelet1 (chief complaint) weight loss1 (chief complaint) depression 1 (chief complaint) Abnormal weight lossGeneralized Anxiety DisorderThrombocyto peniaViral infection Oct- 5 Rickey Muñoz [address], [place], [place], [address] , [place]. tel:[phone] Referring Provider: Zachary Chavarria [address], [place], [place], [address]. tel:[phone] OFFICE/OUTPA TIENT VISIT, [facility], [address], [place], [place], [address], [place] tel:[phone] [facility] abd pain1 (chief complaint) back pain1 (chief complaint) Generalized abdominal painGERD w/o esophagitisPersonal history of nicotine dependenceChronic pain syndrome Sep- 5 Rickey Flores. [address], [place], [place], [address] , [place]. tel:[phone] Referring Provider: Mark Lang, [address], [place], [place], [address]. tel:[phone] OFFICE/OUTPA TIENT VISIT, [facility], [address], [place], [place], [address], [place] tel:[phone] [facility] pain (chief complaint) basal cell (chief complaint) knee pain1 (chief complaint) Chronic pain syndromePain in left kneeNevus, non-neoplastic Brant- 4 Rickey Flores. [address], [place], [place], [address] , [place]. tel:[phone] Referring Provider: Mark Lang [address], [place], [place], [address]. tel:[phone] OFFICE/OUTPA TIENT VISIT, [facility], [address], [place], [place], [address], [place] tel:[phone] [facility] anxiety1 (chief complaint) colon polyp1 (chief complaint) pain (chief complaint) nevus1 (chief complaint) Polyp of colonGeneralized Anxiety DisorderNevus, non-neoplasticChron ic pain syndrome 4 Rickey Flores. [address], [place], [place], [address] , [place]. tel:[phone] Referring Provider: Zachary Chavarria [address], [place], [place], [address]. tel:[phone] OFFICE/OUTPA TIENT VISIT, [facility], [address], [place], [place], [address], [place] tel:[phone] [facility] anxietty1 (chief complaint) thyroid nodule1 (chief complaint) colon polyp1 (chief complaint) pain (chief complaint) Polyp of colonThyroid noduleChronic pain syndromeGeneralized Anxiety Disorder 0- 4 Rickey Flores. [address], [place], [place], [address] , [place]. tel:[phone] Referring Provider: Zachary Chavarria [address], [place], [place], [address]. tel:[phone] OFFICE/OUTPA TIENT VISIT, EST [facility], [address], [place], [place], [address], [place] tel:[phone] [facility] glucose1 (chief complaint) thyroid nodule1 (chief complaint) polyp1 (chief complaint) anxiety1 (chief complaint) Chronic pain syndromeGeneralized Anxiety DisorderPolyp of colonThyroid noduleHyperglycemia 3 Rickey Flores. [address], [place], [place], [address] , [place]. [phone] Referring Provider: Zachary Chavarria [address], [place], [place], [address]. tel:[phone] PREV VISIT, EST, AGE 40-64 [facility], [address], [place], [place], [address], [place] tel:[phone] [facility] physical (chief complaint) Encounter for general adult medical exam w abnormal findingsAbnormal weight lossPolyp of colonChronic pain syndromeGeneralized Anxiety Disorder 3 Rickey Flores. [address], [place], [place], [address] , [place]. tel:[phone] Referring Provider: Zachary Chavarria [address], [place], [place], [address]. tel:[phone] PREV VISIT, EST, AGE 40-64 [facility], [address], [place], [place], [address], [place] tel:[phone] [facility] physical (chief complaint) Encounter for general adult medical exam w abnormal findingsBPH w/o LUTSThyroid noduleGERD w/o esophagitisDisorder of iron metabolism, unspecifiedPain in left kneePolyp of colon 2 Rickey Flores. [address], [place], [place], [address] , [place]. tel:[phone] Referring Provider: Zachary Chavarria [address], [place], [place], [address]. tel:[phone] OFFICE/OUTPA TIENT VISIT, [facility], [address], [place], [place], [address], [place] tel:[phone] [facility] GERD1 (chief complaint) BPH1 (chief complaint) thyroid nodule1 (chief complaint) neck swelling1 (chief complaint) tobacco1 (chief complaint) BPH w/o LUTSIrritable bowel syndromeTobacco useThyroid noduleSebaceous cyst 1 Rickey Muñoz [address], [place], [place], [address] , [place]. tel:[phone] Referring Provider: Zachary Chavarria [address], [place], [place], [address]. tel:[phone] OFFICE/OUTPA TIENT VISIT, [facility], [address], [place], [place], [address], [place] tel:[phone] [facility] pain (chief complaint) abd pain1 (chief complaint) BPH1 (chief complaint) GERD w/o esophagitisBPH w/o LUTSOther spondylosis, cervical regionIrritable bowel syndrome 1 Rickey Muñoz [address], [address], [place], [place], [address] , [place]. tel:[phone] Referring Provider: Zachary Chavarria [address], [place], [place], [address]. tel:[phone] OFFICE/OUTPA TIENT VISIT, [facility], [address], [place], [place], [address], [place] tel:[phone] [facility] tobacco1 (chief complaint) neck pain (chief complaint) GERD1 (chief complaint) weigh tloss (chief complaint) Other spondylosis, cervical regionGERD w/o esophagitisAbnormal weight lossTobacco use 0 Rickey Flores. [address], [address], [place], [place], [address] , [place]. tel:[phone] Referring Provider: Zachary Chavarria [address], [place], [place], [address]. tel:[phone] OFFICE/OUTPA TIENT VISIT, [facility], [address], [place], [place], [address], [place] tel:[phone] [facility] neck pain1 (chief complaint) tobacco (chief complaint) colon polyp1 (chief complaint) Other spondylosis, cervical regionRadiculopathy , cervical regionTobacco usePolyp of colon 0 Rickey Flores. [address], [place], [place], [address] , [place]. tel:[phone] Referring Provider: Zachary Chavarria [address], [place], [place], [address]. tel:[phone] OFFICE/OUTPA TIENT VISIT, [facility], [address], [place], [place], [address], [place] tel:[phone] [facility] neck pain1 (chief complaint) LDCT (chief complaint) ferritin1 (chief complaint) Chronic pain syndromeDisorder of iron metabolism, unspecifiedTobacco use Apr-0 0 Rickey Flores. [address], [place], [place], [address] , [place]. tel:[phone] Referring Provider: Zachary Chavarria [address], [place], [place], [address]. tel:[phone] OFFICE/OUTPA TIENT VISIT, [facility], [address], [place], [place], [address], [place] tel:[phone] [facility] neck pain1 (chief complaint) Other spondylosis, cervical regionRadiculopathy , cervical region 0 Rickey Flores. [address], [place], [place], [address] , [place]. tel:[phone] Referring Provider: Zachary Chavarria [address], [place], [place], [address]. tel:[phone] OFFICE/OUTPA TIENT VISIT, [facility], [address], [place], [place], [address], [place] tel:[phone] [facility] pain1 (chief complaint) GERD1 (chief complaint) GERD w/o esophagitisOther spondylosis, cervical region 0 Rickey Flores. [address], [place], [place], [address] , [place]. [phone] Referring Provider: Zachary Chavarria [address], [place], [place], [address]. tel:[phone] OFFICE/OUTPA TIENT VISIT, [facility], [address], [place], [place], [address], [place] tel:[phone] [facility] BPH1 (chief complaint) ferritin1 (chief complaint) neck pain1 (chief complaint) GERD1 (chief complaint) anxiety1 (chief complaint) HematuriaGERD w/o esophagitisDisorder of iron metabolism, unspecifiedOther spondylosis, cervical regionTobacco useGeneralized Anxiety Disorder 0 Rickey Flores. [address], [place], [place], [address] , [place]. [phone] Referring Provider: Zachary Chavarria [address], [place], [place], [address]. tel:[phone] OFFICE/OUTPA TIENT VISIT, [facility], [address], [place], [place], [address], [place] tel:[phone] [facility] blood in urine1 (chief complaint) weight loss1 (chief complaint) ferritin1 (chief complaint) neck pain1 (chief complaint) anxiety1 (chief complaint) HematuriaBPH w/o LUTSDisorder of iron metabolism, unspecifiedCervical giaSebaceous cystGeneralized Anxiety Disorder 0 Rickey Sh[address], [place], [place], [address] , [place]. tel:[phone] Referring Provider: Zachary Chavarria [address], [place], [place], [address]. tel:[phone] OFFICE/OUTPA TIENT VISIT, EST [facility], [address], [place], [place], [address], [place] tel:[phone] [facility] anxiety1 (chief complaint) ferritin (chief complaint) mcv (chief complaint) Disorder of iron metabolism, unspecifiedOther specified disease of bloodGeneralized Anxiety DisorderPolyp of colon 9 Rickey Muñoz [address], [address], [place], [place], [address] , [place]. tel:[phone] Referring Provider: Zachary Chavarria [address], [place], [place], [address]. tel:[phone] PREV VISIT, EST, AGE 40-64 [facility], [address], [place], [place], [address], [place] tel:[phone] [facility] Physical (chief complaint) Encntr for general adult medical exam w/o abnormal findings 9 Rickey Crawford, [address], [place], [place], [address] , [place]. tel:[phone] Referring Provider: Zachary Chavarria [address], [place], [place], [address]. tel:[phone] OFFICE/OUTPA TIENT VISIT, EST [facility], [address], [place], [place], [address], [place] tel:[phone] [facility] abd pain1 (chief complaint) WBC (chief complaint) anxiety1 (chief complaint) Secondary polycythemiaAbdomin al painGeneralized Anxiety DisorderLeukocytosi sHematuriaHyperglyc emiaBPH w/o LUTS 9 Rickey Flores. [address], [place], [place], [address] , [place]. tel:[phone] Referring Provider: Zachary Chavarria [address], [place], [place], [address]. tel:[phone] OFFICE/OUTPA TIENT VISIT, [facility], [address], [place], [place], [address], [place] tel:[phone] [facility] anxiety1 (chief complaint) Generalized Anxiety DisorderAdjustment disorder w/ depressed mood 9 Rickey Flores. [address], [place], [place], [address] , [place]. tel:[phone] Referring Provider: Zachary Chavarria [address], [place], [place], [address]. tel:[phone] OFFICE/OUTPA TIENT VISIT, [facility], [address], [place], [place], [address], [place] tel:[phone] [facility] polycythem ia1 (chief complaint) tobacco1 (chief complaint) back pain1 (chief complaint) Secondary polycythemiaChronic pain syndromeAlcohol dependence, uncomplicatedTobacc o use 9 Rickey Muñoz [address], [address], [place], [place], [address] , [place]. tel:[phone] Referring Provider: Zachary Chavarria [address], [place], [place], [address]. tel:[phone] OFFICE/OUTPA TIENT VISIT, [facility], [address], [place], [place], [address], [place] tel:[phone] [facility] HTN (chief complaint) mole1 (chief complaint) GERD1 (chief complaint) back pain1 (chief complaint) Essential (primary) hypertensionChronic pain syndromeGERD w/o esophagitisNevus, non-neoplasticTobac co useSecondary polycythemia 9 Lang Mark. [address], [address], [place], [place], [address] , [place]. tel:[phone] Referring Provider: Mark Lang [address] [facility] [address], [place], [place], [address]. tel:[phone] OFFICE/OUTPA TIENT VISIT, [facility], [address] [place], [address], [place] tel:[phone] [facility] abdominal pain1 (chief complaint) BPH1 (chief complaint) low back pain1 (chief complaint) HTN (chief complaint) Essential (primary) hypertensionLumbago with sciatica, left sideBPH w/o LUTSUmbilical hernia without obstruction or gangreneHydrocele 8 Rickey Flores. [address], [facility] A, [place], [place], [address] , [place]. tel:[phone] Referring Provider: Zachary Chavarria [place], [address]. tel:[phone] OFFICE/OUTPA TIENT VISIT, [facility], [address] [place], [address], [place] tel:[phone] [facility] foot pain1 (chief complaint) chronic pain1 (chief complaint) GERD1 (chief complaint) HTN (chief complaint) GERD w/o esophagitisPain in unspecified footEssential (primary) hypertensionTobacco useChronic pain syndrome [address] [facility] [address], [place], [place], [address] , [place]. tel:[phone] Referring Provider: Zachary Chavarria [facility] A, [place], [place], [address]. tel:[phone] OFFICE/OUTPA TIENT VISIT, [facility], [address], [address], [place] tel:[phone] [facility] glucose1 (chief complaint) HLP (chief complaint) polycythem ia1 (chief complaint) chronic pain1 (chief complaint) GERD1 (chief complaint) HyperglycemiaHyperl ipidemiaSecondary polycythemiaGERD w/o esophagitis 8 Rickey Flores. [address], [address], [place], [place], [address] , [place]. [phone] Referring Provider: Zachary Chavarria [address], [place], [place], [address]. tel:[phone] PREV VISIT, NEW, AGE 40-64 [facility], [address], [place], [place], [address], [place] [phone] [facility] PHysical (chief complaint) Encntr for general adult medical exam w/o abnormal findings 8 Rickey Flores. [address], [address], [place], [place], [address] , [place]. [phone] Referring Provider: Zachary Chavarria [address], [place], [place], [address]. tel:[phone] Family History Family Member Type Diagnosis Age At Onset Brother Problem (finding) of mva Mother Problem (finding) thyroid CA Father Problem (finding) CAD (Cause Of ) 43 Mother Problem (finding) Alive and well Brother Problem (finding) of neck CA 50 Mother Problem (finding) knee replacement Payers Payer name Insurance type Covered alliance party ID Authoriza tibella(s) [facility] CI [id number] Social History Type Description Quantity Date Captured Comments Alcohol Use Details No Caffeine Use Details Unknown Tobacco Use Status Very heavy cigarette smoker (40+ cigs/day) Smoking Status Heavy tobacco smoker Sex Male Vital Signs Date / Time: Height Weight BMI Pulse Rate Blood Pressure Temperature Respiratory Rate Body Surface Area Head Circumference BMI percentile Pulse Ox Inhaled Ox 11:15 AM 73.00 in 166.40 lbs 21.9 5 kg/m eter (2) 87 /min 130/78 mm[Hg] 97.9 F 16 /min Chief Complaint And Reason For Visit From encounter dated '11/25/2024 11:11'. abd pain1 (chief complaint). Description: Pt c/o persistent right side abd pain Pt had negative CT Pt had EGD done which was benign Pt will do small capsule study soon Pt does have GERD and he is doing ok with omeprazole. weight loss1 (chief complaint). Description: Pt has been gaining weight with extra boost drink. Pt does have mild anxiety and depression and he could not tolerate remeron and zyprexa, which hurt his stomach and made him very tired .Pt states that his appetite is ok Pt denies any suicidal or homicidal thought Pt denies any crying spells anxiety1 (chief complaint). Description: Pt has mild anxiety and depression Pt denies any suicidal or homicidal thought Pt denies any crying spells. Pt states that remeron hurt his stomach and made him very tired during the day and zyprexa made him very tired. He stopped above meds after two days . Plan Of Treatment Date Type Action Status [...] ordered Referral Referred To: HAYLEY PACE [address] [place], [place], [id number] Ordered: Referrals: Allopathic & Osteopathic Physicians : Orthopaedic Surgery. HAYLEY PACE. Evaluate and treat ordered Referral Ordered: Dermatology (related to Nevus, non-neoplastic) ordered Referral Ordered: Referrals: Dermatology. Evaluate and treat ordered Referral Referred To: Vin HARDWICK, Abraham [facility]
[place] [address] [place], [place], [id number] Ordered: Referrals: Vin HARDWICK, Abraham Weiner. Evaluate and treat ordered Referral Ordered: US THYROID ordered Referral Ordered: Myke Shelton MD -Urology (related to BPH w/o LUTS) ordered Referral Referred To: Myke Shelton MD [address] [place], [place], [address] Ordered: Referrals: Urology. Myke Shelton MD. Evaluate and treat ordered Referral Referred To: Myke Shelton MD [address] [place], [place], [address] Ordered: Referrals: Myke Shelton MD. Evaluate and treat ordered Referral Referred To: Narayan Banks MD [address] [facility] [address]
[place], [address] Ordered: Referrals: Narayan Banks MD. Evaluate and [...] JAY [address] [place], [place], [id number] Ordered: Referrals: Allopathic & Osteopathic Physicians : [...] ordered Referral Referred To: José Miguel Catherine [address] [place], [place] [id number] Ordered: Referrals: Allopathic & Osteopathic Physicians : Surgery. José Miguel Catherine. Evaluate and treat ordered Referral Ordered: REGINA MACHUCA -Podiatric Medicine & Surgery Service Providers : Residential Appraiser (related to Pain in unspecified foot) ordered Referral Referred To: REGINA MACHUCA [address] [facility],[address] [place], [place], [phone] Ordered: Referrals: Podiatric Medicine & Surgery Service Providers : Residential Appraiser. REGINA MACHUCA. Evaluate and treat ordered Referral Ordered: CERVICAL SPINE XRAY 7 VIEWS ordered Referral Ordered: CT THORAX W/O DYE ordered History Of Present Illness Encounter Date Complaint History Of Prese nt Illness abd pain1 Pt c/o persisten t right side abd pain Pt had negative CT Pt had EGD done which was benign Pt will do small capsule study soon Pt does have GERD and he is doing ok with omeprazole. weight loss1 Pt has been gain ing weight with extra boost drink. Pt does have mild anxiety and depression and he could not tolerate remeron and zyprexa, which hurt his stomach and made him very tired .Pt states that his appetite is ok Pt denies any suicidal or homicidal thought Pt denies any crying spells anxiety1 Pt has mild anxi ety and depression Pt denies any suicidal or homicidal thought Pt denies any crying spells. Pt states that remeron hurt his stomach and made him very tired during the day and zyprexa made him very tired. He stopped above meds after two days . flu1 Pt tested positi ve for influenza A 5 days ago. Pt went to ER for flu like symptoms. Pt denies any fever, chill cough, sore throat anymore Pt denies any GI issue. Pt feels slightly lightheadedness. Pt notices acute onset of diffuse rash around upper chest and torso area since yesterday. low platelet1 Pt has borderlin e low platelet. Pt denies any bleeding or bruising. LFT ok Pt had negative CT abdomen. weight loss1 Pt has been losi ng weight unintentionally. Pt states that he just does not have appetite. Pt had negative Ct of abdomen and pelvis Pt has EGD scheduled in two weeks. depression1 Pt has chronic s evere anxiety and depression. Pt denies any suicidal or homicidal thought Pt denies any crying spells. abd pain1 Pt c/o acute ons et [...] Pt has not seen liver specialist at [facility] yet neck pain1 Pt has chronic [...] up appointment with liver specialist yet at [facility] He denies any abd pain neck [...] Pt has high MCV. 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 He is confused and is concerned He told me hematology referring him to a specialist at [facility] but he does not know why [...] smoking Related to Gener alized Anxiety Disorder Quit smoking Related to Secon tessa polycythemia Special diet education Related t o Body mass index (BMI) 26.0-26.9, adult Special diet education Related t o [...] adult Assessments Type Assessment Date assessment Generalized Anxiety Disorder Nov assessment Abnormal weight loss assessment Generalized abdominal pain Nov- Mental Status Date Cognitive Assessment Orientation - [place] ed to time, place, person, situation.
--- OUTSIDE RECORDS SUMMARY | 2024-12-30 05:42 | XMS_ITS | Clinical Summary ---
Author Organization [facility] Address [address] [place] [address] Care Team Providers Care Opticianry Teacher Name Role Phone Mark Lang MD Primary Care Provider [phone] Source Comments [facility],non-owned Affiliates and Associated Physician Practices is amultiple site organization consisting of ambulatory clinics and hospital sitesin [place], [place], [place] and [place]. This disclosure is being madepursuant to the Care Everywhere program and may not contain all information available regarding this patient. Last updated 18.[facility] Allergies Active Allergy Reactions Criticality Noted Date Comments Bee Venom Swelling 02/08/2019 Shortness of breath and swelling after bee sting Shortness of breath and swelling after bee sting Beef Allergy Swelling 01/25/2019 Latex Rash Medium 03/06/2018 blisters blisters Medications * Be aware that medications may not be up to date on this document. Alwaysverify current medications with the patient. 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
--- OUTSIDE RECORDS SUMMARY | 2024-12-30 05:42 | XMS_ITS | Data Portability ---
Author Organization [place] [facility] [place], Main Office Address [address] [place] [address] Care Team Providers Care Car Salter Name Role Phone SARA RAFAELA Primary Care Provider RAFAELA RUIZ Referring Provider [phone] Assessment Encounter Date Assessment Date Assessment LastModified by Organization Details LastModified Time 02/18/2024 02/18/2024 63 year old male present for his left knee. Reports pain for the past month, denies any injury. He had sharp pain walking on uneven ground, worse with activities. He has been taking meloxicam and hydrocodone without improvement. Denies prior injury. 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 Smokes 1 ppd ROS per questionnaire [...] DO Not Attach Compendium, Do Not Delete/merge, [address] 11:11:43 Surgeries None recorded. Imaging XR, knee 2023 024 [facility], [address], [place], [address], 4 09:01:36 Medication Orders Marcaine (PF) 0.5 % (5 mg/mL) injection solution [address] [id number], [address] [facility] [facility], [place], [place], [id number], 12:15:00 Kenalog 10 mg/mL suspension for injection [address] [id number], [address] , [place], [place], [phone], 12:15:00 Patient TargetsNo targets recorded. Patient InstructionsNo instructions recorded. Reason for Referral None Reported. Results Created Date Observation Date Name Description Value Unit Range Abnormal Flag Note LastModifiedBy Organization Detail LastModifiedTime 02/18/20 24 XR, knee No observ ation record ed. [email or web address] [facility] [address], [place], [address], 02/18/2024 10:39:50 Result Notes None recorded. Problems Name Problem SNOMED Code Status Onset Date Resolution Date Notes Provider Name and Address Organization Details Recorded Time Asthma 893763603 Active Not Available [facility] 3 20:21:28 Pain of left knee joint 423120535185571 Active 2023 JUAN Briones, [place] 10:39:47 Problem Notes None recorded. Procedures Surgical History Date Name Laterality Status Provider Name and Address Organization Details Recorded Time Ortho - Cortisone Injection completed Ba Good MD [address] [facility], [facility] [address], [place], [address], [place] 02/20/2024 15:08:44 Imaging Results Imaging Date Name Status LastModified by Organiz ation Details LastModified Time 02/18/2024 XR, knee completed [email or web address] [facility] [place] [address], [place], [address], 02/18/2024 10:39:50 Procedure Notes None recorded. Medical Equipment None Reported. Allergies Allergen ID Allergen Name Allergen Category Reaction Reaction Severity Criticality Documentation Date Start Date Code Code System Note Provider Name and Address Organization Details Recorded Time 46342 latex environme nt,medica tion Not available Not available Not available 10/16/2022 00897 91 RxNorm Not Available [facility] 20:22:53 Medications [...] Updated DateTime 02/18/2024 185.42 cm 21.8 kg/m2 92507.74 g JUAN Briones [facility] [employer] 02/18/2024 10:36:11 Social History None recorded. Functional Status Question Answer Note LastModified by Organization D etails LastModified Time What is your level of alcohol consumption? None [email or web address] Information not available 02/18/2024 Mental Status None recorded. Family History Relationship Description Onset Age of this Age Resolved Age Notes LastModified by Organization Details LastModified Time Maternal Grandmother Diabetes mellitus [email or web address] Not available 2023 10:37:24 Notes:cancer= brother Medical History No medical history recorded. Past Encounters Encounter ID Performer Location Encounter Start Date Encounter Closed Date Diagnosis/Indication Diagnosis SNOMED-CT Code Diagnosis ICD10 Code Diagnosis Note [id number] Ba Good MD [facility] [place] [address] [place] [address] 02/18/2024 10:18:05 02/18/2024 11:16:12 Pain of left knee joint 2947172444 54303 M25.562 Health Concerns Section Related Observation LastModified by Organization Detai ls LastModified Time None Recorded Concern Status LastModified by Organization Details LastModified Time None Recorded Advance Directives Directive None Recorded Payers Encounter Date Sequence Insurance Name Policy Number Policy Devi Covered Member ID Devi Member ID Guarantor Name 02/18/2024 1 [place] [id number] Shawna Zamora [id number] Foreign Zamora
--- OUTSIDE RECORDS SUMMARY | 2024-12-30 05:42 | XMS_ITS | Clinical Summary ---
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
--- OUTSIDE RECORDS SUMMARY | 2024-12-30 05:42 | XMS_ITS | Clinical Summary ---
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
--- OUTSIDE RECORDS SUMMARY | 2024-12-30 05:42 | XMS_ITS | Referral Summary ---
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
--- OUTSIDE RECORDS SUMMARY | 2024-12-30 05:42 | XMS_ITS | Clinical Summary ---
Author Organization [facility] Address [address], [facility] [address] [place] [address] Phone Care Team Providers Care Impregnator Name Role Phone Mark Lang Primary Care Provider [phone] Gallo Del Castillo MD Unavailable Allergies Active Allergy Reactions Criticality Noted Date [...] PSA 0.86 0.00 - 4.00 ng/mL CANCER TILE SETTER [facility] Comment: Maude Paramagnetic Particle Chemiluminescent Immunoassay Method Blood specimen (specimen) 06/09/2019 10:50 AM CDT Mark Lang CHEMISTRY ORDERABLES Final Resul t CANCER TILE SETTER [facility] [place] [address], from Last 3 Months or Most Recently Relevant to Health Maintenance Insurance [facility] Care Teams Impregnator Relationship Specialty Start Date End Date Mark Lang [address] [place] [address] PCP - General Family Medicine 01/01/19 Gallo Del Castillo MD [address] [place] [address] Consulting Physician Oncology 01/01/19
--- OUTSIDE RECORDS SUMMARY | 2024-12-30 05:42 | XMS_ITS | Encounter Summary ---
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 PERFORMED BY NUCLEIC ACID AMPLIFICATION PCR FIRST TEST NO 04/17/2021 12:21 PM CDT [facility] EMPLOYED IN HEALTHCARE NO 04/17/2021 12:21 PM CDT [facility] SYMPTOMATIC DEFINED BY CDC NO 04/17/2021 12:21 PM CDT [facility] HOSPITALIZATION STATUS NO 04/17/2021 12:21 PM CDT [facility] PATIENT IN ICU NO 04/17/2021 12:21 PM CDT [facility] RESIDENT OF [facility] NO 04/17/2021 12:21 PM CDT [facility] NASAL STRUCTURE / Unknown 04/17/2021 9:50 AM CDT us Reginald Elizondo MD MICROBIOLOGY - GENERAL ORDERABLE S Final Result [facility] [address] [place] [address], [place] [phone] [facility] [address] [place] [address], [place] [phone] documented in this encounter Visit Diagnoses Diagnosis Preop examination- Primary Preoperative examination, unspecified documented in this encounter Additional Health Concerns Infection Onset Date Last Indicated Resolved Time COVID-19 Rule Out 04/17/2021 04/17/2021 04/17/2021 9:19 PM CDT documented as of this encounter Care Teams Estate Planning Attorney Relationship Specialty Start Date End Date Mark Lang MD PCP - General FAMILY PRACTICE 11/15/20 documented as of this encounter
[2024-12-30] MEDS: SIMETHICONE ORAL SUSPENSION 20 MG/0.3 ML 30 ML BOTTLE 0.6 ML PO (06:30)
[2024-12-30 06:42] VITALS: BP 123/78; PULSE 73; RESP 18; O2SAT 100
--- NOTE | 2024-12-30 06:44 | SUR.OPER ---
Patient brought to GI Lab. Instructions for patient undergoing Capsule Endoscopy reviewed with patient. Consent form signed. Sensor array applied to patient's abdomen and connected to recorded. Patient swallowed capsule with 14 ozs of water infused with Simethicone. Patient instructed they may have clear liquids at 0630 this AM and eat or drink at 0830 this AM. Patient instructed to return to GI Lab at 1500 this afternoon for removal of recording device and to call [phone] or to return to the hospital if any nausea and vomiting or abdominal pain is experienced.
== END 2024-12-30 05:41 | disposition home or self-care (01) ==
PROVIDERS: PCP Emergency Medicine; Referring Provider Internal Medicine Gastroenterology; Visit Provider Internal Medicine Gastroenterology
PROC: 0DJ07ZZ Inspection of Upper Intestinal Tract, Via Natural or Artificial Opening (ICD-10-PCS; CPT 91110; principal; 2024-12-30 07:00)
DX: R10.84 Generalized abdominal pain (principal)
CPT/HCPCS: 91110

== ENCOUNTER 2025-07-06 09:12 | Emergency (ER) | payer BC, SELFPAY ==
--- NOTE | ~2025-07-06 | CT_ITS ---
EXAMINATION: CT abdomen pelvis w con DATE: 07/06/2025 10:52 INDICATION: Abdominal pain TECHNIQUE: Computed tomography (CT) of the abdomen and pelvis was performed with 100 mL Omnipaque-350 intravenous contrast. Automated exposure control and iterative reconstruction technique were employed. The dose-length product was 372.11 mGy-cm. COMPARISON: 10/09/2024 FINDINGS: Mild emphysema and mild dependent atelectasis in the bilateral lower lungs. Heart size is normal. Unchanged small pericardial effusion. Small sliding-type hiatal hernia. Unchanged mild intra and extra hepatic ductal or ductal dilation likely related to prior cholecystectomy with surgical clips the gallbladder fossa. Spleen, pancreas, right kidney and bilateral adrenal glands are normal. There are a few low-attenuation left renal cysts the largest measuring 1.9 cm. Moderate sigmoid colon predominant diverticulosis without adjacent from trace stranding to suggest diverticular colitis. Small bowel and appendix are normal. Bladder is normal. Prostatomegaly measuring 4.2 x 4.1 cm. No free intraperitonea l gas or fluid. No pathologically enlarged abdominal or pelvic lymphadenopathy. There is calcified atherosclerosis of the aorta and many of the other arteries. Moderate lumbosacral and mild lumbar and lower thoracic spondylosis. IMPRESSION: 1. No acute intra-abdominal/pelvic process. 2. Chronic small pericardial effusion. 3. Small sliding-type hiatal hernia. 4. Moderate sigmoid colon predominant diverticulosis. Reviewed, dictated and finalized at location A. HEN WORKER
[2025-07-06 09:13] VITALS: BP 129/88; PULSE 63; RESP 20; TEMP 36.1; O2SAT 100
[2025-07-06 10:01] VITALS: BP 130/93; PULSE 63; RESP 14; O2SAT 98
[2025-07-06 10:10] LABS: Hematocrit 42.4 % (42.0-52.0); Hemoglobin 14.8 g/dL (14.0-18.0); Immature Granulocyte Percent A 0.6 % (0-0.5); Lymphocytes Absolute Auto 1.29 K/mm3 (0.9-3.2); Mean Corpuscular HGB Conc 34.9 g/dl (32-36); Mean Corpuscular Hemoglobin 32.4 pg (26-34); Mean Corpuscular Volume 92.8 fl (80-100); Nucleated Red Blood Cells Absolute Auto 0.000 K/mm3 (0.0-0.012); Nucleated Red Blood Cells Perc 0.0 % (0.0-0.2); Platelet Count Result 175 k/mm3 (150-375); Red Blood Count 4.57 M/mm3 (4.6-6.20); White Blood Count 9.9 K/mm3 (4.5-10.0)
--- NOTE | 2025-07-06 10:24 | ED.GENADULT ---
HPI - General Adult General Chief complaint: Abdominal Pain Stated complaint: abd pain Time Seen by Provider: 07/06/25 09:39 History of Present Illness HPI narrative: 64-year-old male arrives by EMS presenting illness periumbilical abdominal pain that radiates up to his chest. He reports the pain is consistently achy and intermittently sharp. Reports he has had diarrhea for 3 months. He took Pepto today without relief. Patient's sister reports that he has been stressed taking care of a sick family member. Denies melena/hematochezia, urinary complaints, vomiting, fever/chills. Has a history of cholecystectomy but still has his appendix and a history of diverticulitis. Pack-a-day smoker for 40 years. Related Data Home Medications ?Medication ?Instructions ?Recorded ?Confirmed ?Last Taken ?Type hydrocodone 7.5 mg-acetaminophen 1 tablet PO Q6H PRN pain 10/23/24 12/22/24 Unknown History 325 mg tablet Allergies Allergy/AdvReac Type Severity Reaction Status Date / Time bee venom protein (honey bee) Allergy Severe Anaphylactic Verified 07/06/25 09:26 Shock latex Allergy Intermediate Rash Verified 07/06/25 09:26 Review of Systems Review of Systems: All systems reviewed & are unremarkable except as noted in HPI and below PMFSH Past Medical History Medical History Arthritis of ankle, left, degenerative Arthritis History of skin cancer Weight loss, unintentional Acute lateral meniscus tear of left knee Acute medial meniscus tear of left knee Colon polyp IBS (irritable bowel syndrome) Ulnar club hand Carpal tunnel syndrome Surgical History Surgical History Hx of cholecystectomy Family History Family History Unknown Arthritis Cancer Diabetes mellitus Social History Social History Smoking packs per day: 1 Smoking cigarettes per day: 20.0 Years smoked: 40 Smoking pack-years: 40.00 Smoking status: Current every day smoker Tobacco type: cigarettes Alcohol intake: never Substance use: never Substance use type: does not use Other substance usage details: OCC. Living arrangements: with family Occupation/Education: occupation Additional occupation/education comments: [employer] Gender identity (if verbalized by the patient): Male Spiritual care concerns: No Exam Narrative: GENERAL: Mild acute distress. HEAD: Normocephalic, atraumatic. EYES: PERRLA and EOMI. ENT: Nares clear, no rhinorrhea or epistaxis. Mucous membranes moist. Oropharynx without tonsillar hypertrophy exudate or other lesions. Bilateral TMs pearly larose non-bulging NECK: Supple. No adenopathy or masses. No carotid bruits or JVD CHEST: Clear to auscultation. No respiratory distress. No wheezes rales or rhonchi HEART: Regular rate and rhythm. No murmur heard. Normal peripheral pulses. ABDOMEN: Periumbilical and epigastric TTP, normal active bowel sounds. EXTREMITIES: Normal range of motion. No edema. SKIN: Warm, dry, no rash. NEURO: No focal deficits. Alert and oriented x3. PSYCH: Normal mood and affect Course Vital Signs Vital signs: Vital Signs Temperature 97.0 F L 07/06/25 09:13 Pulse Rate 63 07/06/25 09:13 Respiratory Rate 20 07/06/25 09:13 Blood Pressure 129/88 07/06/25 09:13 Pulse Oximetry 100 07/06/25 09:13 Oxygen Delivery Room Air 07/06/25 09:13 Temperature 97.0 F L 07/06/25 09:13 Pulse Rate 64 07/06/25 12:41 Respiratory Rate 18 07/06/25 12:41 Blood Pressure 113/71 07/06/25 12:41 Pulse Oximetry 97 07/06/25 12:41 Oxygen Delivery Room Air 07/06/25 09:13 Medical Decision Making [facility] Narrative Medical decision making narrative: 64-year-old male arrives by EMS presenting illness periumbilical abdominal pain that radiates up to his chest. He reports the pain is consistently achy and intermittently sharp. Reports he has had diarrhea for 3 months. He took Pepto today without relief. Patient's sister reports that he has been stressed taking care of a sick family member. Denies melena/hematochezia, urinary complaints, vomiting, fever/chills. Has a history of cholecystectomy but still has his appendix and a history of diverticulitis. Pack-a-day smoker for 40 years. Upon my initial assessment, patient is reporting severe pain despite receiving morphine from EMS. Administered Dilaudid and Zofran which improved patient's symptoms. Patient's abdomen is soft without significant pain or signs of surgical abdomen on serial exams. Vitals stable throughout visit. Lab and CT evaluations are reviewed and patient is felt to be a reasonable candidate for outpatient management. Patient was instructed as to limitations of CT and laboratory evaluation and encouraged to follow with PCP and other specialists for further evaluation. Patient already sees GI but given referral as a precaution. Administered Bentyl and GI cocktail prior to discharge. Discharge with scripts for Flanagan, omeprazole, and Zofran. Given reasons to return to the ED. Medical Records Medical records reviewed: Yes I reviewed the external patient's medical records. Vital Signs Vital Signs: Vital Signs Temperature 97.0 F L 07/06/25 09:13 Pulse Rate 63 07/06/25 09:13 Respiratory Rate 20 07/06/25 09:13 Blood Pressure 129/88 07/06/25 09:13 Pulse Oximetry 100 07/06/25 09:13 Oxygen Delivery Room Air 07/06/25 09:13 Temperature 97.0 F L 07/06/25 09:13 Pulse Rate 64 07/06/25 12:41 Respiratory Rate 18 07/06/25 12:41 Blood Pressure 113/71 07/06/25 12:41 Pulse Oximetry 97 07/06/25 12:41 Oxygen Delivery Room Air 07/06/25 09:13 Lab Data Lab results reviewed: Yes I reviewed the patient's lab results. 07/06/25 10:04 07/06/25 10:04 Labs: Lab Results 07/06/25 07/06/25 Range/Units 10:04 11:34 WBC 9.9 (4.5-10.0) K/mm3 RBC 4.57 L (4.6-6.20) M/mm3 Hgb 14.8 (14.0-18.0) g/dL Hct 42.4 (42.0-52.0) % MCV 92.8 (80-100) fl MCH 32.4 (26-34) pg MCHC 34.9 (32-36) g/dl RDW 12.2 (11.5-14.5) % Plt Count 175 D (150-375) k/mm3 MPV 9.4 (7.4-10.4) fl Immature Gran % (Auto) 0.6 H (0-0.5) % Neut % (Auto) 78.5 H (45.5-73.1) % Lymph % (Auto) 13.1 L (18.3-44.2) % [place] % (Auto) 5.4 (2.6-8.5) % Eos % (Auto) 1.9 (0-4.4) % Baso % (Auto) 0.5 (0.2-1.2) % Lymph # (Auto) 1.29 (0.9-3.2) K/mm3 [place] # (Auto) 0.5 (0.1-0.6) K/mm3 Eos # (Auto) 0.2 (0-0.3) K/mm3 Baso # (Auto) 0.1 (0.0-0.1) K/mm3 Abs Immat Gran (auto) 0.06 H (0.00-0.031) K/mm3 Absolute Neuts (auto) 7.8 H (1.3-6.7) K/mm3 Absolute Nucleated RBC 0.000 (0.0-0.012) K/mm3 Nucleated RBC % 0.0 (0.0-0.2) % Sodium 139 (137-145) mmol/L Potassium 3.7 (3.4-5.0) mmol/L Chloride 109 H (98-107) mmol/L Carbon Dioxide 23 (22-30) mmol/L Anion Gap 7 (4-12) mmol/L BUN 16 (9-20) mg/dL Creatinine 0.85 (0.7-1.3) mg/dL Estim Creat Clear Calc 87 ml/min Estimated GFR > 60 (59 - ) Glucose 114 H (65-110) mg/dL Calcium 9.1 (8.4-10.2) mg/dL Total Bilirubin 0.5 (0.2-1.3) mg/dL AST 59 (17-59) U/L ALT 38 (6-50) U/L Alkaline Phosphatase 101 (38-126) U/L Total Protein 6.9 (6.3-8.2) g/dL Albumin 4.2 (3.5-5.1) g/dL Lipase 193 (23-300) U/L Urine Color Yellow (Yellow) Urine Appearance Clear (Clear) Urine pH 5.0 (5.0-9.0) Ur Specific [place] 1.040 H (1.001-1.035) Urine Protein Negative (Negative) mg/dL Urine Glucose (UA) Negative (Negative) mg/dL Urine Ketones Negative (Negative) mg/dL Ur Blood (Man) Negative (Negative) Urine Nitrate Negative (Negative) Urine Bilirubin Negative (Negative) Urine Urobilinogen 0.2 (<2.0) mg/dL Leukocyte Esterase Rfl Negative (Negative) TORITO/UL Imaging Data Attestation: I personally reviewed and interpreted this imaging study as follows: Radiologist's impression: ITS Impressions Abdomen/Pelvis CT 07/06/25 10:54 IMPRESSION: 1. No acute intra-abdominal/pelvic process. 2. Chronic small pericardial effusion. 3. Small sliding-type hiatal hernia. 4. Moderate sigmoid colon predominant diverticulosis. ECG Data EKG #1: ECG completion date: 07/06/25 ECG completion time: 09:19 EKG Interpretation: normal rate, sinus rhythm and no ST changes Discharge Plan Discharge Clinical Impression: Abdominal pain Patient Disposition: Home Condition: Stable Instructions: Abdominal Pain (ED) Additional Instructions: Return to the ER if you experience fever, abdominal pain with nausea and vomiting, you are unable to keep down liquids or solids, blood in the stool, pain or burning with urination, blood in the urine or any other symptoms that are concerning to you. Take medications as prescribed. Do not drive, operate heavy machinery, drink alcohol while on opiates as this may cause further sedation. Small frequent meals. [place] diet. Hydrate with Gatorade and water Follow up with primary care doctor and established specialists. Will provide GI referral for further evaluation as needed. Patient Language: Hungarian Prescriptions: New hydrocodone-acetaminophen 7.5-325 mg tablet 1 tablet PO Q6H PRN (Reason: pain) Qty: 14 0RF omeprazole 10 mg capsule,delayed release(DR/EC) 10 mg PO DAILY Qty: 30 0RF ondansetron 4 mg tablet,disintegrating 4 mg PO Q6H PRN (Reason: nausea and vomiting) Qty: 20 0RF No Action hydrocodone-acetaminophen 7.5-325 mg tablet 1 tablet PO Q6H PRN (Reason: pain) omeprazole 10 mg capsule,delayed release(DR/EC) 10 mg PO DAILY Qty: 30 0RF ondansetron 4 mg tablet,disintegrating 4 mg PO Q8H PRN (Reason: nausea and vomiting) Qty: 15 0RF Follow-up/Referrals: Mark Lang MD [Primary Care Provider, Family Practice] Valentino Norman MD [Physician, Gastroenterology]
[2025-07-06 10:35] LABS: Alanine Aminotransferase 38 U/L (6-50); Albumin Level 4.2 g/dL (3.5-5.1); Alkaline Phosphatase 101 U/L (38-126); Anion Gap 7 mmol/L (4-12); Aspartate Amino Transferase 59 U/L (17-59); Bilirubin,Total 0.5 mg/dL (0.2-1.3); Blood Urea Nitrogen 16 mg/dL (9-20); Calcium 9.1 mg/dL (8.4-10.2); Carbon Dioxide 23 mmol/L (22-30); Chloride 109 mmol/L (98-107); Estimated CRCL calculation 87 ml/min; Estimated Glomerular Filt Rate > 60; Glucose 114 mg/dL (65-110); Lipase 193 U/L (23-300); Potassium 3.7 mmol/L (3.4-5.0); Sodium 139 mmol/L (137-145); Total Protein 6.9 g/dL (6.3-8.2)
[2025-07-06] MEDS: ONDANSETRON INJ 4 MG/2 ML VIAL IV PUSH (10:55)
[2025-07-06] MEDS: HYDROmorphone HCL INJ (*CRX) 1 MG/ML SYR 0.5 MG IV PUSH (10:56)
[2025-07-06 11:42] LABS: Add Urine Microscopic? NO; Appearance Urine Clear (Clear); Glucose Urine UA Negative (Negative); Leukocyte Esterase Ur Negative LEU/UL (Negative); Nitrate Urine Negative (Negative); Specific Grav Ur 1.040 (1.001-1.035)
[2025-07-06] MEDS: MAG HYDROX/AL HYDROX/SIMETH 30 ML UDC PO (12:35)
[2025-07-06] MEDS: DICYCLOMINE HCL 10 MG CAPSULE PO (12:35)
[2025-07-06 12:41] VITALS: BP 113/71; PULSE 64; RESP 18; O2SAT 97
--- NOTE | 2025-07-06 13:15 | ECG_ITS ---
Test Date: 2025-07-06 09:19:46 Measurements Intervals [place] Rate: 62 P: 40 ND: 123 QRS: 64 QRSD: 102 T: 71 QT: 414 QTc: 423 Interpretive Statements SINUS RHYTHM NORMAL ECG Compared to ECG 10/23/2024 17:34:25 No significant changes Electronically Signed On 07-06-2025 17:08:05 MEASUREMENT SUPERINTENDENT by Carson Frederick M.D.
--- OUTSIDE RECORDS SUMMARY | 2025-07-06 14:48 | XMS_ITS | Clinical Summary ---
Author Organization [facility] Address [address], [facility] [address] [place] [address] Phone Care Team Providers Care Director Athletic Name Role Phone Mark Lang Primary Care Provider [phone] Gallo Del Castillo MD Unavailable [phone] Allergies Active Allergy Reactions Criticality Noted Date [...] 8:52 AM CDT Height 185.4 cm (6' 1) 06/11/2019 8:52 AM CDT Body Mass Index 22.98 06/11/2019 8:52 AM CDT Plan of Treatment Health Maintenance Due Date Last Done Comments Hepatitis C Virus (HCV) Screening 1960 TdaP Immunization 1960 Varicella Immunization (1 of 2 - 13+ 2-dose series) 1973 Cologuard 2005 Colonoscopy 2005 Colorectal Cancer Screening 2005 Immunochemical Fecal Occult Blood 2005 Pneumococcal Immunization (5 0+ years) (1 of 1 - PCV) 2010 Zoster Immunization (1 of 2) 2010 Influenza Immunization (#1) 2025 SARS-COV-2 Immunization (3 - 2024- season) 2025 05/30/2021, 01/02/2021 Respiratory Syncytial Virus (RSV) Immunization (Adult) (1 - 1-dose 75+ series) 11/28/2035 PSA Discussion Discontinued 06/09/2019 Hepatitis B Immunization Aged Out No longer eligible based on patient's age to complete this topic Human Papillomavirus (HPV) Immunization Aged Out No longer eligible based [...] PSA 0.86 0.00 - 4.00 ng/mL [facility] Comment: Maude Paramagnetic Particle Chemiluminescent Immunoassay Method Blood specimen (specimen) 06/09/2019 10:50 AM CDT Mark Lang CHEMISTRY ORDERABLES Final Resul t [facility] [place] [address], from Last 3 Months or Most Recently Relevant to Health Maintenance Insurance [facility] Care Teams Director Athletic Relationship Specialty Start Date End Date Rickey Mark [address] [place] [address] PCP - General Family Medicine 01/01/19 Gallo Del Castillo MD [address] [place] [address] Consulting Physician Oncology 01/01/19
--- OUTSIDE RECORDS SUMMARY | 2025-07-06 14:48 | XMS_ITS | Clinical Summary ---
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 Gender Identity Not on file Sexual Orientation Not on file Last Filed Vital Signs Vital Sign Reading Time Taken Comments Blood Pressure - - Pulse - - Temperature - - Respiratory Rate 17 11/08/2021 9:11 AM CDT Oxygen Saturation - - Inhaled Oxygen Concentration - - Weight 79.4 kg (175 lb) 11/08/2021 9:11 AM CDT Height 185.4 cm (6' 1) 11/08/2021 9:11 AM CDT Body Mass Index 23.09 11/08/2021 9:11 AM CDT Plan of Treatment Not on file Insurance [facility] PPO Care Teams Jewelry Coater Relationship Specialty Start Date End Date Mark Lang MD [address] [place] [address] PCP - General Family Medicine 01/19/21
--- OUTSIDE RECORDS SUMMARY | 2025-07-06 14:48 | XMS_ITS | Clinical Summary ---
Author Organization [facility] [employer] Address [address] [place] [address] Care Team Providers Care Project Systems Engineer Name Role Phone Mark Lang MD Primary Care Provider [phone] Source Comments [facility] [employer] [employer],non-owned Affiliates and Associated Physician Practices is amultiple site organization consisting of ambulatory clinics and hospital sitesin [place], [place], [place] and [place]. This disclosure is being madepursuant to the Care Everywhere program and may not contain all information available regarding this patient. 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 Gender Identity Not on file Sexual Orientation Not on file Last Filed Vital Signs Vital Sign Reading Time Taken Comments Blood Pressure 127/82 11/16/2020 9:57 AM CDT Pulse 94 11/16/2020 9:57 AM CDT Temperature 36.4 C (97.6 F) 11/16/2020 9:57 AM CDT Respiratory Rate 18 07/20/2020 8:49 AM SECURITY INSTALLATION TECHNICIAN Oxygen Saturation 99% 11/16/2020 9:57 AM CDT Inhaled Oxygen Concentration - - Weight 78 kg (172 lb) 11/16/2020 9:57 AM CDT Height 185.4 cm (6' 1) 11/16/2020 9:57 AM CDT Body Mass Index [...] 11/28/1979 ZOSTER VACCINE (1 of 2) 2010 DEPRESSION SCREENING 08/18/2024 COVID-19 VACCINE (1 - 2024-2 6 season) 2025 INFLUENZA VACCINE (#1) 2025 Respiratory Syncytial Virus (RSV) Vaccine Pt: [...] patient's age to complete this topic Insurance [facility] Care Teams Project Systems Engineer Relationship Specialty Start Date End Date Mark Lang MD PCP - General 06/13/20
--- OUTSIDE RECORDS SUMMARY | 2025-07-06 14:48 | XMS_ITS | Encounter Summary ---
Author Organization [facility] Address [address] [place] [address] Care Team Providers Care Rug Setter Axminster Name Role Phone Mark Lang MD Primary Care Provider [phone] Encounter Details Date Type Department Care Team (Late st Contact Info) Description 01/01/2024 Lab Requisition [facility] - DermPath Lab [address] [place] [id number] Tanner Tse MD [address] [place] [address] Social History Tobacco Use Types Packs/Day Years Used Date Smoking Tobacco: Every Day Cigarettes Smokeless Tobacco: Never Alcohol Use Standard Drinks/Week Comments Not Currently 0 (1 standard drink = 0.6 oz pur e alcohol) Sex and Gender Information Value Date Recorded Sex Assigned at Not on file 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 Gender Identity Not on file Sexual Orientation Not on file documented as of this encounter Plan of Treatment Not on file documented as of this encounter Procedures Procedure Name Priority Date/Time Associated Diagnosis Comments DERMATOPATHOLOGY Routine 01/01/2024 3:33 AM CDT documented in this encounter Results * DERMATOPATHOLOGY (01/01/2024 3:33 AM CDT) Case Report Dermatopathology Report Case: [id number] Authorizing Provider: Tanner Tse MD Collected: 01/01/2024 03:33 AM Ordering Location: [facility] - Received: 01/02/2024 07:35 AM DermPath Lab Pathologist: Danuta Vásquez MD Specimen: Skin, left nasal ala 4:30 PM CDT DERMATOPATHOLOGY LABORATORY Final Diagnosis Specimen A. SKIN, left nasal ala: BASAL CELL CARCINOMA, NODULAR TYPE (C44.311) 4:30 PM CDT DERMATOPATHOLOGY LABORATORY at 1630 CDT Clinical History R/o BCC. 4:30 PM CDT [...] characteristic determined by the Dermatopathology Laboratory at [facility], directed by Dr. Candy Boles. These tests need not be, and therefore are not, approved by the [place] Food and Drug Administration. The tests are used for clinical purposes. Billing Codes Specimen Charges Stain Charges 61728 1 4:30 PM CDT DERMATOPATHOLOGY LABORATORY Embedded Images 4:30 PM CDT DERMATOPATHOLOGY LABORATORY Pathology/Cytolo gy TISSUE SPECIMEN FROM SKIN / Unknown 01/01/2024 3:33 AM CDT 01/02/2024 7:35 AM CDT us Tanner Tse MD LAB - PATHOLOGY/CYTOLOGY ORDERAB LES Final Result DERMATOPATHOLOGY LABORATORY [facility] - Department of Dermatology [address], [address] [phone] documented in this encounter Visit Diagnoses Not on filedocumented in this encounter Care Teams Rug Setter Axminster Relationship Specialty Start Date End Date Mark Lang MD PCP - General 06/13/20 documented as of this encounter
== END 2025-07-06 12:42 | disposition home or self-care (01) ==
PROVIDERS: PCP Emergency Medicine
DX: R10.33 Periumbilical pain (principal); F17.210 Nicotine dependence, cigarettes, uncomplicated
CPT/HCPCS: 36415; 74177; 80053; 81003; 83690; 85025; 93005; 96374; 96375; 99284; A9270; J1171; J2405; Q9967